=== PATIENT | male | born 1950 | race American Indian/Alaskan Native ===

== ENCOUNTER 2018-05-19 00:44 | Emergency (ER) | payer MEDICAID ==
[2018-05-19 03:32] VITALS: BP 164/75
== END 2018-05-19 10:08 | disposition left against medical advice (07) ==
LOC: ED 00:44
DX: E83.81 Hungry bone syndrome (principal); Z53.21 Procedure and treatment not carried out due to patient leaving prior to being seen by health care provider
CPT/HCPCS: 82962

== ENCOUNTER 2018-07-03 03:16 | Inpatient (IN) | payer MEDICAID, MEDICARE ==
[2018-07-03] MEDS ORDERED: NARCAN 2 MG/2 ML IV ONE (03:59)
[2018-07-03 04:00] LABS: Basophils % (Auto) 0.6 % (0.0-1.8); Eosinophils # (Auto) 0.2 K/mm3 (0.0-0.4); Eosinophils % (Auto) 2.4 % (0.0-4.3); Hematocrit 42.1 % (35.5-45.6); Hemoglobin 14.7 gm/dl (11.8-15.2); Lymphocytes # (Auto) 2.3 K/mm3 (1.2-5.4); Lymphocytes % (Auto) 36.4 % (13.4-35.0); Mean Corpuscular HGB Conc 35 % (32-34); Mean Corpuscular Hemoglobin 31 pg (28-32); Mean Corpuscular Volume 87 fl (84-94); Monocytes # (Auto) 0.7 K/mm3 (0.0-0.8); Monocytes % (Auto) 10.9 % (0.0-7.3); Platelet Count 164 K/mm3 (140-440); Red Blood Count 4.82 M/mm3 (3.65-5.03); Red Cell Distribution Width 15.4 % (13.2-15.2)
[2018-07-03 04:15] LABS: Alanine Aminotransferase 15 units/L (7-56); BUN/Creatinine Ratio 12; Blood Urea Nitrogen 16 mg/dL (9-20); Calcium 9.8 mg/dL (8.4-10.2); Hemolysis Index 15
--- NOTE | 2018-07-03 04:50 | Cat Scan Report ---
FINAL REPORT EXAM: CT HEAD/BRAIN WO CON HISTORY: ams TECHNIQUE: Routine axial imaging was obtained of the brain without IV contrast. There are no previous studies available for comparison. FINDINGS: There is mild age related atrophy. There is no evidence of acute stroke or hemorrhage. The ventricular system is symmetric in size. The basal cisterns appear normal. The visualized sinuses are clear. The mastoid air cells are well pneumatized. The calvarium appears intact. IMPRESSION: Age related atrophy. No evidence of acute stroke or hemorrhage.
[2018-07-03 05:07] LABS: Bilirubin,Urine NEG (Negative); Blood,Urine NEG (Negative); Color,Urine Yellow (Yellow); Mucus,Urine FEW /HPF; RBC,Urine < 1.0 /HPF (0.0-6.0); Urobilinogen,Urine < 2.0 mg/dL (<2.0)
[2018-07-03 05:22] LABS: Benzodiazepines Screen,Urine PRESUMPTIVE NEGATIVE; Cannabinoid Screen,Urine PRESUMPTIVE NEGATIVE; Cocaine Screen,Urine PRESUMPTIVE NEGATIVE; Methadone Screen,Urine PRESUMPTIVE NEGATIVE; Opiate Screen,Urine PRESUMPTIVE NEGATIVE
[2018-07-03 05:42] LABS: Amphetamine Screen,Urine PRESUMPTIVE POSITIVE
[2018-07-03] MEDS ORDERED: NACL 0.9% 1000 ML 1,000 ML IV ONE (06:28)
--- NOTE | 2018-07-03 07:06 | XRay Report ---
FINAL REPORT EXAM: XR CHEST 1V AP HISTORY: hypertension TECHNIQUE: A portable upright view the chest was obtained. FINDINGS: There are sternotomy sutures noted. The heart size is normal. The lungs are negative for infiltrates or congestion. Pleural fluid is not seen. The skeletal structures do not show any acute changes. IMPRESSION: Previous bypass surgery changes. No acute cardiopulmonary process.
[2018-07-03 07:08] LABS: INR 1.04 (0.87-1.13)
[2018-07-03 07:09] LABS: Partial Thromboplastin Time 25.4 Sec. (24.2-36.6)
[2018-07-03 07:18] LABS: Creatine Kinase MB 1.8 ng/mL (0.0-4.0)
--- NOTE | 2018-07-03 07:42 | Emergency Department Report ---
ED General Adult HPI - General Chief complaint: Altered Mental Status Stated complaint: LETHARGIC Time Seen by Provider: 07/03/18 06:02 Source: family, EMS Mode of arrival: Wheelchair Limitations: Altered Mental Status - History of Present Illness Initial comments: 67-year-old male with a history of schizophrenia was found by his daughter to be altered at about 2:30 AM. She noted the light was on in his room. She had room and found him to be lethargic. He was not speaking or following commands. She summoned EMS. Patient was transported to this facility without incident. The daughter states that he was apparently well yesterday with no antecedent symptoms. He had already had his initial medical screening prior to my arrival. On my evaluation he is responsive to stimuli both verbally and with purposeful movement. From what I can ascertain from previous notes his degree of lethargy is improving. He was noted to have amphetamines in his urine. According to his daughter he has no history of substance abuse and no prior overdose. She also denies any other episode of obtundation or seizure. -: unknown Improves with: none Worsens with: none - Related Data Allergies Allergy/AdvReac Type Severity Reaction Status Date / Time No Known Allergies Allergy Unverified 05/19/18 03:32 ED Review of Systems ROS: Stated complaint: LETHARGIC Other details as noted in HPI Comment: Unobtainable due to pts medical conditions ED Past Medical Hx - Past Medical History Previous Medical History?: Yes Hx Heart Attack/AMI: Yes (2005) Hx Diabetes: Yes Hx Psychiatric Treatment: Yes Additional medical history: SCHIZOPHRENIA - Surgical History Past Surgical History?: Yes Hx Open Heart Surgery: Yes (2005) - Social History Smoking Status: Former Smoker Substance Use Type: None ED Physical Exam - General Limitations: Altered Mental Status (I am giving the patient a GCS of 11, eye opening to stimuli, confused, localizes pain) General appearance: alert, in no apparent distress - Head Head exam: Present: atraumatic, normocephalic - Eye Eye exam: Present: normal appearance, PERRL, EOMI (as far as I can determine, no forced gaze deviation) - ENT ENT exam: Present: mucous membranes moist - Neck Neck exam: Present: normal inspection. Absent: tenderness, meningismus - Respiratory Respiratory exam: Present: normal lung sounds bilaterally. Absent: respiratory distress - Cardiovascular Cardiovascular Exam: Present: regular rate, normal rhythm. Absent: systolic murmur, diastolic murmur, rubs, gallop - GI/Abdominal GI/Abdominal exam: Present: soft, normal bowel sounds. Absent: distended, tenderness, guarding, rebound, rigid - Rectal Rectal exam: Present: deferred - Extremities Exam Extremities exam: Present: normal inspection, full ROM. Absent: calf tenderness - Back Exam Back exam: Present: normal inspection - Neurological Exam Neurological exam: Present: altered, CN II-XII intact (on limited exam) - Psychiatric Psychiatric exam: Present: other (obtunded) - Skin Skin exam: Present: warm, dry, intact, normal color. Absent: rash ED Course Vital Signs 07/03/18 07/03/18 07/03/18 03:25 03:48 03:49 Temperature 97.7 F Pulse Rate 78 73 74 Respiratory 20 15 14 Rate Blood Pressure 127/70 141/74 O2 Sat by Pulse 98 98 Oximetry 07/03/18 07/03/18 07/03/18 04:00 04:01 04:03 Temperature Pulse Rate 69 73 64 Respiratory 15 15 12 Rate Blood Pressure 123/62 123/62 123/62 O2 Sat by Pulse 98 99 98 Oximetry 07/03/18 07/03/18 07/03/18 04:05 04:07 04:09 Temperature Pulse Rate 74 65 71 Respiratory 12 14 12 Rate Blood Pressure 123/62 123/62 123/62 O2 Sat by Pulse 99 98 98 Oximetry 07/03/18 07/03/18 07/03/18 04:11 04:13 04:15 Temperature Pulse Rate 69 72 67 Respiratory 14 14 14 Rate Blood Pressure 123/62 123/62 123/62 O2 Sat by Pulse 98 98 98 Oximetry 07/03/18 07/03/18 07/03/18 04:17 04:19 04:21 Temperature Pulse Rate 71 70 65 Respiratory 12 12 14 Rate Blood Pressure 123/62 123/62 123/62 O2 Sat by Pulse 99 98 98 Oximetry 07/03/18 07/03/18 07/03/18 04:23 04:25 04:27 Temperature Pulse Rate 71 74 69 Respiratory 14 14 15 Rate Blood Pressure 123/62 123/62 123/62 O2 Sat by Pulse 99 99 98 Oximetry 07/03/18 07/03/18 07/03/18 04:29 04:30 05:35 Temperature Pulse Rate 70 64 Respiratory 12 13 Rate Blood Pressure 123/62 123/62 123/62 O2 Sat by Pulse 99 98 99 Oximetry 07/03/18 07/03/18 07/03/18 05:37 05:39 05:41 Temperature Pulse Rate 63 64 65 Respiratory 14 14 11 L Rate Blood Pressure 123/62 123/62 123/62 O2 Sat by Pulse 99 99 99 Oximetry 07/03/18 07/03/18 07/03/18 05:43 05:45 05:47 Temperature Pulse Rate 69 68 67 Respiratory 12 11 L 11 L Rate Blood Pressure 123/62 123/62 123/62 O2 Sat by Pulse 99 99 98 Oximetry 07/03/18 07/03/18 07/03/18 05:49 05:51 05:53 Temperature Pulse Rate 65 64 63 Respiratory 14 12 12 Rate Blood Pressure 123/62 123/62 123/62 O2 Sat by Pulse 99 99 99 Oximetry 07/03/18 07/03/18 07/03/18 05:55 05:57 05:59 Temperature Pulse Rate 69 70 69 Respiratory 12 11 L 10 L Rate Blood Pressure 123/62 123/62 123/62 O2 Sat by Pulse 98 99 98 Oximetry 07/03/18 07/03/18 07/03/18 06:01 06:03 06:05 Temperature Pulse Rate 64 69 65 Respiratory 12 14 11 L Rate Blood Pressure 123/62 123/62 123/62 O2 Sat by Pulse 99 100 98 Oximetry 07/03/18 07/03/18 07/03/18 06:07 06:09 06:11 Temperature Pulse Rate 70 68 66 Respiratory 11 L 11 L 10 L Rate Blood Pressure 123/62 123/62 123/62 O2 Sat by Pulse 99 99 99 Oximetry 07/03/18 07/03/18 07/03/18 06:13 06:15 06:17 Temperature Pulse Rate 66 66 66 Respiratory 11 L 10 L 11 L Rate Blood Pressure 123/62 123/62 123/62 O2 Sat by Pulse 98 98 98 Oximetry 07/03/18 07/03/18 07/03/18 06:19 06:21 06:23 Temperature Pulse Rate 66 66 61 Respiratory 11 L 11 L 14 Rate Blood Pressure 123/62 123/62 123/62 O2 Sat by Pulse 98 99 100 Oximetry 07/03/18 07/03/18 07/03/18 06:25 06:27 06:29 Temperature Pulse Rate 66 63 67 Respiratory 12 12 10 L Rate Blood Pressure 140/69 140/69 140/69 O2 Sat by Pulse 98 98 99 Oximetry 07/03/18 07/03/18 07/03/18 06:30 06:31 06:33 Temperature Pulse Rate 64 65 69 Respiratory 11 L 11 L 10 L Rate Blood Pressure 136/63 136/63 136/63 O2 Sat by Pulse 96 99 99 Oximetry 07/03/18 07/03/18 06:35 06:37 Temperature Pulse Rate 70 66 Respiratory 11 L 9 L Rate Blood Pressure 136/63 136/63 O2 Sat by Pulse 98 98 Oximetry - Reevaluation(s) Reevaluation #1: Patient is lethargic but responsive. He will be admitted to the medical service for further care and evaluation. 07/03/18 07:45 ED Medical Decision Making - Lab Data Result diagrams: 07/03/18 03:45 07/03/18 03:45 Laboratory Results - last 24 hr 07/03/18 07/03/18 07/03/18 03:31 03:45 03:45 WBC 6.3 RBC 4.82 Hgb 14.7 Hct 42.1 MCV 87 MCH 31 MCHC 35 H RDW 15.4 H Plt Count 164 Lymph % (Auto) 36.4 H [place] % (Auto) 10.9 H Eos % (Auto) 2.4 Baso % (Auto) 0.6 Lymph # 2.3 [place] # 0.7 Eos # 0.2 Baso # 0.0 Seg Neutrophils % 49.7 Seg Neutrophils # 3.2 PT INR APTT Sodium 141 Potassium 3.5 L Chloride 100.9 Carbon Dioxide 28 Anion Gap 16 BUN 16 Creatinine 1.3 Estimated GFR > 60 BUN/Creatinine Ratio 12 Glucose 115 H POC Glucose 105 Lactic Acid Calcium 9.8 Magnesium Total Bilirubin 0.20 AST 16 ALT 15 Alkaline Phosphatase 56 Ammonia Total Creatine Kinase CK-MB (CK-2) CK-MB (CK-2) Rel Index Troponin T NT-Pro-B Natriuret Pep Total Protein 6.8 Albumin 4.0 Albumin/Globulin Ratio 1.4 TSH Urine Color Urine Turbidity Urine pH Ur Specific [place] Urine Protein Urine Glucose (UA) Urine Ketones Urine Blood Urine Nitrite Urine Bilirubin Urine Urobilinogen Ur Leukocyte Esterase Urine WBC (Auto) Urine RBC (Auto) U Epithel Cells (Auto) Urine Mucus Urine Opiates Screen Urine Methadone Screen Acetaminophen Ur Barbiturates Screen Ur Phencyclidine Scrn Ur Amphetamines Screen U Benzodiazepines Scrn Urine Cocaine Screen U Marijuana (THC) Screen Drugs of Abuse Note Plasma/Serum Alcohol 07/03/18 07/03/18 07/03/18 03:45 03:45 06:38 WBC RBC Hgb Hct MCV MCH MCHC RDW Plt Count Lymph % (Auto) [place] % (Auto) Eos % (Auto) Baso % (Auto) Lymph # [place] # Eos # Baso # Seg Neutrophils % Seg Neutrophils # PT INR APTT Sodium Potassium Chloride Carbon Dioxide Anion Gap BUN Creatinine Estimated GFR BUN/Creatinine Ratio Glucose POC Glucose Lactic Acid 1.40 Calcium Magnesium Total Bilirubin AST ALT Alkaline Phosphatase Ammonia Total Creatine Kinase CK-MB (CK-2) CK-MB (CK-2) Rel Index Troponin T NT-Pro-B Natriuret Pep Total Protein Albumin Albumin/Globulin Ratio TSH 1.780 Urine Color Urine Turbidity Urine pH Ur Specific [place] Urine Protein Urine Glucose (UA) Urine Ketones Urine Blood Urine Nitrite Urine Bilirubin Urine Urobilinogen Ur Leukocyte Esterase Urine WBC (Auto) Urine RBC (Auto) U Epithel Cells (Auto) Urine Mucus Urine Opiates Screen Urine Methadone Screen Acetaminophen Ur Barbiturates Screen Ur Phencyclidine Scrn Ur Amphetamines Screen U Benzodiazepines Scrn Urine Cocaine Screen U Marijuana (THC) Screen Drugs of Abuse Note Plasma/Serum Alcohol < 0.01 07/03/18 07/03/18 07/03/18 06:38 06:38 06:38 WBC RBC Hgb Hct MCV MCH MCHC RDW Plt Count Lymph % (Auto) [place] % (Auto) Eos % (Auto) Baso % (Auto) Lymph # [place] # Eos # Baso # Seg Neutrophils % Seg Neutrophils # PT INR APTT Sodium Potassium Chloride Carbon Dioxide Anion Gap BUN Creatinine Estimated GFR BUN/Creatinine Ratio Glucose POC Glucose Lactic Acid Calcium Magnesium Total Bilirubin AST ALT Alkaline Phosphatase Ammonia 32.0 Total Creatine Kinase 68 CK-MB (CK-2) 1.8 CK-MB (CK-2) Rel Index 2.6 Troponin T NT-Pro-B Natriuret Pep Total Protein Albumin Albumin/Globulin Ratio TSH Urine Color Urine Turbidity Urine pH Ur Specific [place] Urine Protein Urine Glucose (UA) Urine Ketones Urine Blood Urine Nitrite Urine Bilirubin Urine Urobilinogen Ur Leukocyte Esterase Urine WBC (Auto) Urine RBC (Auto) U Epithel Cells (Auto) Urine Mucus Urine Opiates Screen Urine Methadone Screen Acetaminophen < 5.0 L Ur Barbiturates Screen Ur Phencyclidine Scrn Ur Amphetamines Screen U Benzodiazepines Scrn Urine Cocaine Screen U Marijuana (THC) Screen Drugs of Abuse Note Plasma/Serum Alcohol 07/03/18 07/03/18 07/03/18 06:38 06:38 Unknown WBC RBC Hgb Hct MCV MCH MCHC RDW Plt Count Lymph % (Auto) [place] % (Auto) Eos % (Auto) Baso % (Auto) Lymph # [place] # Eos # Baso # Seg Neutrophils % Seg Neutrophils # PT 14.1 INR 1.04 APTT 25.4 Sodium Potassium Chloride Carbon Dioxide Anion Gap BUN Creatinine Estimated GFR BUN/Creatinine Ratio Glucose POC Glucose Lactic Acid Calcium Magnesium 1.90 Total Bilirubin AST ALT Alkaline Phosphatase Ammonia Total Creatine Kinase CK-MB (CK-2) CK-MB (CK-2) Rel Index Troponin T < 0.010 NT-Pro-B Natriuret Pep 127.2 Total Protein Albumin Albumin/Globulin Ratio TSH Urine Color Yellow Urine Turbidity Clear Urine pH 5.0 Ur Specific [place] 1.020 Urine Protein 30 mg/dl Urine Glucose (UA) 50 Urine Ketones Neg Urine Blood Neg Urine Nitrite Neg Urine Bilirubin Neg Urine Urobilinogen < 2.0 Ur Leukocyte Esterase Neg Urine WBC (Auto) 2.0 Urine RBC (Auto) < 1.0 U Epithel Cells (Auto) < 1.0 Urine Mucus Few Urine Opiates Screen Urine Methadone Screen Acetaminophen Ur Barbiturates Screen Ur Phencyclidine Scrn Ur Amphetamines Screen U Benzodiazepines Scrn Urine Cocaine Screen U Marijuana (THC) Screen Drugs of Abuse Note Plasma/Serum Alcohol 07/03/18 Unknown WBC RBC Hgb Hct MCV MCH MCHC RDW Plt Count Lymph % (Auto) [place] % (Auto) Eos % (Auto) Baso % (Auto) Lymph # [place] # Eos # Baso # Seg Neutrophils % Seg Neutrophils # PT INR APTT Sodium Potassium Chloride Carbon Dioxide Anion Gap BUN Creatinine Estimated GFR BUN/Creatinine Ratio Glucose POC Glucose Lactic Acid Calcium Magnesium Total Bilirubin AST ALT Alkaline Phosphatase Ammonia Total Creatine Kinase CK-MB (CK-2) CK-MB (CK-2) Rel Index Troponin T NT-Pro-B Natriuret Pep Total Protein Albumin Albumin/Globulin Ratio TSH Urine Color Urine Turbidity Urine pH Ur Specific [place] Urine Protein Urine Glucose (UA) Urine Ketones Urine Blood Urine Nitrite Urine Bilirubin Urine Urobilinogen Ur Leukocyte Esterase Urine WBC (Auto) Urine RBC (Auto) U Epithel Cells (Auto) Urine Mucus Urine Opiates Screen Presumptive negative Urine Methadone Screen Presumptive negative Acetaminophen Ur Barbiturates Screen Presumptive negative Ur Phencyclidine Scrn Presumptive negative Ur Amphetamines Screen Presumptive positive U Benzodiazepines Scrn Presumptive negative Urine Cocaine Screen Presumptive negative U Marijuana (THC) Screen Presumptive negative Drugs of Abuse Note Disclamer Plasma/Serum Alcohol - EKG Data -: EKG Interpreted by Me EKG shows normal: sinus rhythm, axis, intervals, ST-T waves Rate: normal - EKG Data Interpretation: other (Q's in the inferior lead consistent with old zone) - Radiology Data Radiology results: report reviewed interpreted by me: CT of the head shows no acute process chest x-ray shows old CABG no acute process Critical care attestation.: If time is entered above; I have spent that time in minutes in the direct care of this critically ill patient, excluding procedure time. ED Disposition Clinical Impression: Altered mental status Qualifiers: Altered mental status type: stupor Qualified Code(s): R40.1 - Stupor Disposition: 09 OP ADMIT IP TO THIS HOSP Is pt being admited?: Yes Does the pt Need Aspirin: Yes Condition: Stable Referrals: PRIMARY CARE, [Primary Care Provider] - 3-5 Days Time of Disposition: 07:48
[2018-07-03] MEDS ORDERED: ASPIRIN PR ONE (07:48)
--- NOTE | 2018-07-03 08:48 | History and Physical Report ---
History of Present Illness Date of examination: 07/03/18 Date of admission: 07/03/18 07:49 Chief complaint: Altered mental status History of present illness: 67 year old -[place] male with past medical history significant for hypertension, hyperlipidemia, schizophrenia, diabetes mellitus, CAD status post CABG brought via EMS to the emergency department for complaints of altered mental status. Patient lives with his niece, and around 11:30 PM last night he was lying on the bed unresponsive. She called EMS and brought to the emergency department. Patient was discharged recently from [facility] for the management of his schizophrenia. Patient restarted wheezes on olanzapine yesterday. He had Inveg injection 2 weeks ago. Patient didn't have any fever, chills, cough, shortness of breath, chest pain. Patient can take care of his airways. Review of system couldn't be OBTAINED because the patient was altered. Past History Past Medical History: CAD, diabetes, hypertension Past Surgical History: CABG Social history: full code. denies: smoking, alcohol abuse, prescription drug abuse, IV drug use Family history: no significant family history Medications and Allergies Allergies Allergy/AdvReac Type Severity Reaction Status Date / Time No Known Allergies Allergy Unverified 05/19/18 03:32 Home Medications Medication Instructions Recorded Confirmed Last Taken Type AtorvaSTATin [Lipitor] 20 mg PO QHS 07/03/18 07/03/18 07/02/18 History HumaLOG Mix 75/25 Vial 20 units SUB-Q QPM 07/03/18 07/03/18 07/02/18 History HumaLOG Mix 75/25 Vial 28 units SUB-Q QAM 07/03/18 07/03/18 07/02/18 History Insulin Regular, Human [HumuLIN R] See Protocol SUB-Q ACHS 07/03/18 07/03/18 History Metoprolol [Lopressor TAB] 50 mg PO DAILY 07/03/18 07/03/18 07/02/18 History Naproxen [Naprosyn] 375 mg PO BID 07/03/18 07/03/18 07/02/18 History OLANZapine [Zyprexa] 2 tab PO QHS 07/03/18 07/03/18 07/02/18 History [place]-3/Dha/Epa/Fish Oil [[place] 3 1 gm PO DAILY 07/03/18 07/03/18 07/02/18 History 500 Softgel] Paliperidone Palmitate [Invega 117 mg IM QMONTH 07/03/18 07/03/18 06/13/18 History Sustenna] metFORMIN [Glucophage] 500 mg PO BID 07/03/18 07/03/18 07/02/18 History traZODone [Desyrel] 2 tab PO QHS PRN 07/03/18 07/03/18 07/02/18 History Active Meds: Active Medications Sodium Chloride (Nacl 0.9% 1000 Ml) 1,000 mls @ 125 mls/hr IV ONCE ONE Stop: 07/03/18 14:27 Last Admin: 07/03/18 06:50 Dose: 125 mls/hr Exam - Physical Exam Narrative exam: Not in cardiopulmonary distress. The patient appeared well nourished and normally developed. Vital signs as documented. Head exam is unremarkable. No scleral icterus . Neck is without jugular venous distension, thyromegaly, or carotid bruits. Lungs are clear to auscultation. Cardiac exam reveals regular rate and Rhythm. First and second heart sounds normal. No murmurs, rubs or gallops. Abdominal exam reveals normal bowel sounds, no masses, no organomegaly and no aortic enlargement. Extremities are nonedematous and both femoral and pedal pulses are normal. 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 - Constitutional Vitals: Temp Pulse Resp BP Pulse Ox 97.7 F 62 10 L 152/69 99 07/03/18 03:25 07/03/18 08:21 07/03/18 08:21 07/03/18 08:21 07/03/18 08:21 Results - Labs CBC & Chem 7: 07/03/18 03:45 07/03/18 03:45 Labs: Laboratory Last Values WBC 6.3 K/mm3 (4.5-11.0) 07/03/18 03:45 RBC 4.82 M/mm3 (3.65-5.03) 07/03/18 03:45 Hgb 14.7 gm/dl (11.8-15.2) 07/03/18 03:45 Hct 42.1 % (35.5-45.6) 07/03/18 03:45 MCV 87 fl (84-94) 07/03/18 03:45 MCH 31 pg (28-32) 07/03/18 03:45 MCHC 35 % (32-34) H 07/03/18 03:45 RDW 15.4 % (13.2-15.2) H 07/03/18 03:45 Plt Count 164 K/mm3 (140-440) 07/03/18 03:45 Lymph % (Auto) 36.4 % (13.4-35.0) H 07/03/18 03:45 [place] % (Auto) 10.9 % (0.0-7.3) H 07/03/18 03:45 Eos % (Auto) 2.4 % (0.0-4.3) 07/03/18 03:45 Baso % (Auto) 0.6 % (0.0-1.8) 07/03/18 03:45 Lymph # 2.3 K/mm3 (1.2-5.4) 07/03/18 03:45 [place] # 0.7 K/mm3 (0.0-0.8) 07/03/18 03:45 Eos # 0.2 K/mm3 (0.0-0.4) 07/03/18 03:45 Baso # 0.0 K/mm3 (0.0-0.1) 07/03/18 03:45 Seg Neutrophils % 49.7 % (40.0-70.0) 07/03/18 03:45 Seg Neutrophils # 3.2 K/mm3 (1.8-7.7) 07/03/18 03:45 PT 14.1 Sec. (12.2-14.9) 07/03/18 06:38 INR 1.04 (0.87-1.13) 07/03/18 06:38 APTT 25.4 Sec. (24.2-36.6) 07/03/18 06:38 Sodium 141 mmol/L (137-145) 07/03/18 03:45 Potassium 3.5 mmol/L (3.6-5.0) L 07/03/18 03:45 Chloride 100.9 mmol/L (98-107) 07/03/18 03:45 Carbon Dioxide 28 mmol/L (22-30) 07/03/18 03:45 Anion Gap 16 mmol/L 07/03/18 03:45 BUN 16 mg/dL (9-20) 07/03/18 03:45 Creatinine 1.3 mg/dL (0.8-1.5) 07/03/18 03:45 Estimated GFR > 60 ml/min 07/03/18 03:45 BUN/Creatinine Ratio 12 % 07/03/18 03:45 Glucose 115 mg/dL (75-100) H 07/03/18 03:45 POC Glucose 105 (70-105) 07/03/18 03:31 Lactic Acid 1.40 mmol/L (0.7-2.0) 07/03/18 06:38 Calcium 9.8 mg/dL (8.4-10.2) 07/03/18 03:45 Magnesium 1.90 mg/dL (1.7-2.3) 07/03/18 06:38 Total Bilirubin 0.20 mg/dL (0.1-1.2) 07/03/18 03:45 AST 16 units/L (5-40) 07/03/18 03:45 ALT 15 units/L (7-56) 07/03/18 03:45 Alkaline Phosphatase 56 units/L (35-129) 07/03/18 03:45 Ammonia 32.0 umol/L (25-60) 07/03/18 06:38 Total Creatine Kinase 68 units/L (55-170) 07/03/18 06:38 CK-MB (CK-2) 1.8 ng/mL (0.0-4.0) 07/03/18 06:38 CK-MB (CK-2) Rel Index 2.6 (0-4) 07/03/18 06:38 Troponin T < 0.010 ng/mL (0.00-0.029) 07/03/18 06:38 NT-Pro-B Natriuret Pep 127.2 pg/mL (0-900) 07/03/18 06:38 Total Protein 6.8 g/dL (6.3-8.2) 07/03/18 03:45 Albumin 4.0 g/dL (3.9-5) 07/03/18 03:45 Albumin/Globulin Ratio 1.4 % 07/03/18 03:45 TSH 1.780 mlU/mL (0.270-4.200) 07/03/18 03:45 Urine Color Yellow (Yellow) 07/03/18 Unknown Urine Turbidity Clear (Clear) 07/03/18 Unknown Urine pH 5.0 (5.0-7.0) 07/03/18 Unknown Ur Specific [place] 1.020 (1.003-1.030) 07/03/18 Unknown Urine Protein 30 mg/dl mg/dL (Negative) 07/03/18 Unknown Urine Glucose (UA) 50 mg/dL (Negative) 07/03/18 Unknown Urine Ketones Neg mg/dL (Negative) 07/03/18 Unknown Urine Blood Neg (Negative) 07/03/18 Unknown Urine Nitrite Neg (Negative) 07/03/18 Unknown Urine Bilirubin Neg (Negative) 07/03/18 Unknown Urine Urobilinogen < 2.0 mg/dL (<2.0) 07/03/18 Unknown Ur Leukocyte Esterase Neg (Negative) 07/03/18 Unknown Urine WBC (Auto) 2.0 /HPF (0.0-6.0) 07/03/18 Unknown Urine RBC (Auto) < 1.0 /HPF (0.0-6.0) 07/03/18 Unknown U Epithel Cells (Auto) < 1.0 /HPF (0-13.0) 07/03/18 Unknown Urine Mucus Few /HPF 07/03/18 Unknown Urine Opiates Screen Presumptive negative 07/03/18 Unknown Urine Methadone Screen Presumptive negative 07/03/18 Unknown Acetaminophen < 5.0 ug/mL (10.0-30.0) L 07/03/18 06:38 Ur Barbiturates Screen Presumptive negative 07/03/18 Unknown Ur Phencyclidine Scrn Presumptive negative 07/03/18 Unknown Ur Amphetamines Screen Presumptive positive 07/03/18 Unknown U Benzodiazepines Scrn Presumptive negative 07/03/18 Unknown Urine Cocaine Screen Presumptive negative 07/03/18 Unknown U Marijuana (THC) Screen Presumptive negative 07/03/18 Unknown Drugs of Abuse Note Disclamer 07/03/18 Unknown Plasma/Serum Alcohol < 0.01 % (0-0.07) 07/03/18 03:45 Assessment and Plan Assessment and plan: 67-year-old -[place] woman with medical history significant for schizophrenia presented to the emergency department for complaints of altered mental status. Toxic encephalopathy - UDS is positive for amphetamine - His niece denied he has been using any drugs - Patient was of olanzapine for the last 2 weeks and restarted yesterday, could be due to drug reaction - Patient is improving, protect his airway, started to wake up and talk Schizophrenia - Hold his medications, mental health consult placed for medication management Hypertension, CAD, hyperlipidemia - Continue aspirin, statin, and metoprolol DVT prophylaxis - Lovenox Disposition - Admit to inpatient care
[2018-07-03] MEDS ORDERED: HumuLIN R SUB-Q SCH ×2 (16:30)
[2018-07-03] MEDS: HumuLIN R SUB-Q SCH ×2 (16:30→22:05)
[2018-07-03] MEDS: LOVENOX SUB-Q SCH (22:05)
[2018-07-04 07:37] LABS: BUN/Creatinine Ratio 13; Blood Urea Nitrogen 10 mg/dL (9-20); Calcium 8.5 mg/dL (8.4-10.2); Hemolysis Index 7
[2018-07-04] MEDS ORDERED: K-DUR PO ONE (07:51)
[2018-07-04] MEDS: HumuLIN R SUB-Q SCH ×4 (08:14→22:45)
[2018-07-04] MEDS: LOPRESSOR PO SCH (09:14)
--- NOTE | 2018-07-04 14:25 | Progress Note ---
Assessment and Plan Assessment and plan: 67-year-old -Turkish woman with medical history significant for schizophrenia presented to the emergency department for complaints of altered mental status. Toxic encephalopathy - UDS is positive for amphetamine, but patient denied using - His niece denied he has been using any drugs - Patient was of olanzapine for the last 2 weeks and restarted yesterday, could be due to drug reaction - Resolved, patient is alert and oriented Schizophrenia - Hold his medications, mental health consult placed for medication management Hypertension, CAD, hyperlipidemia - Continue aspirin, statin, and metoprolol DVT prophylaxis - Lovenox Disposition - Patient can be discharged once psych adjust his medications History Interval history: Patient was seen and evaluated this morning, patient was alert and oriented. Hospitalist Physical - Physical exam Narrative exam: Not in cardiopulmonary distress. The patient appeared well nourished and normally developed. Vital signs as documented. Head exam is unremarkable. No scleral icterus . Neck is without jugular venous distension, thyromegaly, or carotid bruits. Lungs are clear to auscultation. Cardiac exam reveals regular rate and Rhythm. First and second heart sounds normal. No murmurs, rubs or gallops. Abdominal exam reveals normal bowel sounds, no masses, no organomegaly and no aortic enlargement. Extremities are nonedematous and both femoral and pedal pulses are normal. 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 - Constitutional Vitals: Temp Pulse Resp BP Pulse Ox 98.2 F 55 L 20 153/76 96 07/04/18 05:56 07/04/18 09:14 07/04/18 05:56 07/04/18 09:14 07/04/18 05:56 Results - Labs CBC & Chem 7: 07/03/18 03:45 07/04/18 06:14 Labs: Laboratory Last Values WBC 6.3 K/mm3 (4.5-11.0) 07/03/18 03:45 RBC 4.82 M/mm3 (3.65-5.03) 07/03/18 03:45 Hgb 14.7 gm/dl (11.8-15.2) 07/03/18 03:45 Hct 42.1 % (35.5-45.6) 07/03/18 03:45 MCV 87 fl (84-94) 07/03/18 03:45 MCH 31 pg (28-32) 07/03/18 03:45 MCHC 35 % (32-34) H 07/03/18 03:45 RDW 15.4 % (13.2-15.2) H 07/03/18 03:45 Plt Count 164 K/mm3 (140-440) 07/03/18 03:45 Lymph % (Auto) 36.4 % (13.4-35.0) H 07/03/18 03:45 Spink % (Auto) 10.9 % (0.0-7.3) H 07/03/18 03:45 Eos % (Auto) 2.4 % (0.0-4.3) 07/03/18 03:45 Baso % (Auto) 0.6 % (0.0-1.8) 07/03/18 03:45 Lymph # 2.3 K/mm3 (1.2-5.4) 07/03/18 03:45 Spink # 0.7 K/mm3 (0.0-0.8) 07/03/18 03:45 Eos # 0.2 K/mm3 (0.0-0.4) 07/03/18 03:45 Baso # 0.0 K/mm3 (0.0-0.1) 07/03/18 03:45 Seg Neutrophils % 49.7 % (40.0-70.0) 07/03/18 03:45 Seg Neutrophils # 3.2 K/mm3 (1.8-7.7) 07/03/18 03:45 PT 14.1 Sec. (12.2-14.9) 07/03/18 06:38 INR 1.04 (0.87-1.13) 07/03/18 06:38 APTT 25.4 Sec. (24.2-36.6) 07/03/18 06:38 POC ABG pH 7.438 (7.35-7.45) 07/03/18 12:49 POC ABG pCO2 36.9 (35-45) 07/03/18 12:49 POC ABG pO2 75 (80-105) L 07/03/18 12:49 POC ABG HCO3 24.9 07/03/18 12:49 POC ABG Total CO2 26 07/03/18 12:49 POC ABG O2 Sat 95 07/03/18 12:49 POC ABG Base Excess 1 09/14/18 12:49 FiO2 21 % 07/03/18 12:49 Sodium 144 mmol/L (137-145) 07/04/18 06:14 Potassium 3.3 mmol/L (3.6-5.0) L 07/04/18 06:14 Chloride 110.4 mmol/L (98-107) H 07/04/18 06:14 Carbon Dioxide 23 mmol/L (22-30) 07/04/18 06:14 Anion Gap 14 mmol/L 07/04/18 06:14 BUN 10 mg/dL (9-20) 07/04/18 06:14 Creatinine 0.8 mg/dL (0.8-1.5) 07/04/18 06:14 Estimated GFR > 60 ml/min 07/04/18 06:14 BUN/Creatinine Ratio 13 % 07/04/18 06:14 Glucose 146 mg/dL (75-100) H 07/04/18 06:14 POC Glucose 258 (70-105) H 07/04/18 11:49 Lactic Acid 1.40 mmol/L (0.7-2.0) 07/03/18 06:38 Calcium 8.5 mg/dL (8.4-10.2) 07/04/18 06:14 Magnesium 1.90 mg/dL (1.7-2.3) 07/03/18 06:38 Total Bilirubin 0.20 mg/dL (0.1-1.2) 07/03/18 03:45 AST 16 units/L (5-40) 07/03/18 03:45 ALT 15 units/L (7-56) 07/03/18 03:45 Alkaline Phosphatase 56 units/L (35-129) 07/03/18 03:45 Ammonia 32.0 umol/L (25-60) 07/03/18 06:38 Total Creatine Kinase 68 units/L (55-170) 07/03/18 06:38 CK-MB (CK-2) 1.8 ng/mL (0.0-4.0) 07/03/18 06:38 CK-MB (CK-2) Rel Index 2.6 (0-4) 07/03/18 06:38 Troponin T < 0.010 ng/mL (0.00-0.029) 07/03/18 06:38 NT-Pro-B Natriuret Pep 127.2 pg/mL (0-900) 07/03/18 06:38 Total Protein 6.8 g/dL (6.3-8.2) 07/03/18 03:45 Albumin 4.0 g/dL (3.9-5) 07/03/18 03:45 Albumin/Globulin Ratio 1.4 % 07/03/18 03:45 TSH 1.780 mlU/mL (0.270-4.200) 07/03/18 03:45 Urine Color Yellow (Yellow) 07/03/18 Unknown Urine Turbidity Clear (Clear) 07/03/18 Unknown Urine pH 5.0 (5.0-7.0) 07/03/18 Unknown Ur Specific Distant 1.020 (1.003-1.030) 07/03/18 Unknown Urine Protein 30 mg/dl mg/dL (Negative) 07/03/18 Unknown Urine Glucose (UA) 50 mg/dL (Negative) 07/03/18 Unknown Urine Ketones Neg mg/dL (Negative) 07/03/18 Unknown Urine Blood Neg (Negative) 07/03/18 Unknown Urine Nitrite Neg (Negative) 07/03/18 Unknown Urine Bilirubin Neg (Negative) 07/03/18 Unknown Urine Urobilinogen < 2.0 mg/dL (<2.0) 07/03/18 Unknown Ur Leukocyte Esterase Neg (Negative) 07/03/18 Unknown Urine WBC (Auto) 2.0 /HPF (0.0-6.0) 07/03/18 Unknown Urine RBC (Auto) < 1.0 /HPF (0.0-6.0) 07/03/18 Unknown U Epithel Cells (Auto) < 1.0 /HPF (0-13.0) 07/03/18 Unknown Urine Mucus Few /HPF 07/03/18 Unknown Urine Opiates Screen Presumptive negative 07/03/18 Unknown Urine Methadone Screen Presumptive negative 07/03/18 Unknown Acetaminophen < 5.0 ug/mL (10.0-30.0) L 07/03/18 06:38 Ur Barbiturates Screen Presumptive negative 07/03/18 Unknown Ur Phencyclidine Scrn Presumptive negative 07/03/18 Unknown Ur Amphetamines Screen Presumptive positive 07/03/18 Unknown U Benzodiazepines Scrn Presumptive negative 07/03/18 Unknown Urine Cocaine Screen Presumptive negative 07/03/18 Unknown U Marijuana (THC) Screen Presumptive negative 07/03/18 Unknown Drugs of Abuse Note Disclamer 07/03/18 Unknown Plasma/Serum Alcohol < 0.01 % (0-0.07) 07/03/18 03:45
--- NOTE | 2018-07-04 19:57 | Consultation ---
History of Present Illness - Reason for Consult Consult date: 07/04/18 Reason for consult: psychiatric evaluation - Chief Complaint Chief complaint: "medication side effect" - History of Present Psychiatric Illness 67 year old AA male seen for psychiatric evaluation on the medical floor. His niece, Tonya Lawson ([phone]), and sister, Brandie Barr ([phone]), were present and provided information. Mr. Barr presented to the hospital with altered mental status after his niece found him to be unresponsive at home. The family believes his change in mental status was related to starting zyprexa 30mg after he was off of it for a little over 2 weeks. He was reportedly sedated for 18 hours. Now he is alert and oriented x 4. He reports being incarcerated for 30 years. He was diaganosed with schizophrenia, paranoid type in 1979 and has been on and off thorazine, and later, zyprexa until now. He was released from senior care 12/2017. He has an outpatient psychiatrist. He is on Invega Sustenna 117mg monthly and is due for it 07/16/2018. He has chronic paranoia and states "someone slipped me a maximo." He denies command hallucinations to harm himself or others. He denies suicidal or homicidal thoughts. His movement is a concern to the family. He is reported to have parkinson's symptoms and this was observed as well. Unable to assess his gait today. He is reported to move slowly and shuffle his feet. He has a tremor in his hands. He was recommended by his outpatient provider to see a neurologist for evaluation. Medications and Allergies Allergies Allergy/AdvReac Type Severity Reaction Status Date / Time No Known Allergies Allergy Unverified 05/19/18 03:32 Home Medications Medication Instructions Recorded Confirmed Last Taken Type AtorvaSTATin [Lipitor] 20 mg PO QHS 07/03/18 07/03/18 07/02/18 History HumaLOG Mix 75/25 Vial 20 units SUB-Q QPM 07/03/18 07/03/18 07/02/18 History HumaLOG Mix 75/25 Vial 28 units SUB-Q QAM 07/03/18 07/03/18 07/02/18 History Insulin Regular, Human [HumuLIN R] See Protocol SUB-Q ACHS 07/03/18 07/03/18 History Metoprolol [Lopressor TAB] 50 mg PO DAILY 07/03/18 07/03/18 07/02/18 History Naproxen [Naprosyn] 375 mg PO BID 07/03/18 07/03/18 07/02/18 History OLANZapine [Zyprexa] 2 tab PO QHS 07/03/18 07/03/18 07/02/18 History [place]-3/Dha/Epa/Fish Oil [[place] 3 1 gm PO DAILY 07/03/18 07/03/18 07/02/18 History 500 Softgel] Paliperidone Palmitate [Invega 117 mg IM QMONTH 07/03/18 07/03/18 06/13/18 History Sustenna] metFORMIN [Glucophage] 500 mg PO BID 07/03/18 07/03/18 07/02/18 History traZODone [Desyrel] 2 tab PO QHS PRN 07/03/18 07/03/18 07/02/18 History Active Meds: Active Medications Atorvastatin Calcium (Lipitor) 20 mg PO QHS [facility] Last Admin: 07/03/18 22:05 Dose: 20 mg Enoxaparin Sodium (Lovenox) 40 mg SUB-Q QDAY@2200 [facility] Last Admin: 07/03/18 22:05 Dose: 40 mg Insulin Human Regular (Humulin R) 0 units SUB-Q [facility]; Protocol Last Admin: 07/04/18 17:27 Dose: 10 units Metoprolol Tartrate (Lopressor) 50 mg PO DAILY [facility] Last Admin: 07/04/18 09:14 Dose: 50 mg Past psychiatric history - Past Medical History Past Medical History: diabetes - past Psychiatric treatment and history Psych: Schizophrenia - Social History Social history: lives with family Mental Status Exam - Vital signs Last Vital Signs Temp 98.4 F 07/04/18 17:33 Pulse 62 07/04/18 17:33 Resp 18 07/04/18 17:33 BP 159/74 07/04/18 17:33 Pulse Ox 97 07/04/18 17:33 - Exam Orientation: time, place, person Affect: normal Mood: calm Thought content: paranoia Thought Process: Intact Perceptions: other (denies auditory hallucinations) Speech: normal rate and pattern Concentration: focused Motor activity: other (see HPI) Level of consciousness: alert Memory: Intact Sleep Symptoms: None Interaction: cooperative Results Result Diagrams: 07/03/18 03:45 07/04/18 06:14 Abnormal lab results 07/03/18 07/04/18 07/04/18 Range/Units 21:24 05:54 06:14 Potassium 3.3 L (3.6-5.0) mmol/L Chloride 110.4 H (98-107) mmol/L Glucose 146 H (75-100) mg/dL POC Glucose 492 H 142 H (70-105) 07/04/18 07/04/18 Range/Units 07:59 11:49 Potassium (3.6-5.0) mmol/L Chloride (98-107) mmol/L Glucose (75-100) mg/dL POC Glucose 144 H 258 H (70-105) All other labs normal. Assessment and Plan Assessment and plan: Impression: His altered mental status was likely related to starting the Zyprexa back at 30mg after being off of it for over 2 weeks. schizophrenia, paranoid type tardive dyskinesia likely He has been on thorazine and other antipsychotics for almost 40 years. Recommendations: He has not received the zyprexa since being at [facility]. He is currently alert and is not overtly psychotic. The risk of continuing zyprexa outweighs the benefit. His family was informed they should monitor him for signs of psychotic behavior and call the [place] crisis line or seek emergency care if needed. He is up to date on Invega Sustenna. He is recommended to follow up with his outpatient psychiatrist this week (call Friday). The family expressed concern about his ability to ambulate. This was addressed with the nurse, who addressed it with the hospitalist. Education regarding TD was provided to pt and family, along with the available treatments, Austedo and Ingrezza. He is recommended to see a neurologist/ speciality movement clinic. All treatment recommendations were discussed with his sister and niece.
[2018-07-04] MEDS: LOVENOX SUB-Q SCH (22:47)
[2018-07-05 06:31] LABS: BUN/Creatinine Ratio 10; Blood Urea Nitrogen 9 mg/dL (9-20); Hemolysis Index 2
[2018-07-05] MEDS: HumuLIN R SUB-Q SCH ×2 (07:48→12:32)
[2018-07-05] MEDS: LOPRESSOR PO SCH (09:44)
--- NOTE | 2018-07-05 12:04 | Discharge Summary ---
Providers - Providers Date of Admission: 07/03/18 07:49 Date of discharge: 07/08/18 Attending physician: JULIENNE CRESPO MD 07/03/18 03:53 Speech Therapy Evaluation and Treat [CONS] Stat Reason For Exam: failed swallow screen 07/03/18 09:36 Consult to Mental Health [CONS] Routine Reason For Exam: AMS after olanzapine, schizophrenia Place consult to:: medication adjustment Notified:: Phone number called:: [phone] Was contact made?: Yes If yes, spoke with:: edita? 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 Hospital course: 67-year-old -[place] woman with medical history significant for schizophrenia presented to the emergency department for complaints of altered mental status. Patient was off olanzapine for the last 2 weeks and restarted on the day of the event, could be due to drug reaction. UDS was positive for amphetamine but the patient and his niece denied using any drugs. Patient's altered mental status/encephalopathy was evolving by the time I saw him in the ED and was completely resolved while he was in the floor. I believe most likely the change in mental status due to his medications. I consulted psychiatry to adjust his medications and they came and saw him and recommended to hold on olanzapine and to see his psychiatry next day. I have discussed the management plan with his niece and agreed with the management plan. Patient was alert and oriented at the time of discharge. patient discharged home in a stable condition. Disposition: DC-01 TO HOME OR SELFCARE Time spent for discharge: 32 minutes - Discharge Diagnoses (1) Altered mental status Status: Acute Qualifiers: Altered mental status type: stupor Qualified Code(s): R40.1 - Stupor (2) Schizophrenia Status: Acute Core Measure Documentation - Palliative Care Palliative Care/ Comfort Measures: Not Applicable - Core Measures Any of the following diagnoses?: none Exam - Physical Exam Narrative exam: Not in cardiopulmonary distress. The patient appeared well nourished and normally developed. Vital signs as documented. Head exam is unremarkable. No scleral icterus . Neck is without jugular venous distension, thyromegaly, or carotid bruits. Lungs are clear to auscultation. Cardiac exam reveals regular rate and Rhythm. First and second heart sounds normal. No murmurs, rubs or gallops. Abdominal exam reveals normal bowel sounds, no masses, no organomegaly and no aortic enlargement. Extremities are nonedematous and both femoral and pedal pulses are normal. 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 - Constitutional Vitals: Temp Pulse Resp BP Pulse Ox 97.6 F 78 20 148/84 98 07/05/18 04:58 07/05/18 09:44 07/05/18 04:58 07/05/18 09:44 07/05/18 04:58 Plan Activity: advance as tolerated Weight Bearing Status: Weight Bear as Tolerated Diet: regular, low salt, diabetic Additional Instructions: Patient advised to call his psychiatrist tomorrow. Follow up with: PRIMARY CAREMD [Primary Care Provider] - 3-5 Days
[2018-07-05 13:15] VITALS: BP 123/47
--- NOTE | 2018-07-05 14:57 | Progress Note ---
Subjective - Reason for Consult Consult date: 07/05/18 Reason for consult: Psychiatric Follow-up Evaluation - Chief Complaint Chief complaint: "medication side effect" Mental Status Exam - Vital signs Last Vital Signs Temp 98.4 F 07/05/18 12:19 Pulse 65 07/05/18 12:19 Resp 18 07/05/18 12:19 BP 123/47 07/05/18 12:19 Pulse Ox 96 07/05/18 12:19
== END 2018-07-05 16:00 | disposition home or self-care (01) | DRG 92 ==
LOC: ED 03:16 → 3A 07:49
PROVIDERS: ADMIT Internal Medicine; ATTEND Internal Medicine
PROC: 4A033R1 Measurement of Arterial Saturation, Peripheral, Percutaneous Approach (ICD-10-PCS; principal; 2018-07-03)
DX: G92 Toxic encephalopathy (principal); F20.0 Paranoid schizophrenia; E11.9 Type 2 diabetes mellitus without complications; I10 Essential (primary) hypertension; I25.10 Atherosclerotic heart disease of native coronary artery without angina pectoris; E78.5 Hyperlipidemia, unspecified; Z95.1 Presence of aortocoronary bypass graft; Z79.899 Other long term (current) drug therapy; Z79.4 Long term (current) use of insulin; I25.2 Old myocardial infarction
CPT/HCPCS: 36415; 36600; 51701; 70450; 71045; 80048; 80053; 80307; 80320; 81001; 82140; 82550; 82553; 82803; 82962; 83735; 83880; 84443; 84484; 85025; 85610; 85730; 93005; 93010; 96361; 96374; A9270-GY; G0480; G8978-GP; G8979-GP; G8980-GP; G8996-GN; G8997-GN; G8998-GN; J1650; J1815; J2310; J7030

== ENCOUNTER 2018-07-09 01:09 | Emergency (ER) | payer MEDICARE ==
[2018-07-09 01:27] VITALS: BP 135/72
[2018-07-09 02:18] LABS: Basophils % (Auto) 0.7 % (0.0-1.8); Eosinophils # (Auto) 0.1 K/mm3 (0.0-0.4); Eosinophils % (Auto) 2.1 % (0.0-4.3); Hematocrit 44.3 % (35.5-45.6); Hemoglobin 15.2 gm/dl (11.8-15.2); Lymphocytes # (Auto) 1.5 K/mm3 (1.2-5.4); Lymphocytes % (Auto) 26.5 % (13.4-35.0); Mean Corpuscular HGB Conc 34 % (32-34); Mean Corpuscular Hemoglobin 30 pg (28-32); Mean Corpuscular Volume 88 fl (84-94); Monocytes # (Auto) 0.7 K/mm3 (0.0-0.8); Monocytes % (Auto) 13.2 % (0.0-7.3); Platelet Count 167 K/mm3 (140-440); Red Blood Count 5.05 M/mm3 (3.65-5.03); Red Cell Distribution Width 15.3 % (13.2-15.2)
[2018-07-09 02:43] LABS: BUN/Creatinine Ratio 20; Blood Urea Nitrogen 22 mg/dL (9-20); Calcium 9.9 mg/dL (8.4-10.2); Hemolysis Index 8
[2018-07-09 04:11] LABS: Bilirubin,Urine NEG (Negative); Blood,Urine NEG (Negative); Color,Urine Yellow (Yellow); Mucus,Urine FEW /HPF; Protein,Urine <15 mg/dL mg/dL (Negative); Urobilinogen,Urine < 2.0 mg/dL (<2.0); WBC,Urine < 1.0 /HPF (0.0-6.0)
== END 2018-07-09 04:13 | disposition left against medical advice (07) ==
LOC: ED 01:09
DX: R73.9 Hyperglycemia, unspecified (principal); Z53.21 Procedure and treatment not carried out due to patient leaving prior to being seen by health care provider
CPT/HCPCS: 36415; 80048; 81001; 82805; 85025

== ENCOUNTER 2019-01-14 00:49 | Emergency (ER) | payer MEDICARE, MEDICAID ==
[2019-01-14 01:13] VITALS: BP 129/72
== END 2019-01-14 03:15 | disposition left against medical advice (07) ==
LOC: ED 00:49
DX: R53.1 Weakness (principal); Z53.21 Procedure and treatment not carried out due to patient leaving prior to being seen by health care provider

== ENCOUNTER 2020-05-27 03:14 | Inpatient (IN) | payer MEDICAID, MEDICARE ==
[2020-05-27] MEDS ORDERED: NALOXONE 2 MG/2 ML INJ ONE (03:35)
[2020-05-27] MEDS ORDERED: NALOXONE 2 MG/2 ML INJ IV ONE (03:35)
[2020-05-27] MEDS: NALOXONE 2 MG/2 ML INJ IV ONE ×2 (03:38→06:45)
[2020-05-27 03:44] LABS: Basophils % (Auto) 0.5 % (0.0-1.8); Eosinophils # (Auto) 0.1 K/mm3 (0.0-0.4); Eosinophils % (Auto) 1.8 % (0.0-4.3); Hematocrit 37.2 % (35.5-45.6); Hemoglobin 12.7 gm/dl (11.8-15.2); Lymphocytes # (Auto) 1.6 K/mm3 (1.2-5.4); Lymphocytes % (Auto) 33.5 % (13.4-35.0); Mean Corpuscular HGB Conc 34 % (32-34); Mean Corpuscular Volume 90 fl (84-94); Monocytes # (Auto) 0.5 K/mm3 (0.0-0.8); Monocytes % (Auto) 11.7 % (0.0-7.3); Platelet Count 133 K/mm3 (140-440); Red Blood Count 4.12 M/mm3 (3.65-5.03); Red Cell Distribution Width 14.8 % (13.2-15.2)
--- NOTE | 2020-05-27 03:47 | Consultation ---
Medications and Allergies Allergies Allergy/AdvReac Type Severity Reaction Status Date / Time No Known Allergies Allergy Unverified 05/19/18 03:32 Home Medications Medication Instructions Recorded Confirmed Last Taken Type AtorvaSTATin [Lipitor] 20 mg PO QHS 07/03/18 07/03/18 07/02/18 History HumaLOG Mix 75/25 Vial 20 units SUB-Q QPM 07/03/18 07/03/18 07/02/18 History HumaLOG Mix 75/25 Vial 28 units SUB-Q QAM 07/03/18 07/03/18 07/02/18 History Insulin Regular, Human [HumuLIN R] See Protocol SUB-Q ACHS 07/03/18 07/03/18 07/02/18 History Metoprolol [Lopressor TAB] 50 mg PO DAILY 07/03/18 07/03/18 07/02/18 History Naproxen [Naprosyn TAB] 375 mg PO BID 07/03/18 07/03/18 07/02/18 History [place]-3/Dha/Epa/Fish Oil [[place] 3 1 gm PO DAILY 07/03/18 07/03/18 07/02/18 History 500 Softgel] Paliperidone Palmitate [Invega 117 mg IM QMONTH 07/03/18 07/03/18 06/13/18 History Sustenna] metFORMIN [Glucophage] 500 mg PO BID 07/03/18 07/03/18 07/02/18 History traZODone [Desyrel] 2 tab PO QHS PRN 07/03/18 07/03/18 07/02/18 History Physical Examination - Vital Signs Vital Signs: Vital Signs Temp Pulse Resp BP Pulse Ox 98.2 F 70 13 133/69 100 05/27/20 03:35 05/27/20 03:35 05/27/20 03:35 05/27/20 03:35 05/27/20 03:35 Results - Laboratory Findings Abnormal Lab Findings: Abnormal Labs 05/27/20 03:46 POC Glucose 232 H Assessment and Plan [facility] Date of Service: 05/27/2020 03:19:46 Impression: Rule Out Acute Ischemic Stroke vs toxic metabolic encephalopathy (substance abuse) Comments/Sign-Out: Patient with history of schizophrenia, hypertension, Diabetes Mellitus, cardiac stent Presents with altered mental status Head CT: No acute Intracranial abnormality. NIHSS 19 (likely inflated due to altered mental status) Symptoms/presentation likely toxic metabolic encephalopathy (concern for sub stance use, mental status did not improve after one dose of IV narcan 2mg) Exam is nonfocal (no gaze deviation, no obvious hemianopia, face is symmetric, moving all four extremities equally, no obvious loss of sensation), suspicion for Acute Ischemic Stroke is low but cannot rule out Acute Ischemic Stroke just based on clinical presentation. Last time known well>4.5 hours therefore not a candidate for IV tPA. Will do STAT head and neck CTA to investigate for Large Vessel Occlusion. Metrics: Last Known Well: 05/26/2020 18:00:00 [employer] Notification Time: 05/27/2020 03:19:17 Arrival Time: 05/27/2020 03:14:00 Stamp Time: 05/27/2020 03:19:46 Time First Login Attempt: 05/27/2020 03:22:38 Video Start Time: 05/27/2020 03:22:38 Symptoms: altered mental status NIHSS Start Assessment Time: 05/27/2020 03:29:48 Patient is not a candidate for tPA. Patient was not deemed candidate for tPA thrombolytics because of Last Well Known Above 4.5 Hours. Video End Time: 05/27/2020 03:41:05 CT head showed no acute hemorrhage or acute core infarct. CT head was reviewed. Lower Likelihood of Large Vessel Occlusion but Following Stat Studies are Recommended CTA Head and Neck. ED Physician notified of diagnostic impression and management plan on 05/27/2020 03:45:50 Our recommendations are outlined below. Recommendations: Activate Stroke Protocol Admission/Order Set Stroke/Telemetry Floor Neuro Checks Bedside Swallow Eval DVT Prophylaxis IV Fluids, Normal Saline Head of Bed 30 Degrees Euglycemia and Avoid Hyperthermia (PRN Acetaminophen) Antiplatelet Therapy Recommended UDS in ER Routine Noncontrast brain MRI History of Present Illness: Patient is a 69 year old Male. Patient was brought by EMS for symptoms of altered mental status Patient with history of schizophrenia, hypertension, Diabetes Mellitus, cardiac stent last known well per nursin:00 shortly after, after coming from outside had altered mental status. Anticoagulation or Antiplatelet use: unclear Premorbid Level of function: unclear Examination: 1A: Level of Consciousness - Requires repeated stimulation to arouse + 2 1B: Ask Month and Age - Both Questions Right + 0 1C: Blink Eyes & Squeeze Hands - Performs 0 Tasks + 2 2: Test Horizontal Extraocular Movements - Normal + 0 3: Test Visual Adams - No Visual Loss + 0 4: Test Facial Palsy (Use Grimace if Obtunded) - Normal symmetry + 0 5A: Test Left Arm Motor Drift - No Effort Against [place] + 3 5B: Test Right Arm Motor Drift - No Effort Against [place] + 3 6A: Test Left Leg Motor Drift - No Effort Against [place] + 3 6B: Test Right Leg Motor Drift - No Effort Against [place] + 3 7: Test Limb Ataxia (FNF/Heel-Dowell) - No Ataxia + 0 8: Test Sensation - Normal; No sensory loss + 0 9: Test Language/Aphasia - Severe Aphasia: Fragmentary Expression, Inference Needed, Cannot Identify Materials + 2 10: Test Dysarthria - Mild-Moderate Dysarthria: Slurring but can be understood + 1 11: Test Extinction/Inattention - No abnormality + 0 NIHSS Score: 19 Due to the immediate potential for life-threatening deterioration due to underlying acute neurologic illness, I spent 19 minutes providing critical care. This time includes time for face to face visit via telemedicine, review of medical records, imaging studies and discussion of findings with providers, the patient and/or family. Dr Negro [facility] Case [id number]
--- NOTE | 2020-05-27 03:52 | Cat Scan Report ---
CT head/brain wo con INDICATION / CLINICAL INFORMATION: Stroke symptoms. TECHNIQUE: All CT scans at this location are performed using CT dose reduction for ALARA by means of automated e xposure control. COMPARISON: 07/03/2018 FINDINGS: Mild atrophy is present. No mass or mass effect is seen. There is no evidence of intracranial hemorrh age. No obvious area of infarction is identified. Visualized paranasal sinuses are clear. IMPRESSION: No acute findings or interval change from 07/03/2018 COMMUNICATION: Time of Communication: 0245 hours Licensed Practitioner Receiving Report: Dr. Trevino Signer Name: Gee Cazares MD FACR Signed: 05/27/2020 3:48 AM Workstation Name: [id number]
[2020-05-27 03:59] LABS: INR 1.09 (0.87-1.13); Partial Thromboplastin Time 26.7 Sec. (24.2-36.6); Thrombin Time 16.4 Sec. (15.1-19.6)
[2020-05-27 04:05] LABS: BUN/Creatinine Ratio 28; Blood Urea Nitrogen 25 mg/dL (9-20); Calcium 9.8 mg/dL (8.4-10.2); Hemolysis Index 7
--- NOTE | 2020-05-27 04:41 | Cat Scan Report ---
CTA NECK WITH CONTRAST HISTORY: Unresponsive COMPARISON: None. TECHNIQUE: Routine CTA of the neck was performed. 3-D/MIP reformats were postprocessed. Percentage s tenosis is determined by direct quantitative measurements of diseased internal carotid artery diamete r compared with normal distal internal carotid artery reference segments or by criteria similar to NA SCET where applicable.All CT scans at this location are performed using CT dose reduction for ALARA b y means of automated exposure control CONTRAST: 100 ml of Omnipaque 300 FINDINGS: Aortic arch: No significant abnormality. Cervical vertebral arteries: Both vertebral arteries are normal from their origins up to basilar form ation. Calcified atheromatous plaques at the origin of right vertebral artery Common carotid arteries: No significant abnormality. Carotid bifurcations: No significant abnormality Cervical internal carotid arteries: No significant abnormality. Additional findings: None. IMPRESSION: 1. No significant abnormality. Signer Name: Winnie Laguna MD Signed: 05/27/2020 4:36 AM Workstation Name: [id number]
--- NOTE | 2020-05-27 04:44 | Cat Scan Report ---
CTA HEAD WITH CONTRAST HISTORY: Unresponsive COMPARISON: None. TECHNIQUE: Routine non-contrast CT Head, CTA of the head and post-contrast CT Head are performed. 3-D /MIP reformats postprocessed. All CT scans at this location are performed using CT dose reduction for ALARA by means of automated exposure control CONTRAST: 100 ml of Omnipaque 350 FINDINGS: CTA Head: Intracranial vertebral arteries: No significant abnormality. Basilar artery: No significant abnormality. Posterior cerebral arteries: No significant abnormality. Intracranial internal carotid arteries: No significant abnormality. Anterior cerebral arteries: No significant abnormality. Middle cerebral arteries: No significant abnormality. Dural venous sinuses:Not optimally opacified. No significant abnormality. Additional findings: None. IMPRESSION: 1. No significant abnormality. Signer Name: Winnie Laguna MD Signed: 05/27/2020 4:40 AM Workstation Name: [id number]
[2020-05-27 05:31] LABS: Bilirubin,Urine NEG (Negative); Blood,Urine SM (Negative); Color,Urine Yellow (Yellow); Mucus,Urine FEW /HPF; Urobilinogen,Urine < 2.0 mg/dL (<2.0)
[2020-05-27 05:36] LABS: Amphetamine Screen,Urine PRESUMPTIVE NEGATIVE; Benzodiazepines Screen,Urine PRESUMPTIVE NEGATIVE; Cannabinoid Screen,Urine PRESUMPTIVE NEGATIVE; Cocaine Screen,Urine PRESUMPTIVE NEGATIVE; Methadone Screen,Urine PRESUMPTIVE NEGATIVE; Opiate Screen,Urine PRESUMPTIVE NEGATIVE
--- NOTE | 2020-05-27 05:39 | Emergency Department Report ---
ED General Adult HPI - General Chief complaint: Altered Mental Status Stated complaint: ALTERED MENTAL STATUS Time Seen by Provider: 05/27/20 03:18 Source: EMS Mode of arrival: Stretcher Limitations: Altered Mental Status - History of Present Illness Initial comments: Patient is a 69-year-old F [place] male who is presenting with altered mental status and poor responsiveness. Family states that around 6 PM yesterday he went outside to do some yard work. When he returned back to the house he seemed to be stumbling. Family told paramedics that this will occur sometimes and they believe that he is using some type of illicit substance. Patient then was seen several hours later in a stuporous state slumped over. Family was unable to arouse him and they called paramedics. Paramedics were only able to elicit response from the patient with pain. Vital signs appeared to be within normal limits. The only thing the patient is able to say is stop that when I did a sternal rub when he arrived. He did try to grab my hands with both arms. - Related Data Home Medications Medication Instructions Recorded Confirmed Last Taken AtorvaSTATin [Lipitor] 20 mg PO QHS 07/03/18 07/03/18 07/02/18 HumaLOG Mix 75/25 Vial 20 units SUB-Q QPM 07/03/18 07/03/18 07/02/18 HumaLOG Mix 75/25 Vial 28 units SUB-Q QAM 07/03/18 07/03/18 07/02/18 Insulin Regular, Human [HumuLIN R] See Protocol SUB-Q ACHS 07/03/18 07/03/18 07/02/18 Metoprolol [Lopressor TAB] 50 mg PO DAILY 07/03/18 07/03/18 07/02/18 Naproxen [Naprosyn TAB] 375 mg PO BID 07/03/18 07/03/18 07/02/18 Eureka-3/Dha/Epa/Fish Oil [[place] 3 1 gm PO DAILY 07/03/18 07/03/18 07/02/18 500 Softgel] Paliperidone Palmitate [Invega 117 mg IM QMONTH 07/03/18 07/03/18 06/13/18 Sustenna] metFORMIN [Glucophage] 500 mg PO BID 07/03/18 07/03/18 07/02/18 traZODone [Desyrel] 2 tab PO QHS PRN 07/03/18 07/03/18 07/02/18 Allergies Allergy/AdvReac Type Severity Reaction Status Date / Time No Known Allergies Allergy Unverified 05/19/18 03:32 ED Review of Systems ROS: Stated complaint: ALTERED MENTAL STATUS Other details as noted in HPI Comment: Unobtainable due to pts medical conditions ED Past Medical Hx - Past Medical History Hx Hypertension: Yes Hx Heart Attack/AMI: Yes ([place], [place] 2005) Hx Diabetes: Yes Hx Psychiatric Treatment: Yes Additional medical history: SCHIZOPHRENIA - Surgical History Hx Open Heart Surgery: Yes (2005) - Social History Smoking Status: Unknown if ever smoked - Medications Home Medications: Home Medications Medication Instructions Recorded Confirmed Last Taken Type AtorvaSTATin [Lipitor] 20 mg PO QHS 07/03/18 07/03/18 07/02/18 History HumaLOG Mix 75/25 Vial 20 units SUB-Q QPM 07/03/18 07/03/18 07/02/18 History HumaLOG Mix 75/25 Vial 28 units SUB-Q QAM 07/03/18 07/03/18 07/02/18 History Insulin Regular, Human [HumuLIN R] See Protocol SUB-Q ACHS 07/03/18 07/03/18 07/02/18 History Metoprolol [Lopressor TAB] 50 mg PO DAILY 07/03/18 07/03/18 07/02/18 History Naproxen [Naprosyn TAB] 375 mg PO BID 07/03/18 07/03/18 07/02/18 History Eureka-3/Dha/Epa/Fish Oil [[place] 3 1 gm PO DAILY 07/03/18 07/03/18 07/02/18 History 500 Softgel] Paliperidone Palmitate [Invega 117 mg IM QMONTH 07/03/18 07/03/18 06/13/18 History Sustenna] metFORMIN [Glucophage] 500 mg PO BID 07/03/18 07/03/18 07/02/18 History traZODone [Desyrel] 2 tab PO QHS PRN 07/03/18 07/03/18 07/02/18 History ED Physical Exam - General Limitations: Altered Mental Status General appearance: lethargic - Head Head exam: Present: atraumatic, normocephalic - Eye Eye exam: Present: normal appearance, PERRL, EOMI - ENT ENT exam: Present: mucous membranes moist - Neck Neck exam: Present: normal inspection - Respiratory Respiratory exam: Present: normal lung sounds bilaterally. Absent: respiratory distress, wheezes, rales, rhonchi - Cardiovascular Cardiovascular Exam: Present: regular rate, normal rhythm, normal heart sounds. Absent: systolic murmur, diastolic murmur, rubs, gallop - GI/Abdominal GI/Abdominal exam: Present: soft, normal bowel sounds. Absent: distended, tenderness, guarding, rebound - Rectal Rectal exam: Present: deferred - Extremities Exam Extremities exam: Present: normal inspection - Back Exam Back exam: Present: normal inspection - Neurological Exam Neurological exam: Present: altered, other (see below) - Skin Skin exam: Present: warm, dry, intact, normal color. Absent: rash - Other Other exam information: Examination: 1A: Level of Consciousness - Requires repeated stimulation to arouse + 2 1B: Ask Month and Age - Both Questions Right + 0 1C: Blink Eyes & Squeeze Hands - Performs 0 Tasks + 2 2: Test Horizontal Extraocular Movements - Normal + 0 3: Test Visual Adams - No Visual Loss + 0 4: Test Facial Palsy (Use Grimace if Obtunded) - Normal symmetry + 0 5A: Test Left Arm Motor Drift - No Effort Against [place] + 3 5B: Test Right Arm Motor Drift - No Effort Against [place] + 3 6A: Test Left Leg Motor Drift - No Effort Against [place] + 3 6B: Test Right Leg Motor Drift - No Effort Against [place] + 3 7: Test Limb Ataxia (FNF/Heel-Dowell) - No Ataxia + 0 8: Test Sensation - Normal; No sensory loss + 0 9: Test Language/Aphasia - Severe Aphasia: Fragmentary Expression, Inference Needed, Cannot Identify Materials + 2 10: Test Dysarthria - Mild-Moderate Dysarthria: Slurring but can be understood + 1 11: Test Extinction/Inattention - No abnormality + 0 NIHSS Score: 19 ED Course Vital Signs 05/27/20 05/27/20 05/27/20 03:35 04:35 05:13 Temperature 98.2 F Pulse Rate 70 63 62 Respiratory 13 12 Rate Blood Pressure 133/69 Blood Pressure 189/93 [Right] O2 Sat by Pulse 100 98 Oximetry ED Medical Decision Making - Lab Data Result diagrams: 05/27/20 03:34 05/27/20 03:34 Lab Results 05/27/20 05/27/20 05/27/20 Range/Units 03:34 03:34 03:34 WBC 4.7 (4.5-11.0) K/mm3 RBC 4.12 (3.65-5.03) M/mm3 Hgb 12.7 (11.8-15.2) gm/dl Hct 37.2 (35.5-45.6) % MCV 90 (84-94) fl MCH 31 (28-32) pg MCHC 34 (32-34) % RDW 14.8 (13.2-15.2) % Plt Count 133 L (140-440) K/mm3 Lymph % (Auto) 33.5 (13.4-35.0) % Edgar % (Auto) 11.7 H (0.0-7.3) % Eos % (Auto) 1.8 (0.0-4.3) % Baso % (Auto) 0.5 (0.0-1.8) % Lymph # 1.6 (1.2-5.4) K/mm3 Edgar # 0.5 (0.0-0.8) K/mm3 Eos # 0.1 (0.0-0.4) K/mm3 Baso # 0.0 (0.0-0.1) K/mm3 Seg Neutrophils % 52.5 (40.0-70.0) % Seg Neutrophils # 2.4 (1.8-7.7) K/mm3 PT 14.3 (12.2-14.9) Sec. INR 1.09 (0.87-1.13) APTT 26.7 (24.2-36.6) Sec. Thrombin Time 16.4 (15.1-19.6) Sec. Sodium 147 H (137-145) mmol/L Potassium 4.6 (3.6-5.0) mmol/L Chloride 106.2 (98-107) mmol/L Carbon Dioxide 27 (22-30) mmol/L Anion Gap 18 mmol/L BUN 25 H (9-20) mg/dL Creatinine 0.9 (0.8-1.3) mg/dL Estimated GFR > 60 ml/min BUN/Creatinine Ratio 28 % Glucose 255 H (75-100) mg/dL POC Glucose (70-105) Calcium 9.8 (8.4-10.2) mg/dL Total Creatine Kinase 87 (55-170) units/L CK-MB (CK-2) 2.0 (0.0-4.0) ng/mL CK-MB (CK-2) Rel Index 2.2 (0-4) Troponin T < 0.010 (0.00-0.029) ng/mL Urine Color (Yellow) Urine Turbidity (Clear) Urine pH (5.0-7.0) Ur Specific [place] (1.003-1.030) Urine Protein (Negative) mg/dL Urine Glucose (UA) (Negative) mg/dL Urine Ketones (Negative) mg/dL Urine Blood (Negative) Urine Nitrite (Negative) Urine Bilirubin (Negative) Urine Urobilinogen (<2.0) mg/dL Ur Leukocyte Esterase (Negative) Urine WBC (Auto) (0.0-6.0) /HPF Urine RBC (Auto) (0.0-6.0) /HPF Urine Mucus /HPF Plasma/Serum Alcohol (0-0.07) % 05/27/20 05/27/20 05/27/20 Range/Units 03:34 03:46 04:22 WBC (4.5-11.0) K/mm3 RBC (3.65-5.03) M/mm3 Hgb (11.8-15.2) gm/dl Hct (35.5-45.6) % MCV (84-94) fl MCH (28-32) pg MCHC (32-34) % RDW (13.2-15.2) % Plt Count (140-440) K/mm3 Lymph % (Auto) (13.4-35.0) % [place] % (Auto) (0.0-7.3) % Eos % (Auto) (0.0-4.3) % Baso % (Auto) (0.0-1.8) % Lymph # (1.2-5.4) K/mm3 [place] # (0.0-0.8) K/mm3 Eos # (0.0-0.4) K/mm3 Baso # (0.0-0.1) K/mm3 Seg Neutrophils % (40.0-70.0) % Seg Neutrophils # (1.8-7.7) K/mm3 PT (12.2-14.9) Sec. INR (0.87-1.13) APTT (24.2-36.6) Sec. Thrombin Time (15.1-19.6) Sec. Sodium (137-145) mmol/L Potassium (3.6-5.0) mmol/L Chloride (98-107) mmol/L Carbon Dioxide (22-30) mmol/L Anion Gap mmol/L BUN (9-20) mg/dL Creatinine (0.8-1.3) mg/dL Estimated GFR ml/min BUN/Creatinine Ratio % Glucose (75-100) mg/dL POC Glucose 232 H (70-105) Calcium (8.4-10.2) mg/dL Total Creatine Kinase (55-170) units/L CK-MB (CK-2) (0.0-4.0) ng/mL CK-MB (CK-2) Rel Index (0-4) Troponin T (0.00-0.029) ng/mL Urine Color Yellow (Yellow) Urine Turbidity Clear (Clear) Urine pH 5.0 (5.0-7.0) Ur Specific [place] 1.052 H (1.003-1.030) Urine Protein 30 mg/dl (Negative) mg/dL Urine Glucose (UA) >=500 (Negative) mg/dL Urine Ketones 20 (Negative) mg/dL Urine Blood Sm (Negative) Urine Nitrite Neg (Negative) Urine Bilirubin Neg (Negative) Urine Urobilinogen < 2.0 (<2.0) mg/dL Ur Leukocyte Esterase Neg (Negative) Urine WBC (Auto) 5.0 (0.0-6.0) /HPF Urine RBC (Auto) 8.0 (0.0-6.0) /HPF Urine Mucus Few /HPF Plasma/Serum Alcohol < 0.01 (0-0.07) % - EKG Data -: EKG Interpreted by Ut EKG shows normal: sinus rhythm, axis, intervals, QRS complexes, ST-T waves Rate: normal - EKG Data Interpretation: normal EKG - Radiology Data [facility] [address] [place] [address] Cat Scan Report Signed Patient: MARIA VICTORIA HALE MR#: [id number] : 1950 Acct:[id number] Age/Sex: 69 / M ADM Date: 05/27/20 Loc: ED Attending Dr: Ordering Physician: AIDA TREVINO MD Date of Service: 05/27/20 Procedure(s): CT head/brain wo con Accession Number(s): [id number] cc: AIDA TREVINO MD CT head/brain wo con INDICATION / CLINICAL INFORMATION: Stroke symptoms. TECHNIQUE: All CT scans at this location are performed using CT dose reduction for ALARA by means of automated exposure control. COMPARISON: 07/03/2018 FINDINGS: Mild atrophy is present. No mass or mass effect is seen. There is no evidence of intracranial hemorrhage. No obvious area of infarction is identified. Visualized paranasal sinuses are clear. IMPRESSION: No acute findings or interval change from 07/03/2018 COMMUNICATION: Time of Communication: 0245 hours Licensed Practitioner Receiving Report: Dr. Trevino Signer Name: Gee Cazares MD FACR Signed: 05/27/2020 3:48 AM Workstation Name: [employer] CTA HEAD WITH CONTRAST HISTORY: Unresponsive COMPARISON: None. TECHNIQUE: Routine non-contrast CT Head, CTA of the head and post-contrast CT Head are performed. 3-D/MIP reformats postprocessed. All CT scans at this location are performed using CT dose reduction for ALARA by means of automated exposure control CONTRAST: 100 ml of Omnipaque 350 FINDINGS: CTA Head: Intracranial vertebral arteries: No significant abnormality. Basilar artery: No significant abnormality. Posterior cerebral arteries: No significant abnormality. Intracranial internal carotid arteries: No significant abnormality. Anterior cerebral arteries: No significant abnormality. Middle cerebral arteries: No significant abnormality. Dural venous sinuses:Not optimally opacified. No significant abnormality. Additional findings: None. IMPRESSION: 1. No significant abnormality. Signer Name: Winnie Laguna MD Signed: 05/27/2020 4:40 AM Workstation Name: [id number] CTA NECK WITH CONTRAST HISTORY: Unresponsive COMPARISON: None. TECHNIQUE: Routine CTA of the neck was performed. 3-D/MIP reformats were postprocessed. Percentage stenosis is determined by direct quantitative measurements of diseased internal carotid artery diameter compared with normal distal internal carotid artery reference segments or by criteria similar to NASCET where applicable.All CT scans at this location are performed using CT dose reduction for ALARA by means of automated exposure control CONTRAST: 100 ml of Omnipaque 300 FINDINGS: Aortic arch: No significant abnormality. Cervical vertebral arteries: Both vertebral arteries are normal from their origins up to basilar formation. Calcified atheromatous plaques at the origin of right vertebral artery Common carotid arteries: No significant abnormality. Carotid bifurcations: No significant abnormality Cervical internal carotid arteries: No significant abnormality. Additional findings: None. IMPRESSION: 1. No significant abnormality. Signer Name: Winnie Laguna MD Signed: 05/27/2020 4:36 AM Workstation Name: [id number] - Medical Decision Making Patient is a 69-year-old F [place] male past medical history of diabetes schizophrenia who is in a stuporous state at this time. Patient is unresponsive except for painful stimuli. Drug screen still pending at the time of adm ission. Patient is a 2017 has similar episode where he was unresponsive for almost 24 hours. He tested positive for amphetamines only at that time. Patient to be admitted to the hospitalist service for observation while we await clinical sobriety to obtain more collateral information of what actually happened with the patient. Critical care attestation.: If time is entered above; I have spent that time in minutes in the direct care of this critically ill patient, excluding procedure time. ED Disposition Clinical Impression: Altered mental status Qualifiers: Altered mental status type: stupor Qualified Code(s): R40.1 - Stupor Disposition: DC-09 OP ADMIT IP TO THIS HOSP Is pt being admited?: Yes Does the pt Need Aspirin: No Condition: Stable Time of Disposition: 05:50
[2020-05-27] MEDS ORDERED: SODIUM CHLORIDE 0.9% 1000 ML 1,000 ML IV SCH (06:00)
[2020-05-27] MEDS ORDERED: oxyCODONE /ACETAMINOPHEN 5-325MG TAB PO PRN (15:27)
[2020-05-27] MEDS ORDERED: ACETAMINOPHEN 325 MG TAB PO PRN ×2 (15:27→15:28)
[2020-05-27] MEDS ORDERED: MAGNESIUM HYDROXIDE (MOM) ORAL LIQD UDC PO PRN (15:28)
[2020-05-27] MEDS ORDERED: PROMETHAZINE 25 MG RECT SUPP PR PRN (15:28)
[2020-05-27] MEDS ORDERED: METOCLOPRAMIDE 10 MG TAB PO PRN (15:28)
[2020-05-27] MEDS ORDERED: ONDANSETRON 4 MG/2 ML INJ IV PRN (15:28)
--- NOTE | 2020-05-27 16:25 | History and Physical Report ---
<JAYME FARIAS - Last Filed: 05/27/20 16:33> History of Present Illness Date of examination: 05/27/20 Date of admission: 05/27/20 05:51 Chief complaint: AMS History of present illness: This is a 69-year-old F [place] male who is presenting with altered mental status and poor responsiveness. patient has history of schizophrenia and substance use. unable to obtain information from patient due to patient very lethargic -only moans and opens eye with painfully stimuli. Per ED note- Family states that around 6 PM yesterday patient went outside to do some yard work. When he returned back to the house he seemed to be stumbling. Family told paramedics that this has happened in the past and they believe that he is using some type of illicit substance. ED work up shows CTA of the neck -negative for acute large vessel occlusion CTA of the Neck/Head-no significant finding WBC 4.7, hemoglobin 12.7, Platelet 133, Sodium 147, Glucose 255 Past History Past Medical History: diabetes, hypertension Social history: other (hx of substance use) Family history: no significant family history Medications and Allergies Allergies Allergy/AdvReac Type Severity Reaction Status Date / Time No Known Allergies Allergy Unverified 05/19/18 03:32 Home Medications Medication Instructions Recorded Confirmed Last Taken Type Paliperidone Palmitate [Invega 234 mg IM QMONTH 07/03/18 05/27/20 06/13/18 History Sustenna] traZODone [Desyrel] 2 tab PO QHS PRN 07/03/18 05/27/20 07/02/18 History Aspirin [Adult Aspirin] 81 mg PO DAILY 05/27/20 05/27/20 Unknown History Atorvastatin [Lipitor] 40 mg PO QHS 05/27/20 05/27/20 Unknown History Cetirizine HCl [ZyrTEC 10mg cap] 10 mg PO DAILY 05/27/20 05/27/20 Unknown History Divalproex [Jose LEE] 500 mg PO BID 05/27/20 05/27/20 Unknown History Gabapentin 300 mg PO HS 05/27/20 05/27/20 Unknown History Insulin Detemir [Levemir Flextouch] 22 unit SQ HS 05/27/20 05/27/20 Unknown History Meloxicam [Mobic] 7.5 mg PO QDAY 05/27/20 05/27/20 Unknown History OLANZapine [Zyprexa] 50 mg PO HS 05/27/20 05/27/20 Unknown History Synjardy Xr 25-1,000 mg Tablet 25 mg PO DAILY 05/27/20 05/27/20 Unknown History glyBURIDE [Diabeta] 10 mg PO BID 05/27/20 05/27/20 Unknown History Active Meds: Active Medications Acetaminophen (Tylenol) 650 mg PO Q4H PRN PRN Reason: Pain MILD(1-3)/Fever >100.5/NAYAK Aspirin (Aspirin) 325 mg PO QDAY BENJAMÍN Atorvastatin Calcium (Lipitor) 80 mg PO QHS BENJAMÍN Bisacodyl (Dulcolax) 10 mg UT QDAY PRN PRN Reason: Constipation Famotidine (Pepcid) 10 mg PO BID [facility] Sodium Chloride (Nacl 0.9% 1000 Ml) 1,000 mls @ 125 mls/hr IV DIRECT BENJAMÍN Labetalol HCl (Labetalol) 10 mg IV Q4H PRN PRN Reason: Hypertension Magnesium Hydroxide (Milk Of Magnesia) 30 ml PO Q4H PRN PRN Reason: Constipation Metoclopramide HCl (Reglan) 10 mg PO Q6H PRN PRN Reason: Nausea And Vomiting Ondansetron HCl (Zofran) 4 mg IV Q8H PRN PRN Reason: Nausea And Vomiting Oxycodone/Acetaminophen (Percocet 5/325) 1 tab PO Q6H PRN PRN Reason: Pain, Moderate (4-6) Promethazine HCl (Phenergan) 25 mg UT Q6H PRN PRN Reason: Nausea And Vomiting Senna (Senokot) 8.6 mg PO Q12HR [facility] Sodium Chloride (Sodium Chloride Flush Syringe 10 Ml) 10 ml IV PRN PRN PRN Reason: LINE FLUSH Review of Systems ROS unobtainable: due to mental status Neurological: change in mentation (Altered mental status-opens eye on painfull stimuli) Psychiatric: other (history Schizophrenia) Exam - Constitutional Vitals: Temp Pulse Resp BP Pulse Ox 97.7 F 76 12 134/64 100 05/27/20 06:59 05/27/20 06:59 05/27/20 06:59 05/27/20 06:59 05/27/20 08:56 General appearance: Present: no acute distress, well-nourished - EENT Eyes: Present: PERRL ENT: hearing intact, clear oral mucosa - Neck Neck: Present: supple, normal ROM - Respiratory Respiratory effort: normal Respiratory: bilateral: CTA - Cardiovascular Heart rate: 83 Heart Sounds: Present: S1 & S2. Absent: rub, click - Extremities Extremities: pulses symmetrical, No edema Peripheral Pulses: within normal limits - Abdominal General gastrointestinal: Present: soft, non-tender, non-distended, normal bowel sounds Male genitourinary: Present: normal - Integumentary Integumentary: Present: clear, warm, dry - Musculoskeletal Musculoskeletal: other (altered mental status-moves extremities on painfull stimuli) - Psychiatric Psychiatric: appropriate mood/affect, intact judgment & insight - Neurologic Neurologic: focal deficits, moves all extremities, other (Tele neuro consulted) - Allied Health Allied health notes reviewed: nursing HEART Score - HEART Score History: Slightly suspicious Troponin: Troponin T < 0.010 ng/mL (0.00-0.029) 05/27/20 03:34 Results - Labs CBC & Chem 7: 05/27/20 03:34 05/27/20 03:34 Labs: Abnormal lab results 05/27/20 05/27/20 05/27/20 Range/Units 03:34 03:34 03:46 Plt Count 133 L (140-440) K/mm3 [place] % (Auto) 11.7 H (0.0-7.3) % Sodium 147 H (137-145) mmol/L BUN 25 H (9-20) mg/dL Glucose 255 H (75-100) mg/dL POC Glucose 232 H (70-105) Ur Specific [place] (1.003-1.030) 05/27/20 Range/Units 04:22 Plt Count (140-440) K/mm3 [place] % (Auto) (0.0-7.3) % Sodium (137-145) mmol/L BUN (9-20) mg/dL Glucose (75-100) mg/dL POC Glucose (70-105) Ur Specific [place] 1.052 H (1.003-1.030) Assessment and Plan - Patient Problems (1) History of substance abuse Current Visit: Yes Status: Acute Plan to address problem: patient hard to arouse but opens eye with painful stimuli Hx of substance abuse with unresposived Urine toxicology done-f/u with result (2) Altered mental status Current Visit: Yes Status: Acute Qualifiers: Altered mental status type: stupor Qualified Code(s): R40.1 - Stupor Plan to address problem: CT of the head done-no acute process Telenuerologist consulted CTA of the neck and head-no acute vessel occulusion Neuro checks Pt/ot and speech consult for swallow study NPO and continue IV hydration Continue antiplatelet with ASA MRI of the brain -f/u with result Head of Bed 30 Degrees (3) Schizophrenia Current Visit: No Status: Acute Plan to address problem: Supportive care Willresume home anti-psychotic (4) Thrombocytopenia Current Visit: Yes Status: Acute Plan to address problem: ? cause multifactorial-chronic/alcohol use/viral infection Monitor CBC (5) Hypernatremia Current Visit: Yes Status: Acute Plan to address problem: continue IV hydration with 1/2 NS Monitor sodium level (6) Hyperglycemia Current Visit: Yes Status: Acute Plan to address problem: Likely dehydration/diabetes monitor blood sugar [id number]-f/u with result (7) Hypertension Current Visit: Yes Status: Acute Qualifiers: Hypertension type: essential hypertension Qualified Code(s): I10 - Essential (primary) hypertension Plan to address problem: Monitor blood pressure Resume home antihypertensive-Lopressor 50 mg BID ECHO -ordered f/u with result-r/o vegetation-hx of substance use <MOON GAYTAN R - Last Filed: 05/29/20 09:46> History of Present Illness Date of admission: 05/28/20 14:45 Medications and Allergies Active Meds: Active Medications Acetaminophen (Tylenol) 650 mg PO Q4H PRN PRN Reason: Pain MILD(1-3)/Fever >100.5/NAYAK Aspirin (Aspirin) 325 mg PO QDAY [facility] Last Admin: 05/28/20 10:42 Dose: 325 mg Documented by: Atorvastatin Calcium (Lipitor) 80 mg PO QHS [facility] Last Admin: 05/28/20 21:36 Dose: 80 mg Documented by: Bisacodyl (Dulcolax) 10 mg UT QDAY PRN PRN Reason: Constipation Divalproex Sodium (Depakote Dr) 500 mg PO BID [facility] Last Admin: 05/28/20 21:36 Dose: 500 mg Documented by: Enoxaparin Sodium (Enoxaparin) 40 mg SUB-Q QDAY@2200 [facility] Last Admin: 05/28/20 21:37 Dose: 40 mg Documented by: Famotidine (Pepcid) 10 mg PO BID [facility] Last Admin: 05/28/20 21:36 Dose: 10 mg Documented by: Sodium Chloride (Nacl 0.45% 1000 Ml) 1,000 mls @ 125 mls/hr IV DIRECT [facility] Last Admin: 05/28/20 06:19 Dose: 125 mls/hr Documented by: Insulin Human Regular (Humulin R) 0 unit SUB-Q ACHS [facility]; Protocol Last Admin: 05/28/20 21:36 Dose: 3 unit Documented by: Labetalol HCl (Labetalol) 10 mg IV Q4H PRN PRN Reason: Hypertension Magnesium Hydroxide (Milk Of Magnesia) 30 ml PO Q4H PRN PRN Reason: Constipation Metoclopramide HCl (Reglan) 10 mg PO Q6H PRN PRN Reason: Nausea And Vomiting Ondansetron HCl (Zofran) 4 mg IV Q8H PRN PRN Reason: Nausea And Vomiting Oxycodone/Acetaminophen (Percocet 5/325) 1 tab PO Q6H PRN PRN Reason: Pain, Moderate (4-6) Promethazine HCl (Phenergan) 25 mg UT Q6H PRN PRN Reason: Nausea And Vomiting Senna (Senokot) 8.6 mg PO Q12HR [facility] Last Admin: 05/28/20 21:36 Dose: 8.6 mg Documented by: Sodium Chloride (Sodium Chloride Flush Syringe 10 Ml) 10 ml IV PRN PRN PRN Reason: LINE FLUSH Exam - Constitutional Vitals: Temp Pulse Resp BP Pulse Ox 97.7 F 58 L 20 165/72 99 05/29/20 08:13 05/29/20 08:13 05/29/20 08:13 05/29/20 08:13 05/29/20 08:13 HEART Score - HEART Score Troponin: Troponin T < 0.010 ng/mL (0.00-0.029) 05/27/20 03:34 Results - Labs CBC & Chem 7: 05/28/20 08:10 05/28/20 08:10 Labs: Abnormal lab results 05/28/20 05/28/20 05/28/20 Range/Units 12:15 16:36 21:02 POC Glucose 201 H 231 H 255 H (70-105) 05/29/20 Range/Units 07:51 POC Glucose 197 H (70-105) Assessment and Plan I saw and evaluated the patient. I agree with the findings and the plan of care as documented in the Nurse Practitioner's~note, with the following corrections and additions. Acute toxic encephalopathy -We will rule out acute CVA, tele-neurology consulted, MRI ordered will follow result
[2020-05-27] MEDS: DIVALPROEX DR 500 MG TAB PO SCH (21:56)
[2020-05-27] MEDS: ENOXAPARIN 40 MG/0.4 ML INJ SUB-Q SCH (21:56)
[2020-05-27] MEDS: ASPIRIN 325 MG TAB PO SCH (21:56)
[2020-05-27] MEDS: SENNOSIDES 8.6 MG TAB PO SCH (21:57)
[2020-05-27] MEDS: FAMOTIDINE 10 MG TAB PO SCH (21:57)
[2020-05-27] MEDS ORDERED: METOPROLOL TARTRATE 50 MG TAB PO SCH (22:00)
[2020-05-27] MEDS: SODIUM CHLORIDE 0.45% 1000 ML 1,000 ML IV SCH (22:53)
[2020-05-27] MEDS: INSULIN REGULAR, HUMAN 100 UNIT/ML 3ML VIAL SUB-Q SCH (22:54)
[2020-05-28] MEDS: SODIUM CHLORIDE 0.45% 1000 ML 1,000 ML IV SCH (06:19)
[2020-05-28] MEDS: INSULIN REGULAR, HUMAN 100 UNIT/ML 3ML VIAL SUB-Q SCH ×4 (08:00→21:36)
[2020-05-28 08:34] LABS: Basophils % (Auto) 0.6 % (0.0-1.8); Eosinophils # (Auto) 0.1 K/mm3 (0.0-0.4); Eosinophils % (Auto) 2.5 % (0.0-4.3); Hematocrit 41.8 % (35.5-45.6); Hemoglobin 14.2 gm/dl (11.8-15.2); Lymphocytes # (Auto) 1.8 K/mm3 (1.2-5.4); Lymphocytes % (Auto) 43.5 % (13.4-35.0); Mean Corpuscular HGB Conc 34 % (32-34); Mean Corpuscular Volume 91 fl (84-94); Monocytes # (Auto) 0.4 K/mm3 (0.0-0.8); Monocytes % (Auto) 10.3 % (0.0-7.3); Platelet Count 126 K/mm3 (140-440); Red Blood Count 4.58 M/mm3 (3.65-5.03); Red Cell Distribution Width 14.7 % (13.2-15.2)
[2020-05-28 08:58] LABS: Alanine Aminotransferase 16 units/L (7-56); Albumin 3.5 g/dL (3.9-5); Blood Urea Nitrogen 13 mg/dL (9-20); Calcium 8.8 mg/dL (8.4-10.2); Hemolysis Index 13
[2020-05-28 09:00] LABS: BUN/Creatinine Ratio 19
[2020-05-28 09:24] LABS: Chol/HDL Ratio 2.97 %; HDL Cholesterol 34 mg/dL (40-59); LDL Cholesterol,Direct 61 mg/dL (50-130)
--- NOTE | 2020-05-28 10:34 | Progress Note ---
<MATILDEMAUREENJAYME BECK - Last Filed: 05/28/20 13:46> Assessment and Plan - Patient Problems (1) History of substance abuse Current Visit: Yes Status: Acute Plan to address problem: patient hard to arouse but opens eye with painful stimuli Hx of substance abuse with unresposived Urine toxicology done-f/u with result (2) Altered mental status Current Visit: Yes Status: Acute Qualifiers: Altered mental status type: stupor Qualified Code(s): R40.1 - Stupor Plan to address problem: patient mental status has improved patient alert and oriented time 3 CT of the head done-no acute process Telenuerologist consulted CTA of the neck and head-no acute vessel occulusion Neuro checks Pt/ot and speech consult for swallow study NPO and continue IV hydration Continue antiplatelet with ASA MRI of the brain -result pending Head of Bed 30 Degrees (3) Schizophrenia Current Visit: No Status: Acute Plan to address problem: Supportive care Willresume home anti-psychotic (4) Thrombocytopenia Current Visit: Yes Status: Acute Plan to address problem: ? cause multifactorial-chronic/alcohol use/viral infection Monitor CBC (5) Hypernatremia Current Visit: Yes Status: Acute Plan to address problem: Hypernatremia resolved 142 today continue IV hydration with 1/2 NS Monitor sodium level (6) Hyperglycemia Current Visit: Yes Status: Acute Plan to address problem: Likely dehydration/diabetes monitor blood sugar with SSI [id number] Will discussed with patient lifestyle modification and diabetic diet when patient AMS improves/resolves (7) Hypertension Current Visit: Yes Status: Acute Qualifiers: Hypertension type: essential hypertension Qualified Code(s): I10 - Essent ial (primary) hypertension Plan to address problem: Blood pressure stable Continue Monitor blood pressure Resume home antihypertensive-Lopressor 50 mg BID ECHO -result pending Subjective Date of service: 05/28/20 Principal diagnosis: AMS Interval history: Patient seen today Patient awake-alert and orieted Patient reports he feels better I assisted patient to stand up-bilateral leg weakness noted, but patient has significantly improved from yesterday Consulted PT/OT Discussed with the attending Dr Gaytan and patient nurse patient said patient is tolerating oral feeding. Objective - Constitutional Vitals: Vital Signs - 12hr 05/28/20 05/28/20 00:13 04:09 Temperature 98.0 F 98.0 F Pulse Rate 56 L 56 L Respiratory 18 18 Rate Blood Pressure 163/73 142/67 O2 Sat by Pulse 100 100 Oximetry General appearance: Present: no acute distress, well-nourished - EENT Eyes: PERRL, EOM intact ENT: hearing intact, clear oral mucosa Ears: bilateral: normal - Neck Neck: supple, normal ROM - Respiratory Respiratory effort: normal Respiratory: bilateral: CTA - Breasts Breasts: normal - Cardiovascular Heart rate: 58 Rhythm: regular Heart Sounds: Present: S1 & S2. Absent: gallop, rub Extremities: pulses intact, No edema, normal color, Full ROM, abnormal (bilateral leg weakness. Patient may benefit from home physical therapy) - Gastrointestinal General gastrointestinal: Present: soft, non-tender, non-distended, normal bowel sounds - Genitourinary Male genitourinary: normal - Integumentary Integumentary: clear, warm, dry - Musculoskeletal Musculoskeletal: 1, strength equal bilaterally - Neurologic Neurologic: moves all extremities - Psychiatric Psychiatric: memory intact, appropriate mood/affect, intact judgment & insight - Labs CBC & Chem 7: 05/28/20 08:10 05/28/20 08:10 Labs: Abnormal lab results 05/27/20 05/28/20 05/28/20 Range/Units 22:40 08:10 08:10 WBC (4.5-11.0) K/mm3 Plt Count (140-440) K/mm3 Lymph % (Auto) (13.4-35.0) % [place] % (Auto) (0.0-7.3) % Creatinine 0.7 L (0.8-1.3) mg/dL POC Glucose 378 H (70-105) Hemoglobin A1c 8.6 H (4-6) % Total Protein 5.8 L (6.3-8.2) g/dL Albumin 3.5 L (3.9-5) g/dL HDL Cholesterol 34 L (40-59) mg/dL 05/28/20 Range/Units 08:10 WBC 4.1 L (4.5-11.0) K/mm3 Plt Count 126 L (140-440) K/mm3 Lymph % (Auto) 43.5 H (13.4-35.0) % [place] % (Auto) 10.3 H (0.0-7.3) % Creatinine (0.8-1.3) mg/dL POC Glucose (70-105) Hemoglobin A1c (4-6) % Total Protein (6.3-8.2) g/dL Albumin (3.9-5) g/dL HDL Cholesterol (40-59) mg/dL HEART Score - HEART Score Troponin: Troponin T < 0.010 ng/mL (0.00-0.029) 05/27/20 03:34 <MOON GAYTAN - Last Filed: 05/29/20 09:47> Assessment and Plan I saw and evaluated the patient. I agree with the findings and the plan of care as documented in the Nurse Practitioner's~note, with the following corrections and additions. Acute toxic metabolic encephalopathy Physical debility with generalized weakness - Patient's mental status slightly improved, but still confused about what happened to him before admission. Patient MRI is negative. PT eval pending. Neuro eval pending. Unable to get out from the bed without assistance. We will continue to follow. Possible discharge when cleared by neurology and PT. Objective - Constitutional Vitals: Vital Signs - 12hr 05/28/20 05/28/20 05/29/20 22:00 23:39 02:00 Temperature 98.2 F Pulse Rate 54 L 54 L Respiratory 18 18 Rate Blood Pressure 165/72 O2 Sat by Pulse 100 Oximetry 05/29/20 05/29/20 03:41 08:13 Temperature 97.3 F L 97.7 F Pulse Rate 58 L 58 L Respiratory 18 20 Rate Blood Pressure 170/75 165/72 O2 Sat by Pulse 100 99 Oximetry - Labs CBC & Chem 7: 05/28/20 08:10 05/28/20 08:10 Labs: Abnormal lab results 05/28/20 05/28/20 05/28/20 Range/Units 12:15 16:36 21:02 POC Glucose 201 H 231 H 255 H (70-105) 05/29/20 Range/Units 07:51 POC Glucose 197 H (70-105) HEART Score - HEART Score Troponin: Troponin T < 0.010 ng/mL (0.00-0.029) 05/27/20 03:34
[2020-05-28] MEDS: DIVALPROEX DR 500 MG TAB PO SCH ×2 (10:42→21:36)
[2020-05-28] MEDS: FAMOTIDINE 10 MG TAB PO SCH ×2 (10:42→21:36)
[2020-05-28] MEDS: ASPIRIN 325 MG TAB PO SCH (10:42)
[2020-05-28] MEDS: SENNOSIDES 8.6 MG TAB PO SCH ×2 (10:42→21:36)
--- NOTE | 2020-05-28 16:21 | Magnetic Resonance Report ---
NONENHANCED MR SCAN OF THE BRAIN: INDICATION / CLINICAL INFORMATION: stroke. TECHNIQUE: Multiplanar, multisequence MR images of the brain obtained. COMPARISON: CT scan of the head from May 2020 FINDINGS: BRAIN / INTRACRANIAL CONTENTS: No acute ischemia, acute hemorrhage, mass effect, midline shift. No c hronic infarct or atrophy. Brainstem and cerebellar hemispheres are normal. Lateral ventricles and third ventricle are generous, apart normal limits. Periventricular and deep hemispheric white matter are normal. CRANIOCERVICAL JUNCTION: No significant abnormality. VASCULAR FLOW-VOIDS: No significant abnormality. ORBITS: No significant abnormality of visualized orbits. SINUSES / MASTOIDS: Mucous retention cyst in the left maxillary sinus ADDITIONAL FINDINGS: None. IMPRESSION: 1. No acute/subacute focal parenchymal lesion in the brain. Signer Name: Winnie Laguna MD Signed: 05/28/2020 4:16 PM Workstation Name: [id number]
[2020-05-28] MEDS: ENOXAPARIN 40 MG/0.4 ML INJ SUB-Q SCH (21:37)
[2020-05-29] MEDS: INSULIN REGULAR, HUMAN 100 UNIT/ML 3ML VIAL SUB-Q SCH ×3 (08:00→22:09)
[2020-05-29] MEDS: ASPIRIN 325 MG TAB PO SCH (11:00)
[2020-05-29] MEDS: SENNOSIDES 8.6 MG TAB PO SCH ×2 (13:10→22:11)
[2020-05-29] MEDS: DIVALPROEX DR 500 MG TAB PO SCH ×2 (13:10→22:11)
[2020-05-29] MEDS: FAMOTIDINE 10 MG TAB PO SCH ×2 (13:11→22:12)
[2020-05-29] MEDS: hydrALAZINE 25 MG TAB PO SCH ×2 (13:41→22:11)
[2020-05-29] MEDS: amLODIPine 5 MG TAB PO SCH (13:42)
[2020-05-29] MEDS: ASPIRIN EC 81 MG TAB PO SCH (13:48)
--- NOTE | 2020-05-29 16:22 | Progress Note ---
Assessment and Plan /Acute toxic metabolic encephalopathy patient mental status has improved patient alert and oriented time 3 CT of the head done-no acute process Telenuerologist consulted CTA of the neck and head-no acute vessel occulusion MRI no acute CVA /Physical debility with generalized weakness PT consulted / History of substance abuse Urine toxicology done-negative / Schizophrenia Supportive care consult psych / Thrombocytopenia ? cause multifactorial-chronic/alcohol use/viral infection Monitor CBC / Hypernatremia Hypernatremia resolved continue IV hydration with 1/2 NS Monitor sodium level /DM with Hyperglycemia monitor blood sugar with SSI [id number] Will discussed with patient lifestyle modification and diabetic diet / Hypertension Blood pressure stable Continue Monitor blood pressure Resume home antihypertensive-Lopressor 50 mg BID ECHO -result pending --DVT Px 05/28: Patient's mental status slightly improved, but still confused about what happened to him before admission. Patient MRI is negative. PT eval pending. Neuro eval pending. Unable to get out from the bed without assistance. We will continue to follow. 05/29: mental status improved. s/p PT eval today. psych eval pending. Brief history: This is a 69-year-old F Lebanese male who presented with altered mental status and poor responsiveness. patient has history of schizophrenia and substance use. Family told paramedics that this has happened in the past and they believe that he is using some type of illicit substance. ED work up shows CTA of the neck -negative for acute large vessel occlusion CTA of the Neck/Head-no significant finding WBC 4.7, hemoglobin 12.7, Platelet 133, Sodium 147, Glucose 255 Physical exam General appearance: Present: no acute distress, well-nourished - EENT Eyes: PERRL, EOM intact ENT: hearing intact, clear oral mucosa Ears: bilateral: normal - Neck Neck: supple, normal ROM - Respiratory Respiratory effort: normal Respiratory: bilateral: CTA - Breasts Breasts: normal - Cardiovascular Heart rate: 58 Rhythm: regular Heart Sounds: Present: S1 & S2. Absent: gallop, rub Extremities: pulses intact, No edema, normal color, Full ROM, abnormal (bilateral leg weakness. Patient may benefit from home physical therapy) - Gastrointestinal General gastrointestinal: Present: soft, non-tender, non-distended, normal bowel sounds - Genitourinary Male genitourinary: normal - Integumentary Integumentary: clear, warm, dry - Musculoskeletal Musculoskeletal: 1, strength equal bilaterally - Neurologic Neurologic: moves all extremities - Psychiatric Psychiatric: memory intact, appropriate mood/affect, intact judgment & insight Subjective Date of service: 05/29/20 Principal diagnosis: AMS Interval history: Patient seen today Patient awake-alert and orieted Patient reports he feels better vitals noted Objective - Constitutional Vitals: Vital Signs - 12hr 05/29/20 05/29/20 05/29/20 08:13 11:20 13:41 Temperature 97.7 F 98.9 F Pulse Rate 58 L 56 L 108 H Respiratory 20 20 Rate Blood Pressure 165/72 175/78 O2 Sat by Pulse 99 100 Oximetry 05/29/20 13:42 Temperature Pulse Rate 108 H Respiratory Rate Blood Pressure O2 Sat by Pulse Oximetry - Labs CBC & Chem 7: 05/28/20 08:10 05/28/20 08:10 Labs: Abnormal lab results 05/28/20 05/28/20 05/29/20 Range/Units 16:36 21:02 07:51 POC Glucose 231 H 255 H 197 H (70-105) 05/29/20 Range/Units 12:21 POC Glucose 220 H (70-105) HEART Score - HEART Score Troponin: Troponin T < 0.010 ng/mL (0.00-0.029) 05/27/20 03:34
--- NOTE | 2020-05-29 17:47 | Consultation ---
History of Present Illness Chief complaint: altered mental status History of present illness: TELE NEUROLOGY CONSULT. This is a 69-year-old F [place] male who is presenting with altered mental status and poor responsiveness. patient has history of schizophrenia and substance use. unable to obtain information from patient due to patient very lethargic -only moans and opens eye with painfully stimuli. Per ED note- Family states that around 6 PM yesterday patient went outside to do some yard work. When he returned back to the house he seemed to be stumbling. Family told paramedics that this has happened in the past and they believe that he is using some type of illicit substance. ED work up shows CTA of the neck -negative for acute large vessel occlusion CTA of the Neck/Head-no significant finding WBC 4.7, hemoglobin 12.7, Platelet 133, Sodium 147, Glucose 255 Past History Past Medical History: diabetes, hypertension Social history: other (hx of substance use) Family history: no significant family history Medications and Allergies Allergies Allergy/AdvReac Type Severity Reaction Status Date / Time No Known Allergies Allergy Unverified 05/19/18 03:32 Home Medications Medication Instructions Recorded Confirmed Last Taken Type Paliperidone Palmitate [Invega 234 mg IM QMONTH 07/03/18 05/27/20 06/13/18 History Sustenna] traZODone [Desyrel] 2 tab PO QHS PRN 07/03/18 05/27/20 07/02/18 History Aspirin [Adult Aspirin] 81 mg PO DAILY 05/27/20 05/27/20 Unknown History Atorvastatin [Lipitor] 40 mg PO QHS 05/27/20 05/27/20 Unknown History Cetirizine HCl [ZyrTEC 10mg cap] 10 mg PO DAILY 05/27/20 05/27/20 Unknown History Divalproex [Jose LEE] 500 mg PO BID 05/27/20 05/27/20 Unknown History Gabapentin 300 mg PO HS 05/27/20 05/27/20 Unknown History Insulin Detemir [Levemir Flextouch] 22 unit SQ HS 05/27/20 05/27/20 Unknown History Meloxicam [Mobic] 7.5 mg PO QDAY 05/27/20 05/27/20 Unknown History OLANZapine [Zyprexa] 50 mg PO HS 05/27/20 05/27/20 Unknown History Synjardy Xr 25-1,000 mg Tablet 25 mg PO DAILY 05/27/20 05/27/20 Unknown History glyBURIDE [Diabeta] 10 mg PO BID 05/27/20 05/27/20 Unknown History Past History Past Medical History: diabetes, hypertension Social history: other (hx of substance use) Family history: no significant family history Medications and Allergies Allergies Allergy/AdvReac Type Severity Reaction Status Date / Time No Known Allergies Allergy Unverified 05/19/18 03:32 Home Medications Medication Instructions Recorded Confirmed Last Taken Type Paliperidone Palmitate [Invega 234 mg IM QMONTH 07/03/18 05/27/20 06/13/18 History Sustenna] traZODone [Desyrel] 2 tab PO QHS PRN 07/03/18 05/27/20 07/02/18 History Aspirin [Adult Aspirin] 81 mg PO DAILY 05/27/20 05/27/20 Unknown History Atorvastatin [Lipitor] 40 mg PO QHS 05/27/20 05/27/20 Unknown History Cetirizine HCl [ZyrTEC 10mg cap] 10 mg PO DAILY 05/27/20 05/27/[address] [DepaKOTE DR] 500 mg PO BID 05/27/20 05/27/20 Unknown History Gabapentin 300 mg PO HS 05/27/20 05/27/20 Unknown History Insulin Detemir [Levemir Flextouch] 22 unit SQ 05/27/20 05/27/20 Unknown H istory Meloxicam [Mobic] 7.5 mg PO QDAY 05/27/20 05/27/20 Unknown History OLANZapine [Zyprexa] 50 mg PO HS 05/27/20 05/27/20 Unknown History Synjardy Xr 25-1,000 mg Tablet 25 mg PO DAILY 05/27/20 05/27/20 Unknown History glyBURIDE [Diabeta] 10 mg PO BID 05/27/20 05/27/20 Unknown History Active Meds: Active Medications Acetaminophen (Tylenol) 650 mg PO Q4H PRN PRN Reason: Pain MILD(1-3)/Fever >100.5/NAYAK Amlodipine Besylate (Amlodipine) 5 mg PO QDAY BENJAMÍN Last Admin: 05/29/20 13:42 Dose: 5 mg Documented by: Aspirin (Halfprin Ec) 81 mg PO DAILY [facility] Last Admin: 05/29/20 13:48 Dose: Not Given Documented by: Atorvastatin Calcium (Lipitor) 40 mg PO QHS [facility] Bisacodyl (Dulcolax) 10 mg VA QDAY PRN PRN Reason: Constipation Divalproex Sodium (Depakote Dr) 500 mg PO BID [facility] Last Admin: 05/29/20 13:10 Dose: 500 mg Documented by: Enoxaparin Sodium (Enoxaparin) 40 mg SUB-Q QDAY@2200 [facility] Last Admin: 05/28/20 21:37 Dose: 40 mg Documented by: Famotidine (Pepcid) 10 mg PO BID [facility] Last Admin: 05/29/20 13:11 Dose: 10 mg Documented by: Hydralazine HCl (Apresoline) 25 mg PO Q8HR [facility] Last Admin: 05/29/20 13:41 Dose: 25 mg Documented by: Sodium Chloride (Nacl 0.45% 1000 Ml) 1,000 mls @ 125 mls/hr IV DIRECT [facility] Last Admin: 05/28/20 06:19 Dose: 125 mls/hr Documented by: Insulin Human Regular (Humulin R) 0 unit SUB-Q ACHS [facility]; Protocol Last Admin: 05/29/20 13:00 Dose: 2 unit Documented by: Labetalol HCl (Labetalol) 10 mg IV Q4H PRN PRN Reason: Hypertension Magnesium Hydroxide (Milk Of Magnesia) 30 ml PO Q4H PRN PRN Reason: Constipation Metoclopramide HCl (Reglan) 10 mg PO Q6H PRN PRN Reason: Nausea And Vomiting Ondansetron HCl (Zofran) 4 mg IV Q8H PRN PRN Reason: Nausea And Vomiting Oxycodone/Acetaminophen (Percocet 5/325) 1 tab PO Q6H PRN PRN Reason: Pain, Moderate (4-6) Promethazine HCl (Phenergan) 25 mg VA Q6H PRN PRN Reason: Nausea And Vomiting Senna (Senokot) 8.6 mg PO Q12HR [facility] Last Admin: 05/29/20 13:10 Dose: 8.6 mg Documented by: Sodium Chloride (Sodium Chloride Flush Syringe 10 Ml) 10 ml IV PRN PRN PRN Reason: LINE FLUSH Review of Systems All systems: negative (altered mental status) Physical Examination - Vital Signs Vital Signs: Vital Signs Temp Pulse Resp BP Pulse Ox 98.2 F 70 13 133/69 100 05/27/20 03:35 05/27/20 03:35 05/27/20 03:35 05/27/20 03:35 05/27/20 03:35 - Physical Exam Narrative exam: Neurology examination: alert awake. following commands well. lang- nl. cn- eomi- no facial asymmetry. m- moves limbs well. Results - Laboratory Findings CBC and BMP: 05/28/20 08:10 05/28/20 08:10 Abnormal Lab Findings: Abnormal Labs 05/27/20 05/27/20 05/27/20 03:34 03:34 03:46 WBC Plt Count 133 L Lymph % (Auto) [place] % (Auto) 11.7 H Sodium 147 H BUN 25 H Creatinine Glucose 255 H POC Glucose 232 H Hemoglobin A1c Total Protein Albumin HDL Cholesterol Ur Specific [place] 05/27/20 05/27/20 05/28/20 04:22 22:40 08:10 WBC Plt Count Lymph % (Auto) [place] % (Auto) Sodium BUN Creatinine Glucose POC Glucose 378 H Hemoglobin A1c 8.6 H Total Protein Albumin HDL Cholesterol Ur Specific [place] 1.052 H 05/28/20 05/28/20 05/28/20 08:10 08:10 12:15 WBC 4.1 L Plt Count 126 L Lymph % (Auto) 43.5 H [place] % (Auto) 10.3 H Sodium BUN Creatinine 0.7 L Glucose POC Glucose 201 H Hemoglobin A1c Total Protein 5.8 L Albumin 3.5 L HDL Cholesterol 34 L Ur Specific [place] 05/28/20 05/28/20 05/29/20 16:36 21:02 07:51 WBC Plt Count Lymph % (Auto) [place] % (Auto) Sodium BUN Creatinine Glucose POC Glucose 231 H 255 H 197 H Hemoglobin A1c Total Protein Albumin HDL Cholesterol Ur Specific [place] 05/29/20 05/29/20 12:21 16:42 WBC Plt Count Lymph % (Auto) [place] % (Auto) Sodium BUN Creatinine Glucose POC Glucose 220 H 273 H Hemoglobin A1c Total Protein Albumin HDL Cholesterol Ur Specific [place] Assessment and Plan altered mental status- likely metabolic in origin resolved. cta head and neck - nl mri brain- no acute lesion seen. plan- continue treatment for metabolic etiology.
[2020-05-29] MEDS: ENOXAPARIN 40 MG/0.4 ML INJ SUB-Q SCH (22:12)
[2020-05-30] MEDS: hydrALAZINE 25 MG TAB PO SCH ×3 (07:20→21:37)
[2020-05-30] MEDS: INSULIN REGULAR, HUMAN 100 UNIT/ML 3ML VIAL SUB-Q SCH ×4 (08:00→21:37)
--- NOTE | 2020-05-30 11:32 | Consultation ---
History of Present Illness - Reason for Consult Consult date: 05/30/20 Reason for consult: MHE Requesting physician: MOON GAYTAN - Chief Complaint Chief complaint: altered mental status - History of Present Psychiatric Illness Per ED Provider: Patient is a 69-year-old F [place] male who is presenting with altered mental status and poor responsiveness. Family states that around 6 PM yesterday he went outside to do some yard work. When he returned back to the house he seemed to be stumbling. Family told paramedics that this will occur sometimes and they believe that he is using some type of illicit substance. Patient then was seen several hours later in a stuporous state slumped over. Family was unable to arouse him and they called paramedics. Paramedics were only able to elicit response from the patient with pain. Vital signs appeared to be within normal limits. The only thing the patient is able to say is stop that when I did a sternal rub when he arrived. He did try to grab my hands with both arms. PSYCH HPI Patient is a 69 year old , and disabled Male with past psychiatric history of schizophrenia and past medical history of CAD and DM who presented to the ER via EMS with complaints of lethargy. Patient says he knows he is in the hospital in the state of [place], knows the correct year, month and was able to time correctly on the wall clock. Patient says that he was brought here by EMS when his niece who currently stays at home with him observed him having difficulty climbing up on bed and falling. Patient says he his but his is currently in pen[facility]ent[facility]. He admits to history of schizophrenia, says he used to hear things before but no longer hears anything and he feels just find. Patient describes a good and stable mood, denies being depressed or excessively nervous. Patient eats and sleeps well. Patient denies panic attacks, recurrent nightmares or flashbacks. Patient denies symptoms suggestive of OCD or PTSD. Patient denies hallucinations, paranoia, thought interference and no features suggestive of hypomania or rehan. He completely denies suicidal or homicidal thoughts. PAST PSYCHIATRIC HISTORY Diagnoses: Schizphrenia Suicide attempts or Self-harm behavior: None reported Prior psychiatric hospitalizations: Yes Substance Abuse history: None reported Previous psychiatric medications tried: None reported Outpatient treatment: unknown PAST MEDICAL HISTORY: CAD and DM Family Psychiatric History: None reported or documented SOCIAL HISTORY Marital Status: Living Arrangements: at home with niece Employment Status: disabled Access to guns/weapons: None reported Education: High school History of Abuse: None reported Legal History: None reported REVIEW OF SYSTEMS Constitutional: Negative for weight loss ENT: Negative for stridor Respiratory: Negative for cough or hemoptysis All other systems reviewed and are negative MENTAL STATUS EXAMINATION General Appearance and Behavior: Age appropriate, poor/fair/good hygiene, wearing appropriate clothes, lying in bed, good/poor eye contact, coope rative/uncooperative polite/irritable with questioning. Cooperation: Participating/engaged, Withdrawn, Isolative, Threatening, Cooperative, Hostile and Guarded Psychomotor Behavior: psychomotor retardation Mood: Good Affect and affective range: congruent with mood Thought Process: logical Thought Content: Within reality Speech: Normal volume, Regular rate and rhythm Intellectual Functioning: Average Suicidal Ideation: Denies SI Homicidal Ideation: Denies HI Impulse Control: Unimpaired Insight and Judgment: Normal insight and judgment Memory: Short term memory impaired Attention: Normal Orientation: Alert, oriented RECOMMENDATIONS Recommend pt F/U with outpt psychiatrist before continuing his psychiatric meds for adjustment, a downward titration in this case. MEDICATIONS: Risks, benefits and alternatives of medications discussed with the patient, questions answered and consent obtained from patient. PSYCHOTHERAPY: Supportive psychotherapy provided MEDICAL: Per primary team DELIRIUM PRECAUTIONS: Please re-orient patient frequently, keep lights on during the day, and minimize benzodiazepines and opiates as these medications could worsen patient's confusion. SHIP'S OFFICER: DISPOSITION: Per primary team; no indication for acute inpatient psychiatric hospitalization at this time LEGAL STATUS: Voluntary FOLLOW-UP: Will sign off Thank you for the consult. Please contact with any questions and/or concerns. Medications and Allergies Allergies Allergy/AdvReac Type Severity Reaction Status Date / Time No Known Allergies Allergy Unverified 05/19/18 03:32 Home Medications Medication Instructions Recorded Confirmed Last Taken Type Paliperidone Palmitate [Invega 234 mg IM QMONTH 07/03/18 05/27/20 06/13/18 History Sustenna] traZODone [Desyrel] 2 tab PO QHS PRN 07/03/18 05/27/20 07/02/18 History Aspirin [Adult Aspirin] 81 mg PO DAILY 05/27/20 05/27/20 Unknown History Atorvastatin [Lipitor] 40 mg PO QHS 05/27/20 05/27/20 Unknown History Cetirizine HCl [ZyrTEC 10mg cap] 10 mg PO DAILY 05/27/20 05/27/[address] [Jose PENALOZA] 500 mg PO BID 05/27/20 05/27/20 Unknown History Gabapentin 300 mg PO HS 05/27/20 05/27/20 Unknown History Insulin Detemir [Levemir Flextouch] 22 unit SQ 05/27/20 05/27/20 Unknown History Meloxicam [Mobic] 7.5 mg PO QDAY 05/27/20 05/27/20 Unknown History OLANZapine [Zyprexa] 50 mg PO HS 05/27/20 05/27/20 Unknown History Synjardy Xr 25-1,000 mg Tablet 25 mg PO DAILY 05/27/20 05/27/20 Unknown History glyBURIDE [Diabeta] 10 mg PO BID 05/27/20 05/27/20 Unknown History Active Meds: Active Medications Acetaminophen (Tylenol) 650 mg PO Q4H PRN PRN Reason: Pain MILD(1-3)/Fever >100.5/NAYAK Amlodipine Besylate (Amlodipine) 5 mg PO QDAY [facility] Last Admin: 05/29/20 13:42 Dose: 5 mg Documented by: Aspirin (Halfprin Ec) 81 mg PO DAILY [facility] Last Admin: 05/29/20 13:48 Dose: Not Given Documented by: Atorvastatin Calcium (Lipitor) 40 mg PO QHS [facility] Last Admin: 05/29/20 22:12 Dose: 40 mg Documented by: Bisacodyl (Dulcolax) 10 mg [place] QDAY PRN PRN Reason: Constipation Divalproex Sodium (Jose Penaloza) 500 mg PO BID [facility] Last Admin: 05/29/20 22:11 Dose: 500 mg Documented by: Enoxaparin Sodium (Enoxaparin) 40 mg SUB-Q QDAY@2200 [facility] Last Admin: 05/29/20 22:12 Dose: 40 mg Documented by: Famotidine (Pepcid) 10 mg PO BID [facility] Last Admin: 05/29/20 22:12 Dose: 10 mg Documented by: Hydralazine HCl (Apresoline) 25 mg PO Q8HR [facility] Last Admin: 05/30/20 07:20 Dose: 25 mg Documented by: Sodium Chloride (Nacl 0.45% 1000 Ml) 1,000 mls @ 125 mls/hr IV DIRECT BENJAMÍN Last Admin: 05/28/20 06:19 Dose: 125 mls/hr Documented by: Insulin Human Regular (Humulin R) 0 unit SUB-Q ACHS [facility]; Protocol Last Admin: 05/29/20 22:09 Dose: 2 unit Documented by: Labetalol HCl (Labetalol) 10 mg IV Q4H PRN PRN Reason: Hypertension Magnesium Hydroxide (Milk Of Magnesia) 30 ml PO Q4H PRN PRN Reason: Constipation Metoclopramide HCl (Reglan) 10 mg PO Q6H PRN PRN Reason: Nausea And Vomiting Ondansetron HCl (Zofran) 4 mg IV Q8H PRN PRN Reason: Nausea And Vomiting Oxycodone/Acetaminophen (Percocet 5/325) 1 tab PO Q6H PRN PRN Reason: Pain, Moderate (4-6) Promethazine HCl (Phenergan) 25 mg [place] Q6H PRN PRN Reason: Nausea And Vomiting Senna (Senokot) 8.6 mg PO Q12HR [facility] Last Admin: 05/29/20 22:11 Dose: 8.6 mg Documented by: Sodium Chloride (Sodium Chloride Flush Syringe 10 Ml) 10 ml IV PRN PRN PRN Reason: LINE FLUSH Mental Status Exam - Vital signs Last Vital Signs Temp 97.9 F 05/30/20 07:51 Pulse 59 L 05/30/20 09:12 Resp 20 05/30/20 07:51 BP 169/68 05/30/20 07:51 Pulse Ox 100 05/30/20 07:51 Results Result Diagrams: 05/28/20 08:10 05/28/20 08:10 Abnormal lab results 05/29/20 05/29/20 05/29/20 Range/Units 12:21 16:42 20:58 POC Glucose 220 H 273 H 249 H (70-105) All other labs normal.
[2020-05-30] MEDS: SENNOSIDES 8.6 MG TAB PO SCH ×2 (11:40→21:36)
[2020-05-30] MEDS: DIVALPROEX DR 500 MG TAB PO SCH ×2 (11:40→21:37)
[2020-05-30] MEDS: ASPIRIN EC 81 MG TAB PO SCH (11:40)
[2020-05-30] MEDS: amLODIPine 5 MG TAB PO SCH (11:41)
[2020-05-30] MEDS: FAMOTIDINE 10 MG TAB PO SCH ×2 (11:41→21:37)
--- NOTE | 2020-05-30 15:06 | Progress Note ---
Assessment and Plan Assessment and plan: Acute toxic metabolic encephalopathy patient mental status has improved patient alert and oriented time 3 CT of the head done-no acute process Telenuerologist consulted CTA of the neck and head-no acute vessel occulusion MRI no acute CVA /Physical debility with generalized weakness PT consulted / History of substance abuse Urine toxicology done-negative / Schizophrenia Supportive care consult psych / Thrombocytopenia ? cause multifactorial-chronic/alcohol use/viral infection Monitor CBC / Hypernatremia Hypernatremia resolved continue IV hydration with 1/2 NS Monitor sodium level /DM with Hyperglycemia monitor blood sugar with SSI [id number] Will discussed with patient lifestyle modification and diabetic diet / Hypertension Blood pressure stable Continue Monitor blood pressure Resume home antihypertensive-Lopressor 50 mg BID ECHO -result pending Hospitalist Physical - Constitutional Vitals: Temp Pulse Resp BP Pulse Ox 98.3 F 67 20 152/75 99 05/30/20 11:21 05/30/20 11:21 05/30/20 11:21 05/30/20 11:21 05/30/20 11:21 General appearance: Present: no acute distress, well-nourished HEART Score - HEART Score Troponin: Troponin T < 0.010 ng/mL (0.00-0.029) 05/27/20 03:34 Results - Labs CBC & Chem 7: 05/28/20 08:10 05/28/20 08:10 Labs: Laboratory Last Values WBC 4.1 K/mm3 (4.5-11.0) L 05/28/20 08:10 RBC 4.58 M/mm3 (3.65-5.03) 05/28/20 08:10 Hgb 14.2 gm/dl (11.8-15.2) 05/28/20 08:10 Hct 41.8 % (35.5-45.6) 05/28/20 08:10 MCV 91 fl (84-94) 05/28/20 08:10 MCH 31 pg (28-32) 05/28/20 08:10 MCHC 34 % (32-34) 05/28/20 08:10 RDW 14.7 % (13.2-15.2) 05/28/20 08:10 Plt Count 126 K/mm3 (140-440) L 05/28/20 08:10 Lymph % (Auto) 43.5 % (13.4-35.0) H 05/28/20 08:10 [place] % (Auto) 10.3 % (0.0-7.3) H 05/28/20 08:10 Eos % (Auto) 2.5 % (0.0-4.3) 05/28/20 08:10 Baso % (Auto) 0.6 % (0.0-1.8) 05/28/20 08:10 Lymph # 1.8 K/mm3 (1.2-5.4) 05/28/20 08:10 [place] # 0.4 K/mm3 (0.0-0.8) 05/28/20 08:10 Eos # 0.1 K/mm3 (0.0-0.4) 05/28/20 08:10 Baso # 0.0 K/mm3 (0.0-0.1) 05/28/20 08:10 Seg Neutrophils % 43.1 % (40.0-70.0) 05/28/20 08:10 Seg Neutrophils # 1.8 K/mm3 (1.8-7.7) 05/28/20 08:10 PT 14.3 Sec. (12.2-14.9) 05/27/20 03:34 INR 1.09 (0.87-1.13) 05/27/20 03:34 APTT 26.7 Sec. (24.2-36.6) 05/27/20 03:34 Thrombin Time 16.4 Sec. (15.1-19.6) 05/27/20 03:34 Sodium 142 mmol/L (137-145) 05/28/20 08:10 Potassium 4.1 mmol/L (3.6-5.0) 05/28/20 08:10 Chloride 105.2 mmol/L (98-107) 05/28/20 08:10 Carbon Dioxide 28 mmol/L (22-30) 05/28/20 08:10 Anion Gap 13 mmol/L 05/28/20 08:10 BUN 13 mg/dL (9-20) 05/28/20 08:10 Creatinine 0.7 mg/dL (0.8-1.3) L 05/28/20 08:10 Estimated GFR > 60 ml/min 05/28/20 08:10 BUN/Creatinine Ratio 19 % 05/28/20 08:10 Glucose 82 mg/dL (75-100) 05/28/20 08:10 POC Glucose 342 (70-105) H 05/30/20 11:37 Hemoglobin A1c 8.6 % (4-6) H 05/28/20 08:10 Calcium 8.8 mg/dL (8.4-10.2) 05/28/20 08:10 Total Bilirubin 0.40 mg/dL (0.1-1.2) 05/28/20 08:10 AST 19 units/L (5-40) 05/28/20 08:10 ALT 16 units/L (7-56) 05/28/20 08:10 Alkaline Phosphatase 43 units/L (35-129) 05/28/20 08:10 Total Creatine Kinase 87 units/L (55-170) 05/27/20 03:34 CK-MB (CK-2) 2.0 ng/mL (0.0-4.0) 05/27/20 03:34 CK-MB (CK-2) Rel Index 2.2 (0-4) 05/27/20 03:34 Troponin T < 0.010 ng/mL (0.00-0.029) 05/27/20 03:34 Total Protein 5.8 g/dL (6.3-8.2) L 05/28/20 08:10 Albumin 3.5 g/dL (3.9-5) L 05/28/20 08:10 Albumin/Globulin Ratio 1.5 % 05/28/20 08:10 Triglycerides 44 mg/dL (2-149) 05/28/20 08:10 Cholesterol 101 mg/dL (50-199) 05/28/20 08:10 LDL Cholesterol Direct 61 mg/dL (50-130) 05/28/20 08:10 HDL Cholesterol 34 mg/dL (40-59) L 05/28/20 08:10 Cholesterol/HDL Ratio 2.97 % 05/28/20 08:10 Urine Color Yellow (Yellow) 05/27/20 04:22 Urine Turbidity Clear (Clear) 05/27/20 04:22 Urine pH 5.0 (5.0-7.0) 05/27/20 04:22 Ur Specific [place] 1.052 (1.003-1.030) H 05/27/20 04:22 Urine Protein 30 mg/dl mg/dL (Negative) 05/27/20 04:22 Urine Glucose (UA) >=500 mg/dL (Negative) 05/27/20 04:22 Urine Ketones 20 mg/dL (Negative) 05/27/20 04:22 Urine Blood Sm (Negative) 05/27/20 04:22 Urine Nitrite Neg (Negative) 05/27/20 04:22 Urine Bilirubin Neg (Negative) 05/27/20 04:22 Urine Urobilinogen < 2.0 mg/dL (<2.0) 05/27/20 04:22 Ur Leukocyte Esterase Neg (Negative) 05/27/20 04:22 Urine WBC (Auto) 5.0 /HPF (0.0-6.0) 05/27/20 04:22 Urine RBC (Auto) 8.0 /HPF (0.0-6.0) 05/27/20 04:22 Urine Mucus Few /HPF 05/27/20 04:22 Urine Opiates Screen Presumptive negative 05/27/20 04:22 Urine Methadone Screen Presumptive negative 05/27/20 04:22 Ur Barbiturates Screen Presumptive negative 05/27/20 04:22 Ur Phencyclidine Scrn Presumptive negative 05/27/20 04:22 Ur Amphetamines Screen Presumptive negative 05/27/20 04:22 U Benzodiazepines Scrn Presumptive negative 05/27/20 04:22 Urine Cocaine Screen Presumptive negative 05/27/20 04:22 U Marijuana (THC) Screen Presumptive negative 05/27/20 04:22 Drugs of Abuse Note Disclamer 05/27/20 04:22 Plasma/Serum Alcohol < 0.01 % (0-0.07) 05/27/20 03:34 - Diagnostic Impressions Diagnostic Impressions: Echocardiogram 05/27/20 15:29 Transthoracic Echocardiogram Indication: Stroke BP: 142/67 HR: 57 Conclusions *Global left ventricular systolic function is normal. *The estimated ejection fraction is 50-55%. *Abnormal left ventricular diastolic filling is observed, consistent with impaired relaxation. *There is no pericardial effusion. *Normal buble study without evidence of intracardiac or intrapulmonary communication. Findings Left Ventricle: The left ventricular chamber size is normal. Global left ventricular systolic function is normal. The estimated ejection fraction is 50-55%. Abnormal left ventricular diastolic filling is observed, consistent with impaired relaxation. Left Atrium: The left atrial chamber size is normal. Right Ventricle: The right ventricular cavity size is normal. The right ventricular global systolic function is mildly reduced. Right Atrium: The right atrial cavity size is normal. No atrial septal defected is demonstrated by agitated saline contrast. Aortic Valve: Mild aortic leaflet calcification is visualized. There is no evidence of aortic regurgitation. Mitral Valve: The mitral valve leaflets are mildly thickened. There is no evidence of mitral regurgitation. Tricuspid Valve: The tricuspid valve leaflets are normal. There is trace tricuspid regurgitation. The right ventricular systolic pressure is calculated at 14 mmHg. Pulmonic Valve: The pulmonic valve appears normal. There is no evidence of pulmonic regurgitation. Pericardium: There is no pericardial effusion. Aorta: The aorta appears normal. Venous: The inferior vena cava appears normal. Contrast: Intravenous agitated saline contrast was used to assess intracardiac shunting. Measurements Chambers 2D Name Value Normal Range IVSd (2D) 0.96 cm (0.6 - 1.1) LVPWd (2D) 0.92 cm (0.6 - 1.1) LVIDd (2D) 4.72 cm (3.7 - 5.6) LVIDs (2D) 3.07 cm (2 - 3.8) LV FS (2D) 35 % - EF Teichholz (2D) 64.24 % - Ao root diameter (2D) 2.64 cm (2 - 3.7) Volumes/Mass Name Value Normal Range LA ESV SP 4CH (A/L) 33.7 ml - LA ESV SP 2CH (A/L) 22.06 ml - LA ESV BP (A/L) 30.85 ml - LA ESV BP (A/L) index 14.83 ml/m2 - LA ESV SP 4CH (MOD) 29.59 ml - LA ESV SP 2CH (MOD) 20.82 ml - LA ESV BP (MOD) 28.01 ml - LA ESV BP (MOD) index 13.47 ml/m2 - Diastolic/Systolic Function Name Value Normal Range MV E-wave Vmax 0.57 m/sec - MV deceleration time 390.96 msec - MV A-wave Vmax 0.76 m/sec - MV E:A ratio 0.75 ratio - Aortic Valve Name Value Normal Range AV Vmax 1.26 m/sec - AV VTI 28.46 cm - AV peak gradient 6.35 mmHg - AV mean gradient 3.64 mmHg - LVOT diameter 2.02 cm - LVOT Vmax 1.03 m/sec - LVOT VTI 24.12 cm - LVOT peak gradient 4.21 mmHg - LVOT mean gradient 2.42 mmHg - SV LVOT 77.58 ml - FLOYD (continuity Vmax) 2.62 cm2 - FLOYD (continuity VTI) 2.73 cm2 - Tricuspid Valve Name Value Normal Range TR Vmax 1.65 m/sec - TR peak gradient 11 mmHg - RAP 3 mmHg - RVSP 14 mmHg - Pulmonic Valve/Qp:Qs Name Value Normal Range PV Vmax 1.06 m/sec - PV peak gradient 4.53 mmHg - PV acceleration time 140.82 msec - Gardner/IV: Voiding Method Toilet IV Catheter Type [Left Peripheral IV Antecubital] Active Medications - Current Medications Current Medications: Generic Name Dose Route Start Last Admin Trade Name Freq PRN Reason Stop Dose Admin Acetaminophen 650 mg 05/27/20 15:27 Tylenol PO Q4H PRN Pain MILD(1-3)/Fever >100.5/NAYAK Amlodipine Besylate 5 mg 05/29/20 13:00 05/30/20 11:41 Amlodipine PO 5 mg QDAY BENJAMÍN Administration Aspirin 81 mg 05/29/20 13:00 05/30/20 11:40 Halfprin Ec PO 81 mg DAILY BENJAMÍN Administration Atorvastatin Calcium 40 mg 05/29/20 22:00 05/29/20 22:12 Lipitor PO 40 mg QHS BENJAMÍN Administration Bisacodyl 10 mg 05/27/20 15:28 Dulcolax [place] QDAY PRN Constipation Divalproex Sodium 500 mg 05/27/20 22:00 05/30/20 11:[address] PO 500 mg BID BENJAMÍN Administration Enoxaparin Sodium 40 mg 05/27/20 22:00 05/29/20 22:12 Enoxaparin SUB-Q 40 mg QDAY@2200 BENJAMÍN Administration Famotidine 10 mg 05/27/20 22:00 05/30/20 11:41 Pepcid PO 10 mg BID BENJAMÍN Administration Hydralazine HCl 25 mg 05/29/20 12:57 05/30/20 07:20 Apresoline PO 25 mg Q8HR BENJAMÍN Administration Sodium Chloride 1,000 mls @ 125 mls/hr 05/27/20 17:00 05/28/20 06:19 Nacl 0.45% 1000 Ml IV 125 mls/hr DIRECT BENJAMÍN Administration Insulin Human Regular 0 unit 05/27/20 22:00 05/30/20 08:00 Humulin R SUB-Q Not Given ACHS BENJAMÍN Protocol Labetalol HCl 10 mg 05/27/20 15:27 Labetalol IV Q4H PRN Hypertension Magnesium Hydroxide 30 ml 05/27/20 15:28 Milk Of Magnesia PO Q4H PRN Constipation Metoclopramide HCl 10 mg 05/27/20 15:28 Reglan PO Q6H PRN Nausea And Vomiting Ondansetron HCl 4 mg 05/27/20 15:28 Zofran IV Q8H PRN Nausea And Vomiting Oxycodone/Acetaminophen 1 tab 05/27/20 15:27 Percocet 5/325 PO Q6H PRN Pain, Moderate (4-6) Promethazine HCl 25 mg 05/27/20 15:28 Phenergan [place] Q6H PRN Nausea And Vomiting Senna 8.6 mg 05/27/20 22:00 05/30/20 11:40 Senokot PO 8.6 mg Q12HR BENJAMÍN Administration Sodium Chloride 10 ml 05/27/20 15:28 Sodium Chloride Flush Syringe 10 Ml IV PRN PRN LINE FLUSH Nutrition/Malnutrition Assess - Dietary Evaluation Nutrition/Malnutrition Findings: Nutrition Notes Start: 05/28/20 08:21 Freq: Status: Active Protocol: Document 05/30/20 14:21 LM (Rec: 05/30/20 14:23 LM [id number]) Nutrition Notes Initial or Follow up Brief Note Current Diagnosis Diabetes,Hypertension Other Pertinent Diagnosis AMS, AMI Current Diet Cardiac Labs/Tests BG 249 A1C 8.6 Weight Status Overweight Subjective/Other Information Pt was not in room at time of visit. per chart pt ate 100% of breakfast. Nutrition Intervention Follow-Up By: 05/31/20 Additional Comments Follow for diet education
--- NOTE | 2020-05-30 15:30 | Progress Note ---
Assessment and Plan altered mental status- likely metabolic in origin resolved. cta head and neck - nl mri brain- no acute lesion seen. plan- continue treatment for metabolic etiology. signing off. Subjective Principal diagnosis: AMS Interval history: MUCH BETTER NOW Objective - Exam Narrative Exam: Neurology examination: alert awake. following commands well. lang- nl. cn- eomi- no facial asymmetry. m- WALKING TODAY. - Vital Sign Vital Signs - 12hr 05/30/20 05/30/20 05/30/20 03:35 06:00 07:20 Temperature 98.1 F Pulse Rate 65 65 65 Respiratory 18 Rate Blood Pressure 140/74 140/74 O2 Sat by Pulse 99 Oximetry 05/30/20 05/30/20 05/30/20 07:51 09:12 11:21 Temperature 97.9 F 98.3 F Pulse Rate 60 59 L 67 Respiratory 20 20 Rate Blood Pressure 169/68 152/75 O2 Sat by Pulse 100 99 Oximetry - Laboratory Findings CBC and BMP: 05/28/20 08:10 05/28/20 08:10 Abnormal Lab Findings: Abnormal Labs 05/27/20 05/27/20 05/27/20 03:34 03:34 03:46 WBC Plt Count 133 L Lymph % (Auto) [place] % (Auto) 11.7 H Sodium 147 H BUN 25 H Creatinine Glucose 255 H POC Glucose 232 H Hemoglobin A1c Total Protein Albumin HDL Cholesterol Ur Specific [place] 05/27/20 05/27/20 05/28/20 04:22 22:40 08:10 WBC Plt Count Lymph % (Auto) [place] % (Auto) Sodium BUN Creatinine Glucose POC Glucose 378 H Hemoglobin A1c 8.6 H Total Protein Albumin HDL Cholesterol Ur Specific [place] 1.052 H 05/28/20 05/28/20 05/28/20 08:10 08:10 12:15 WBC 4.1 L Plt Count 126 L Lymph % (Auto) 43.5 H [place] % (Auto) 10.3 H Sodium BUN Creatinine 0.7 L Glucose POC Glucose 201 H Hemoglobin A1c Total Protein 5.8 L Albumin 3.5 L HDL Cholesterol 34 L Ur Specific [place] 05/28/20 05/28/20 05/29/20 16:36 21:02 07:51 WBC Plt Count Lymph % (Auto) [place] % (Auto) Sodium BUN Creatinine Glucose POC Glucose 231 H 255 H 197 H Hemoglobin A1c Total Protein Albumin HDL Cholesterol Ur Specific [place] 05/29/20 05/29/20 05/29/20 12:21 16:42 20:58 WBC Plt Count Lymph % (Auto) [place] % (Auto) Sodium BUN Creatinine Glucose POC Glucose 220 H 273 H 249 H Hemoglobin A1c Total Protein Albumin HDL Cholesterol Ur Specific [place] 05/30/20 11:37 WBC Plt Count Lymph % (Auto) [place] % (Auto) Sodium BUN Creatinine Glucose POC Glucose 342 H Hemoglobin A1c Total Protein Albumin HDL Cholesterol Ur Specific [place]
[2020-05-30] MEDS: ENOXAPARIN 40 MG/0.4 ML INJ SUB-Q SCH (21:37)
[2020-05-31] MEDS: hydrALAZINE 25 MG TAB PO SCH ×3 (05:27→22:50)
[2020-05-31] MEDS: INSULIN REGULAR, HUMAN 100 UNIT/ML 3ML VIAL SUB-Q SCH ×5 (09:43→23:15)
[2020-05-31] MEDS: FAMOTIDINE 10 MG TAB PO SCH ×2 (09:43→22:50)
[2020-05-31] MEDS: DIVALPROEX DR 500 MG TAB PO SCH ×2 (09:43→22:50)
[2020-05-31] MEDS: ASPIRIN EC 81 MG TAB PO SCH (09:43)
[2020-05-31] MEDS: amLODIPine 5 MG TAB PO SCH (09:44)
[2020-05-31] MEDS: SENNOSIDES 8.6 MG TAB PO SCH ×2 (09:44→22:50)
[2020-05-31] MEDS: ENOXAPARIN 40 MG/0.4 ML INJ SUB-Q SCH (22:50)
--- NOTE | 2020-05-31 23:10 | Progress Note ---
Assessment and Plan Assessment and plan: Acute toxic metabolic encephalopathy patient mental status has improved patient alert and oriented time 3 CT of the head done-no acute process Telenuerologist consulted CTA of the neck and head-no acute vessel occulusion MRI no acute CVA /Physical debility with generalized weakness PT consulted / History of substance abuse Urine toxicology done-negative / Schizophrenia Supportive care consult psych / Thrombocytopenia ? cause multifactorial-chronic/alcohol use/viral infection Monitor CBC / Hypernatremia Hypernatremia resolved continue IV hydration with 1/2 NS Monitor sodium level /DM with Hyperglycemia monitor blood sugar with SSI [id number] Will discussed with patient lifestyle modification and diabetic diet / Hypertension Blood pressure stable Continue Monitor blood pressure Resume home antihypertensive-Lopressor 50 mg BID ECHO -result pending History Interval history: Seen and examined the patient medical records reviewed Hospitalist Physical - Constitutional Vitals: Temp Pulse Resp BP Pulse Ox 98.3 F 76 20 121/61 97 05/31/20 20:56 05/31/20 22:50 05/31/20 20:56 05/31/20 22:50 05/31/20 20:56 General appearance: Present: no acute distress, well-nourished HEART Score - HEART Score Troponin: Troponin T < 0.010 ng/mL (0.00-0.029) 05/27/20 03:34 Results - Labs CBC & Chem 7: 05/28/20 08:10 05/28/20 08:10 Labs: Laboratory Last Values WBC 4.1 K/mm3 (4.5-11.0) L 05/28/20 08:10 RBC 4.58 M/mm3 (3.65-5.03) 05/28/20 08:10 Hgb 14.2 gm/dl (11.8-15.2) 05/28/20 08:10 Hct 41.8 % (35.5-45.6) 05/28/20 08:10 MCV 91 fl (84-94) 05/28/20 08:10 MCH 31 pg (28-32) 05/28/20 08:10 MCHC 34 % (32-34) 05/28/20 08:10 RDW 14.7 % (13.2-15.2) 05/28/20 08:10 Plt Count 126 K/mm3 (140-440) L 05/28/20 08:10 Lymph % (Auto) 43.5 % (13.4-35.0) H 05/28/20 08:10 [place] % (Auto) 10.3 % (0.0-7.3) H 05/28/20 08:10 Eos % (Auto) 2.5 % (0.0-4.3) 05/28/20 08:10 Baso % (Auto) 0.6 % (0.0-1.8) 05/28/20 08:10 Lymph # 1.8 K/mm3 (1.2-5.4) 05/28/20 08:10 [place] # 0.4 K/mm3 (0.0-0.8) 05/28/20 08:10 Eos # 0.1 K/mm3 (0.0-0.4) 05/28/20 08:10 Baso # 0.0 K/mm3 (0.0-0.1) 05/28/20 08:10 Seg Neutrophils % 43.1 % (40.0-70.0) 05/28/20 08:10 Seg Neutrophils # 1.8 K/mm3 (1.8-7.7) 05/28/20 08:10 PT 14.3 Sec. (12.2-14.9) 05/27/20 03:34 INR 1.09 (0.87-1.13) 05/27/20 03:34 APTT 26.7 Sec. (24.2-36.6) 05/27/20 03:34 Thrombin Time 16.4 Sec. (15.1-19.6) 05/27/20 03:34 Sodium 142 mmol/L (137-145) 05/28/20 08:10 Potassium 4.1 mmol/L (3.6-5.0) 05/28/20 08:10 Chloride 105.2 mmol/L (98-107) 05/28/20 08:10 Carbon Dioxide 28 mmol/L (22-30) 05/28/20 08:10 Anion Gap 13 mmol/L 05/28/20 08:10 BUN 13 mg/dL (9-20) 05/28/20 08:10 Creatinine 0.7 mg/dL (0.8-1.3) L 05/28/20 08:10 Estimated GFR > 60 ml/min 05/28/20 08:10 BUN/Creatinine Ratio 19 % 05/28/20 08:10 Glucose 82 mg/dL (75-100) 05/28/20 08:10 POC Glucose 252 (70-105) H 05/31/20 22:56 Hemoglobin A1c 8.6 % (4-6) H 05/28/20 08:10 Calcium 8.8 mg/dL (8.4-10.2) 05/28/20 08:10 Total Bilirubin 0.40 mg/dL (0.1-1.2) 05/28/20 08:10 AST 19 units/L (5-40) 05/28/20 08:10 ALT 16 units/L (7-56) 05/28/20 08:10 Alkaline Phosphatase 43 units/L (35-129) 05/28/20 08:10 Total Creatine Kinase 87 units/L (55-170) 05/27/20 03:34 CK-MB (CK-2) 2.0 ng/mL (0.0-4.0) 05/27/20 03:34 CK-MB (CK-2) Rel Index 2.2 (0-4) 05/27/20 03:34 Troponin T < 0.010 ng/mL (0.00-0.029) 05/27/20 03:34 Total Protein 5.8 g/dL (6.3-8.2) L 05/28/20 08:10 Albumin 3.5 g/dL (3.9-5) L 05/28/20 08:10 Albumin/Globulin Ratio 1.5 % 05/28/20 08:10 Triglycerides 44 mg/dL (2-149) 05/28/20 08:10 Cholesterol 101 mg/dL (50-199) 05/28/20 08:10 LDL Cholesterol Direct 61 mg/dL (50-130) 05/28/20 08:10 HDL Cholesterol 34 mg/dL (40-59) L 05/28/20 08:10 Cholesterol/HDL Ratio 2.97 % 05/28/20 08:10 Urine Color Yellow (Yellow) 05/27/20 04:22 Urine Turbidity Clear (Clear) 05/27/20 04:22 Urine pH 5.0 (5.0-7.0) 05/27/20 04:22 Ur Specific [place] 1.052 (1.003-1.030) H 05/27/20 04:22 Urine Protein 30 mg/dl mg/dL (Negative) 05/27/20 04:22 Urine Glucose (UA) >=500 mg/dL (Negative) 05/27/20 04:22 Urine Ketones 20 mg/dL (Negative) 05/27/20 04:22 Urine Blood Sm (Negative) 05/27/20 04:22 Urine Nitrite Neg (Negative) 05/27/20 04:22 Urine Bilirubin Neg (Negative) 05/27/20 04:22 Urine Urobilinogen < 2.0 mg/dL (<2.0) 05/27/20 04:22 Ur Leukocyte Esterase Neg (Negative) 05/27/20 04:22 Urine WBC (Auto) 5.0 /HPF (0.0-6.0) 05/27/20 04:22 Urine RBC (Auto) 8.0 /HPF (0.0-6.0) 05/27/20 04:22 Urine Mucus Few /HPF 05/27/20 04:22 Urine Opiates Screen Presumptive negative 05/27/20 04:22 Urine Methadone Screen Presumptive negative 05/27/20 04:22 Ur Barbiturates Screen Presumptive negative 05/27/20 04:22 Ur Phencyclidine Scrn Presumptive negative 05/27/20 04:22 Ur Amphetamines Screen Presumptive negative 05/27/20 04:22 U Benzodiazepines Scrn Presumptive negative 05/27/20 04:22 Urine Cocaine Screen Presumptive negative 05/27/20 04:22 U Marijuana (THC) Screen Presumptive negative 05/27/20 04:22 Drugs of Abuse Note Disclamer 05/27/20 04:22 Plasma/Serum Alcohol < 0.01 % (0-0.07) 05/27/20 03:34 - Diagnostic Impressions Diagnostic Impressions: Echocardiogram 05/27/20 15:29 Transthoracic Echocardiogram Indication: Stroke BP: 142/67 HR: 57 Conclusions *Global left ventricular systolic function is normal. *The estimated ejection fraction is 50-55%. *Abnormal left ventricular diastolic filling is observed, consistent with impaired relaxation. *There is no pericardial effusion. *Normal buble study without evidence of intracardiac or intrapulmonary communication. Findings Left Ventricle: The left ventricular chamber size is normal. Global left ventricular systolic function is normal. The estimated ejection fraction is 50-55%. Abnormal left ventricular diastolic filling is observed, consistent with impaired relaxation. Left Atrium: The left atrial chamber size is normal. Right Ventricle: The right ventricular cavity size is normal. The right ventricular global systolic function is mildly reduced. Right Atrium: The right atrial cavity size is normal. No atrial septal defected is demonstrated by agitated saline contrast. Aortic Valve: Mild aortic leaflet calcification is visualized. There is no evidence of aortic regurgitation. Mitral Valve: The mitral valve leaflets are mildly thickened. There is no evidence of mitral regurgitation. Tricuspid Valve: The tricuspid valve leaflets are normal. There is trace tricuspid regurgitation. The right ventricular systolic pressure is calculated at 14 mmHg. Pulmonic Valve: The pulmonic valve appears normal. There is no evidence of pulmonic regurgitation. Pericardium: There is no pericardial effusion. Aorta: The aorta appears normal. Venous: The inferior vena cava appears normal. Contrast: Intravenous agitated saline contrast was used to assess intracardiac shunting. Measurements Chambers 2D Name Value Normal Range IVSd (2D) 0.96 cm (0.6 - 1.1) LVPWd (2D) 0.92 cm (0.6 - 1.1) LVIDd (2D) 4.72 cm (3.7 - 5.6) LVIDs (2D) 3.07 cm (2 - 3.8) LV FS (2D) 35 % - EF Teichholz (2D) 64.24 % - Ao root diameter (2D) 2.64 cm (2 - 3.7) Volumes/Mass Name Value Normal Range LA ESV SP 4CH (A/L) 33.7 ml - LA ESV SP 2CH (A/L) 22.06 ml - LA ESV BP (A/L) 30.85 ml - LA ESV BP (A/L) index 14.83 ml/m2 - LA ESV SP 4CH (MOD) 29.59 ml - LA ESV SP 2CH (MOD) 20.82 ml - LA ESV BP (MOD) 28.01 ml - LA ESV BP (MOD) index 13.47 ml/m2 - Diastolic/Systolic Function Name Value Normal Range MV E-wave Vmax 0.57 m/sec - MV deceleration time 390.96 msec - MV A-wave Vmax 0.76 m/sec - MV E:A ratio 0.75 ratio - Aortic Valve Name Value Normal Range AV Vmax 1.26 m/sec - AV VTI 28.46 cm - AV peak gradient 6.35 mmHg - AV mean gradient 3.64 mmHg - LVOT diameter 2.02 cm - LVOT Vmax 1.03 m/sec - LVOT VTI 24.12 cm - LVOT peak gradient 4.21 mmHg - LVOT mean gradient 2.42 mmHg - SV LVOT 77.58 ml - FLOYD (continuity Vmax) 2.62 cm2 - FLOYD (continuity VTI) 2.73 cm2 - Tricuspid Valve Name Value Normal Range TR Vmax 1.65 m/sec - TR peak gradient 11 mmHg - RAP 3 mmHg - RVSP 14 mmHg - Pulmonic Valve/Qp:Qs Name Value Normal Range PV Vmax 1.06 m/sec - PV peak gradient 4.53 mmHg - PV acceleration time 140.82 msec - Gardner/IV: Voiding Method Condom Catheter IV Catheter Type [Left Peripheral IV Antecubital] Active Medications - Current Medications Current Medications: Generic Name Dose Route Start Last Admin Trade Name Freq PRN Reason Stop Dose Admin Acetaminophen 650 mg 05/27/20 15:27 Tylenol PO Q4H PRN Pain MILD(1-3)/Fever >100.5/NAYAK Amlodipine Besylate 5 mg 05/29/20 13:00 05/31/20 09:44 Amlodipine PO 5 mg QDAY BENJAMÍN Administration Aspirin 81 mg 05/29/20 13:00 05/31/20 09:43 Halfprin Ec PO 81 mg DAILY BENJAMÍN Administration Atorvastatin Calcium 40 mg 05/29/20 22:00 05/31/20 22:50 Lipitor PO 40 mg QHS BENJAMÍN Administration Bisacodyl 10 mg 05/27/20 15:28 Dulcolax MO QDAY PRN Constipation Divalproex Sodium 500 mg 05/27/20 22:00 05/31/20 22:[address] PO 500 mg BID BENJAMÍN Administration Enoxaparin Sodium 40 mg 05/27/20 22:00 05/31/20 22:50 Enoxaparin SUB-Q 40 mg QDAY@2200 BENJAMÍN Administration Famotidine 10 mg 05/27/20 22:00 05/31/20 22:50 Pepcid PO 10 mg BID BENJAMÍN Administration Hydralazine HCl 25 mg 05/29/20 12:57 05/31/20 22:50 Apresoline PO 25 mg Q8HR BENJAMÍN Administration Sodium Chloride 1,000 mls @ 125 mls/hr 05/27/20 17:00 05/28/20 06:19 Nacl 0.45% 1000 Ml IV 125 mls/hr DIRECT BENJAMÍN Administration Insulin Human Regular 0 unit 05/27/20 22:00 05/31/20 17:42 Humulin R SUB-Q 4 unit ACHS BENJAMÍN Administration Protocol Labetalol HCl 10 mg 05/27/20 15:27 Labetalol IV Q4H PRN Hypertension Magnesium Hydroxide 30 ml 05/27/20 15:28 Milk Of Magnesia PO Q4H PRN Constipation Metoclopramide HCl 10 mg 05/27/20 15:28 Reglan PO Q6H PRN Nausea And Vomiting Ondansetron HCl 4 mg 05/27/20 15:28 Zofran IV Q8H PRN Nausea And Vomiting Oxycodone/Acetaminophen 1 tab 05/27/20 15:27 Percocet 5/325 PO Q6H PRN Pain, Moderate (4-6) Promethazine HCl 25 mg 05/27/20 15:28 Phenergan MO Q6H PRN Nausea And Vomiting Senna 8.6 mg 05/27/20 22:00 05/31/20 22:50 Senokot PO 8.6 mg Q12HR BENJAMÍN Administration Sodium Chloride 10 ml 05/27/20 15:28 Sodium Chloride Flush Syringe 10 Ml IV PRN PRN LINE FLUSH Nutrition/Malnutrition Assess - Dietary Evaluation Nutrition/Malnutrition Findings: Nutrition Notes Start: 05/28/20 08:21 Freq: Status: Active Protocol: Document 05/31/20 14:30 LM (Rec: 05/31/20 14:41 LM [id number]) Nutrition Notes Need for Assessment generated from: Education Initial or Follow up Brief Note Current Diagnosis Diabetes,Hypertension Other Pertinent Diagnosis AMS, AMI Current Diet Cardiac Labs/Tests A1C 8.6 POC glu 259 Weight Status Overweight Subjective/Other Information Pt is eating well. Provided DM diet education to pt as A1C is elevated. #1 Nutrition Diagnosis Food and nutrition-related knowledge deficit Etiology No prior DM diet education As Evidenced by Signs and Symptoms A1C 8.6, POC glu 259 Nutrition Intervention Teaching Recipient Patient Learning Readiness Fair Teaching Methods Discussion,Handout Response to Teaching Verbalize understanding, Reinforcement needed Education Handouts Provided Carbohydrate Counting for People with DM Barriers to Learning Cognitive/Verbal RD phone number provided Yes Patient aware of follow up options Yes Revisit per MD consult or patient Sign Off request:
[2020-06-01] MEDS: hydrALAZINE 25 MG TAB PO SCH ×3 (06:33→21:18)
[2020-06-01] MEDS: FAMOTIDINE 10 MG TAB PO SCH ×2 (09:13→21:18)
[2020-06-01] MEDS: DIVALPROEX DR 500 MG TAB PO SCH ×2 (09:13→21:18)
[2020-06-01] MEDS: ASPIRIN EC 81 MG TAB PO SCH (09:13)
[2020-06-01] MEDS: INSULIN REGULAR, HUMAN 100 UNIT/ML 3ML VIAL SUB-Q SCH ×4 (09:13→22:27)
[2020-06-01] MEDS: amLODIPine 5 MG TAB PO SCH (09:13)
[2020-06-01] MEDS: SENNOSIDES 8.6 MG TAB PO SCH ×2 (09:13→21:18)
--- NOTE | 2020-06-01 16:10 | Discharge Summary ---
Providers - Providers Date of Admission: 05/28/20 14:45 Date of discharge: 06/01/20 Attending physician: YOVANI BAINS 05/27/20 15:28 Consult to Case Management [CONS] Routine Services Needed at Discharge: Other Notified:: case management Consult to Dietitian/Nutrition [CONS] Routine Physician Instructions: Reason For Exam: Reason for Consult: Nutrition Recommendations Reason for Consult: Diet education Occupational Therapy Evaluate and Treat [CONS] Routine Comment: Reason For Exam: Neuro deficits Physical Therapy Evaluation and Treat [CONS] Routine Comment: Reason For Exam: Neuro deficits 05/29/20 09:57 Consult to Mental Health [CONS] Routine Reason For Exam: schizophrenia with AMS Consult to Physician [CONS] Routine Comment: Consulting Provider: DILAN MELCHOR Physician Instructions: Reason For Exam: stroke like symptom Primary care physician: SECURITY INTELLIGENCE ANALYST Hospitalization Condition: Stable Hospital course: --=Acute toxic metabolic encephalopathy patient mental status has improved patient alert and oriented time 3 CT of the head done-no acute process Telenuerologist consulted CTA of the neck and head-no acute vessel occulusion MRI no acute abnormality, --Acute CVA ruled out --Physical debility with generalized weakness PT consulted -- History of substance abuse Urine toxicology done-negative --Schizophrenia Supportive care consult psych -- Thrombocytopenia ? cause multifactorial-chronic/alcohol use/viral infection Monitor CBC --Hypernatremia Hypernatremia resolved continue IV hydration with 1/2 NS Monitor sodium level --DM with Hyperglycemia monitor blood sugar with SSI [id number] Will discussed with patient lifestyle modification and diabetic diet --Hypertension Blood pressure stable Continue Monitor blood pressure Resume home antihypertensive-Lopressor 50 mg BID ECHO -result pending Disposition: [id number] HOME [facility] Time spent for discharge: 32 min Core Measure Documentation - Palliative Care Palliative Care/ Comfort Measures: Not Applicable - Core Measures Any of the following diagnoses?: none Exam - Constitutional Vitals: Temp Pulse Resp BP Pulse Ox 97.8 F 92 H 18 145/78 98 06/01/20 11:58 06/01/20 11:58 06/01/20 11:58 06/01/20 11:58 06/01/20 11:58 General appearance: Present: no acute distress, well-nourished - EENT Eyes: Present: PERRL, EOM intact - Neck Neck: Present: supple, normal ROM - Respiratory Respiratory effort: normal Respiratory: bilateral: diminished, negative: rales, rhonchi, wheezing - Cardiovascular Rhythm: regular Heart Sounds: Present: S1 & S2 - Extremities Extremities: no ischemia, No edema - Abdominal General gastrointestinal: Present: soft, non-tender, non-distended, normal bowel sounds - Integumentary Integumentary: Present: clear, warm - Musculoskeletal Musculoskeletal: strength equal bilaterally, generalized weakness - Psychiatric Psychiatric: appropriate mood/affect, cooperative - Neurologic Neurologic: moves all extremities Plan Activity: advance as tolerated, fall precautions Diet: diabetic Special Instructions: physical therapy Additional Instructions: Smoking cessation advised. Advised to quit recreational drug use. If you have worsening symptoms contact MD or go to emergency room. Advised to follow with private neurologist in 2 weeks or as needed. Advised to hold gabapentin, meloxicam, olanzapine, Invega,Synjardy, trazodone. Check with primary care physician, private psychiatrist before resuming them. Follow up with: PRIMARY MD SOUMYA [Primary Care Provider] - 7 Days AMANDA SHEA MD [Staff Physician] - 7 Days EL FORDE MD [Staff Physician] - 7 Days
[2020-06-01 17:33] VITALS: BP 145/64
[2020-06-01] MEDS: ENOXAPARIN 40 MG/0.4 ML INJ SUB-Q SCH (21:18)
== END 2020-06-01 22:53 | disposition home health service (06) | DRG 92 ==
LOC: ED 03:14 → 4A 05:51 → OBSVTOIN 05-28 14:45
PROVIDERS: ADMIT Internal Medicine Geriatric Medicine; ATTEND Internal Medicine
DX: G92 Toxic encephalopathy (principal); E87.0 Hyperosmolality and hypernatremia; E11.65 Type 2 diabetes mellitus with hyperglycemia; I10 Essential (primary) hypertension; F20.9 Schizophrenia, unspecified; D69.6 Thrombocytopenia, unspecified
CPT/HCPCS: 36415; 70450; 70496; 70498; 70551; 80048; 80053; 80061; 80307; 80320; 81001; 82550; 82553; 82962; 83036; 84484; 85025; 85610; 85670; 85730; 93005; 93306; 94760; 99406; G0378; A9270-GY; G0480; J1650; J1815; J2310; J7030; Q9967

== ENCOUNTER 2020-06-02 18:53 | Inpatient (IN) | payer MEDICAID, MEDICARE ==
[2020-06-02] MEDS ORDERED: SODIUM CHLORIDE 0.9% 500 ML 500 ML IV ONE (19:34)
[2020-06-02] MEDS ORDERED: INSULIN REGULAR, HUMAN 100 UNIT/ML 3ML VIAL IV ONE (19:37)
--- NOTE | 2020-06-02 19:46 | Emergency Department Report ---
ED Altered Mental Status HPI - General Stated Complaint: AMS PUI?: No Time Seen by Provider: 06/02/20 19:33 Source: EMS, old records reviewed Mode of arrival: Stretcher Limitations: Altered Mental Status - History of Present Illness Initial Comments: Mr. Barr is a 69 yo male with hx of schizophrenia, diabetes mellitus, NM s/p PCI/cardiac stents who presents with altered mental status. Patient was discharged yesterday from this hospital after admission for altered mental status. This morning patient was conversant and ambulatory. He is now only responding to noxious stimuli. According to EMS, BG [id number] According to discharge summary in EMR, patient was evaluated for possible CVA. CVA ruled out. Patient was treated for hypernatremia, thrombocytopenia, and hyperglycemia. Dx: acute metabolic toxic encephalopathy. Upon discharge, psychotropic medications were held. MD Complaint: altered mental status, decreased responsiveness -: Gradual, This evening Severity: severe Consistency of Symptoms: constant Context: change in medication, history of similar presen - Related Data Home Medications Medication Instructions Recorded Confirmed Last Taken Paliperidone Palmitate [Invega 234 mg IM QMONTH 07/03/18 05/27/20 06/13/18 Sustenna] traZODone [Desyrel] 2 tab PO QHS PRN 07/03/18 05/27/20 07/02/18 Aspirin [Adult Aspirin] 81 mg PO DAILY 05/27/20 05/27/20 Unknown Atorvastatin [Lipitor] 40 mg PO QHS 05/27/20 05/27/20 Unknown Divalproex [Luis Penaloza] 500 mg PO BID 05/27/20 05/27/20 Unknown Gabapentin 300 mg PO HS 05/27/20 05/27/20 Unknown Insulin Detemir [Levemir Flextouch] 22 unit SQ HS 05/27/20 05/27/20 Unknown Meloxicam [Mobic] 7.5 mg PO QDAY 05/27/20 05/27/20 Unknown OLANZapine [Zyprexa] 50 mg PO HS 05/27/20 05/27/20 Unknown Synjardy Xr 25-1,000 mg Tablet 25 mg PO DAILY 05/27/20 05/27/20 Unknown glyBURIDE [Diabeta] 10 mg PO BID 05/27/20 05/27/20 Unknown Previous Rx's Medication Instructions Recorded Last Taken Type hydrALAZINE [Apresoline TAB] 25 mg PO Q8HR #90 tablet 06/01/20 Unknown Rx Allergies Allergy/AdvReac Type Severity Reaction Status Date / Time No Known Allergies Allergy Unverified 05/19/18 03:32 ED Review of Systems ROS: Stated complaint: AMS Other details as noted in HPI Comment: Unobtainable due to pts medical conditions (altered mental status) ED Past Medical Hx - Past Medical History Previous Medical History?: Yes Hx Hypertension: Yes Hx Heart Attack/AMI: Yes Hx Diabetes: Yes Hx Psychiatric Treatment: Yes Additional medical history: SCHIZOPHRENIA - Surgical History Hx Open Heart Surgery: Yes - Social History Smoking Status: Current Every Day Smoker - Medications Home Medications: Home Medications Medication Instructions Recorded Confirmed Last Taken Type Paliperidone Palmitate [Invega 234 mg IM QMONTH 07/03/18 05/27/20 06/13/18 History Sustenna] traZODone [Desyrel] 2 tab PO QHS PRN 07/03/18 05/27/20 07/02/18 History Aspirin [Adult Aspirin] 81 mg PO DAILY 05/27/20 05/27/20 Unknown History Atorvastatin [Lipitor] 40 mg PO QHS 05/27/20 05/27/[address] [Luis Penaloza] 500 mg PO BID 05/27/20 05/27/20 Unknown History Gabapentin 300 mg PO HS 05/27/20 05/27/20 Unknown History Insulin Detemir [Levemir Flextouch] 22 unit SQ HS 05/27/20 05/27/20 Unknown History Meloxicam [Mobic] 7.5 mg PO QDAY 05/27/20 05/27/20 Unknown History OLANZapine [Zyprexa] 50 mg PO HS 05/27/20 05/27/20 Unknown History Synjardy Xr 25-1,000 mg Tablet 25 mg PO DAILY 05/27/20 05/27/20 Unknown History glyBURIDE [Diabeta] 10 mg PO BID 05/27/20 05/27/20 Unknown History hydrALAZINE [Apresoline TAB] 25 mg PO Q8HR #90 tablet 06/01/20 Unknown Rx ED Physical Exam - General Limitations: Altered Mental Status General appearance: lethargic, other (localizes painful stimuli, normal respiratory pattern) - Head Head exam: Present: atraumatic, normocephalic - Eye Eye exam: Present: normal appearance, PERRL. Absent: scleral icterus, conjunctival injection - ENT ENT exam: Present: mucous membranes dry - Neck Neck exam: Present: normal inspection, full ROM. Absent: tenderness, meningismus - Respiratory Respiratory exam: Present: normal lung sounds bilaterally. Absent: respiratory distress, wheezes, rales, rhonchi - Cardiovascular Cardiovascular Exam: Present: regular rate, normal rhythm, normal heart sounds, other (sternotomy scar). Absent: systolic murmur, diastolic murmur, rubs, gallop - GI/Abdominal GI/Abdominal exam: Present: soft, normal bowel sounds. Absent: distended, tenderness, guarding, rebound - Rectal Rectal exam: Present: deferred - Extremities Exam Extremities exam: Present: normal inspection - Neurological Exam Neurological exam: Present: altered - Psychiatric Psychiatric exam: Present: flat affect - Skin Skin exam: Present: warm, dry, intact, normal color. Absent: rash ED Course Vital Signs 06/02/20 19:59 Temperature 95.7 F L Pulse Rate 72 Respiratory 16 Rate Blood Pressure 147/70 O2 Sat by Pulse 98 Oximetry - Reevaluation(s) Reevaluation #1: 06/02/20 19:59 Shortly upon my evaluation, nurse informed me that patient is now alert and talkative. He told the nurse that the "devil was in my head". Patient states that he is not in any distress or discomfort. He was able to tell me his name and the year. - Lab Data Result diagrams: 06/02/20 19:59 06/02/20 19:59 Lab Results 06/02/20 06/02/20 06/02/20 Range/Units 19:59 19:59 19:59 WBC 4.2 L (4.5-11.0) K/mm3 RBC 4.41 (3.65-5.03) M/mm3 Hgb 13.6 (11.8-15.2) gm/dl Hct 40.5 (35.5-45.6) % MCV 92 (84-94) fl MCH 31 (28-32) pg MCHC 34 (32-34) % RDW 15.5 H (13.2-15.2) % Plt Count 131 L (140-440) K/mm3 Lymph % (Auto) 28.2 (13.4-35.0) % Rapides % (Auto) 14.0 H (0.0-7.3) % Eos % (Auto) 1.0 (0.0-4.3) % Baso % (Auto) 0.5 (0.0-1.8) % Lymph # 1.2 (1.2-5.4) K/mm3 Rapides # 0.6 (0.0-0.8) K/mm3 Eos # 0.0 (0.0-0.4) K/mm3 Baso # 0.0 (0.0-0.1) K/mm3 Seg Neutrophils % 56.3 (40.0-70.0) % Seg Neutrophils # 2.4 (1.8-7.7) K/mm3 PT 13.7 (12.2-14.9) Sec. INR 1.04 (0.87-1.13) APTT 26.2 (24.2-36.6) Sec. Sodium 139 (137-145) mmol/L Potassium 4.6 (3.6-5.0) mmol/L Chloride 100.7 (98-107) mmol/L Carbon Dioxide 26 (22-30) mmol/L Anion Gap 17 mmol/L BUN 23 H (9-20) mg/dL Creatinine 1.1 (0.8-1.3) mg/dL Estimated GFR > 60 ml/min BUN/Creatinine Ratio 21 % Glucose 464 H (75-100) mg/dL Lactic Acid (0.7-2.0) mmol/L Calcium 9.5 (8.4-10.2) mg/dL Total Bilirubin 0.20 (0.1-1.2) mg/dL AST 21 (5-40) units/L ALT 28 (7-56) units/L Alkaline Phosphatase 56 (35-129) units/L Troponin T < 0.010 (0.00-0.029) ng/mL Total Protein 6.9 (6.3-8.2) g/dL Albumin 4.0 (3.9-5) g/dL Albumin/Globulin Ratio 1.4 % TSH (0.270-4.200) mlU/mL Salicylates (2.8-20.0) mg/dL Acetaminophen (10.0-30.0) ug/mL Valproic Acid (50-100) ug/mL Plasma/Serum Alcohol (0-0.07) % 06/02/20 06/02/20 06/02/20 Range/Units 19:59 19:59 19:59 WBC (4.5-11.0) K/mm3 RBC (3.65-5.03) M/mm3 Hgb (11.8-15.2) gm/dl Hct (35.5-45.6) % MCV (84-94) fl MCH (28-32) pg MCHC (32-34) % RDW (13.2-15.2) % Plt Count (140-440) K/mm3 Lymph % (Auto) (13.4-35.0) % Rapides % (Auto) (0.0-7.3) % Eos % (Auto) (0.0-4.3) % Baso % (Auto) (0.0-1.8) % Lymph # (1.2-5.4) K/mm3 Rapides # (0.0-0.8) K/mm3 Eos # (0.0-0.4) K/mm3 Baso # (0.0-0.1) K/mm3 Seg Neutrophils % (40.0-70.0) % Seg Neutrophils # (1.8-7.7) K/mm3 PT (12.2-14.9) Sec. INR (0.87-1.13) APTT (24.2-36.6) Sec. Sodium (137-145) mmol/L Potassium (3.6-5.0) mmol/L Chloride (98-107) mmol/L Carbon Dioxide (22-30) mmol/L Anion Gap mmol/L BUN (9-20) mg/dL Creatinine (0.8-1.3) mg/dL Estimated GFR ml/min BUN/Creatinine Ratio % Glucose (75-100) mg/dL Lactic Acid 2.30 H* (0.7-2.0) mmol/L Calcium (8.4-10.2) mg/dL Total Bilirubin (0.1-1.2) mg/dL AST (5-40) units/L ALT (7-56) units/L Alkaline Phosphatase (35-129) units/L Troponin T (0.00-0.029) ng/mL Total Protein (6.3-8.2) g/dL Albumin (3.9-5) g/dL Albumin/Globulin Ratio % TSH 5.020 H (0.270-4.200) mlU/mL Salicylates < 0.3 L (2.8-20.0) mg/dL Acetaminophen (10.0-30.0) ug/mL Valproic Acid 73.2 (50-100) ug/mL Plasma/Serum Alcohol (0-0.07) % 06/02/20 06/02/20 Range/Units 19:59 19:59 WBC (4.5-11.0) K/mm3 RBC (3.65-5.03) M/mm3 Hgb (11.8-15.2) gm/dl Hct (35.5-45.6) % MCV (84-94) fl MCH (28-32) pg MCHC (32-34) % RDW (13.2-15.2) % Plt Count (140-440) K/mm3 Lymph % (Auto) (13.4-35.0) % Rapides % (Auto) (0.0-7.3) % Eos % (Auto) (0.0-4.3) % Baso % (Auto) (0.0-1.8) % Lymph # (1.2-5.4) K/mm3 [place]ides # (0.0-0.8) K/mm3 Eos # (0.0-0.4) K/mm3 Baso # (0.0-0.1) K/mm3 Seg Neutrophils % (40.0-70.0) % Seg Neutrophils # (1.8-7.7) K/mm3 PT (12.2-14.9) Sec. INR (0.87-1.13) APTT (24.2-36.6) Sec. Sodium (137-145) mmol/L Potassium (3.6-5.0) mmol/L Chloride (98-107) mmol/L Carbon Dioxide (22-30) mmol/L Anion Gap mmol/L BUN (9-20) mg/dL Creatinine (0.8-1.3) mg/dL Estimated GFR ml/min BUN/Creatinine Ratio % Glucose (75-100) mg/dL Lactic Acid (0.7-2.0) mmol/L Calcium (8.4-10.2) mg/dL Total Bilirubin (0.1-1.2) mg/dL AST (5-40) units/L ALT (7-56) units/L Alkaline Phosphatase (35-129) units/L Troponin T (0.00-0.029) ng/mL Total Protein (6.3-8.2) g/dL Albumin (3.9-5) g/dL Albumin/Globulin Ratio % TSH (0.270-4.200) mlU/mL Salicylates (2.8-20.0) mg/dL Acetaminophen 5.0 L (10.0-30.0) ug/mL Valproic Acid (50-100) ug/mL Plasma/Serum Alcohol < 0.01 (0-0.07) % - Radiology Data Radiology results: report reviewed CT head: No evidence of acute intracranial hemorrhage or significant change from 05/27/2020 AP portable chest: No acute findings - Medical Decision Making Mr. Barr presents with altered mental status. I suspect both a metabolic and psychiatric component to his presentation. It appears that he is prone to volume contraction, hyperglycemia. Due to sudden change in mental status with reported delusion, acute psychosis is a concern. 1. acute metabolic toxic encephalopathy due to hyperglycemia, volume contraction, treatment initiated in the ED with IVF and IV insulin 2. acute psychosis, MH consult admitted to hospitalist service in fair condition Work-up notable for hyperglycemia, Critical Care Time: Yes Critical care attestation.: If time is entered above; I have spent that time in minutes in the direct care of this critically ill patient, excluding procedure time. ED Disposition Clinical Impression: Altered mental status, Hyperglycemia, Acute metabolic encephalopathy, Schizophrenia, Acute psychosis Disposition: OP ADMIT IP TO THIS HOSP Is pt being admited?: Yes Does the pt Need Aspirin: No Condition: Stable
--- NOTE | 2020-06-02 20:22 | XRay Report ---
CHEST 1 VIEW INDICATION / CLINICAL INFORMATION: altered mental status recent hospitalization. COMPARISON: None available. FINDINGS: SUPPORT DEVICES: None. HEART / MEDIASTINUM: Sternotomy wires and mediastinal clips. Cardiac silhouette is within normal limi ts for size. LUNGS / PLEURA: No significant pulmonary or pleural abnormality. No pneumothorax. ADDITIONAL FINDINGS: No significant additional findings. IMPRESSION: 1. No acute findings. Signer Name: Tang Hart MD Signed: 06/02/2020 8:18 PM Workstation Name: [email or web address] [id number]
[2020-06-02 20:31] LABS: Basophils % (Auto) 0.5 % (0.0-1.8); Hematocrit 40.5 % (35.5-45.6); Hemoglobin 13.6 gm/dl (11.8-15.2); Lymphocytes # (Auto) 1.2 K/mm3 (1.2-5.4); Lymphocytes % (Auto) 28.2 % (13.4-35.0); Mean Corpuscular HGB Conc 34 % (32-34); Mean Corpuscular Volume 92 fl (84-94); Monocytes # (Auto) 0.6 K/mm3 (0.0-0.8); Platelet Count 131 K/mm3 (140-440); Red Blood Count 4.41 M/mm3 (3.65-5.03); Red Cell Distribution Width 15.5 % (13.2-15.2)
[2020-06-02 20:45] LABS: INR 1.04 (0.87-1.13)
[2020-06-02 20:46] LABS: Partial Thromboplastin Time 26.2 Sec. (24.2-36.6)
--- NOTE | 2020-06-02 20:59 | Cat Scan Report ---
CT head/brain wo con INDICATION / CLINICAL INFORMATION: 69 years Male; altered mental status hx of CVA. TECHNIQUE: Routine CT head without contrast. All CT scans at this location are performed using CT dos e reduction for ALARA by means of automated exposure control. COMPARISON: The study is compared to the previous CT of 05/27/2020. FINDINGS: BRAIN / INTRACRANIAL CONTENTS: There appears be mild cerebral white matter disease most consistent wi th mild microvascular angiopathy. The findings correlate with previous CT. There is continued mild ce rebral atrophy and associated prominence of the ventricular system. There is also a persistent calcif ication along the tentorium, particularly on the right, and falx which is unchanged. There is no tatianna r CT evidence of acute intracranial hemorrhage or significant mass effect. ORBITS: No significant abnormality of visualized orbits. SINUSES / MASTOIDS: No significant abnormality in the visualized paranasal sinuses or mastoid air nicolas ls. CRANIOCERVICAL JUNCTION: No significant abnormality. ADDITIONAL FINDINGS: None. IMPRESSION: 1. There is continued mild microvascular angiopathy and cerebral atrophy without CT evidence of acute intracranial hemorrhage or significant interval change from 05/27/2020. Signer Name: Sean Alicia MD Signed: 06/02/2020 8:55 PM Workstation Name: [id number]
[2020-06-02 21:15] LABS: Alanine Aminotransferase 28 units/L (7-56); BUN/Creatinine Ratio 21; Blood Urea Nitrogen 23 mg/dL (9-20); Calcium 9.5 mg/dL (8.4-10.2); Hemolysis Index 16
[2020-06-02] MEDS ORDERED: DEXTROSE 50% IN WATER (25GM) 50 ML SYRINGE IV PRN (22:39)
[2020-06-02] MEDS ORDERED: ONDANSETRON 4 MG/2 ML INJ IV PRN (22:43)
[2020-06-02] MEDS ORDERED: ACETAMINOPHEN 325 MG TAB PO PRN (22:43)
[2020-06-02] MEDS ORDERED: PALIPERIDONE PALMITATE 234 MG IM SCH (23:00)
[2020-06-02] MEDS ORDERED: traZODone 100 MG TAB PO PRN (23:00)
[2020-06-02] MEDS ORDERED: CEFEPIME/NS 2 GM/100 ML 2 GM/100 ML BAG IV SCH (23:00)
[2020-06-03] MEDS ORDERED: CEFEPIME/NS 2 GM/100 ML 2 GM/100 ML BAG IV ONE (00:13)
[2020-06-03 01:08] LABS: Bacteria,Urine 1+ /HPF (Negative); Bilirubin,Urine NEG (Negative); Blood,Urine NEG (Negative); Color,Urine Straw (Yellow); Mucus,Urine FEW /HPF; Protein,Urine <15 mg/dL mg/dL (Negative); Urobilinogen,Urine < 2.0 mg/dL (<2.0)
[2020-06-03 01:20] LABS: Amphetamine Screen,Urine PRESUMPTIVE NEGATIVE; Benzodiazepines Screen,Urine PRESUMPTIVE NEGATIVE; Cannabinoid Screen,Urine PRESUMPTIVE NEGATIVE; Cocaine Screen,Urine PRESUMPTIVE NEGATIVE; Methadone Screen,Urine PRESUMPTIVE NEGATIVE; Opiate Screen,Urine PRESUMPTIVE NEGATIVE
--- NOTE | 2020-06-03 04:08 | History and Physical Report ---
History of Present Illness Date of examination: 06/02/20 Date of admission: 06/02/20 21:39 Chief complaint: Altered Mental Status History of present illness: 69 year old male presented with Altered mental status Past History Past Medical History: acute ID, diabetes, hypertension, other (Scizophrenia) Past Surgical History: Other (Open heart surgery) Social history: smoking Medications and Allergies Allergies Allergy/AdvReac Type Severity Reaction Status Date / Time No Known Allergies Allergy Unverified 05/19/18 03:32 Home Medications Medication Instructions Recorded Confirmed Last Taken Type Paliperidone Palmitate [Invega 234 mg IM QMONTH 07/03/18 05/27/20 06/13/18 History Sustenna] traZODone [Desyrel] 2 tab PO QHS PRN 07/03/18 05/27/20 07/02/18 History Aspirin [Adult Aspirin] 81 mg PO DAILY 05/27/20 05/27/20 Unknown History Atorvastatin [Lipitor] 40 mg PO QHS 05/27/20 05/27/[address] [Luis Penaloza] 500 mg PO BID 05/27/20 05/27/20 Unknown History Gabapentin 300 mg PO HS 05/27/20 05/27/20 Unknown History Insulin Detemir [Levemir Flextouch] 22 unit SQ HS 05/27/20 05/27/20 Unknown History Meloxicam [Mobic] 7.5 mg PO QDAY 05/27/20 05/27/20 Unknown History OLANZapine [Zyprexa] 50 mg PO HS 05/27/20 05/27/20 Unknown History Synjardy Xr 25-1,000 mg Tablet 25 mg PO DAILY 05/27/20 05/27/20 Unknown History glyBURIDE [Diabeta] 10 mg PO BID 05/27/20 05/27/20 Unknown History hydrALAZINE [Apresoline TAB] 25 mg PO Q8HR #90 tablet 06/01/20 Unknown Rx Active Meds: Active Medications Acetaminophen (Tylenol) 650 mg PO Q4H PRN PRN Reason: Fever >101 Aspirin (Halfprin Ec) 81 mg PO DAILY [facility] Atorvastatin Calcium (Lipitor) 40 mg PO QHS [facility] Dextrose (D50w (25gm) Syringe) 50 ml IV Q30MIN PRN; Protocol PRN Reason: Hypoglycemia Divalproex Sodium (Luis Penaloza) 500 mg PO BID [facility] Gabapentin (Gabapentin) 300 mg PO HS [facility] Hydralazine HCl (Apresoline) 25 mg PO Q8HR [facility] Cefepime HCl (Cefepime/Ns 2 Gm/100 Ml) 2 gm in 100 mls @ 200 mls/hr IV Q24H [facility]; Protocol Last Admin: 06/03/20 00:24 Dose: 200 mls/hr Documented by: Sodium Chloride (Nacl 0.9% 1000 Ml) 1,000 mls @ 75 mls/hr IV DIRECT [facility] Insulin Glargine (Lantus) 22 units SUB-Q HS [facility] Insulin Human Lispro (Humalog) 0 unit SUB-Q QHS [facility]; Protocol Insulin Human Regular (Humulin R) 0 unit SUB-Q AC [facility]; Protocol Metformin HCl (Glucophage Xr) 1,000 mg PO QDDIAB [facility] Miscellaneous Medication (Paliperidone Palmitate [Invega Sustenna]) 234 mg IM QMONTH [facility] Miscellaneous Medication (Synjardy Xr 25-1,000 Mg Tablet) 25 mg PO DAILY [facility] Olanzapine (Zyprexa) 50 mg PO HS [facility] Ondansetron HCl (Zofran) 4 mg IV Q8H PRN PRN Reason: Nausea And Vomiting Trazodone HCl (Desyrel) 100 mg PO QHS PRN PRN Reason: Insomnia Review of Systems Constitutional: no weight loss, no weight gain, no fever, no chills, no sweats, no night sweats, no weakness Eyes: bilateral: other (NO BILATERAL EYE SYMPTOMS) Ears, nose, mouth and throat: no ear pain, no ear discharge, no decreased hearing, no nose pain, no nasal congestion, no nasal discharge, no sinus pre ssure, no dental pain, no hoarseness, no sore throat, no headache, no vertigo Cardiovascular: no chest pain, no orthopnea, no palpitations, no rapid/irregular heart beat, no syncope, no lightheadedness, no shortness of breath Respiratory: no cough, no shortness of breath Gastrointestinal: no abdominal pain, no nausea, no vomiting, no diarrhea, no constipation, no change in bowel habits, no hematemesis, no coffee ground em esis, no hematochezia Genitourinary Male: no dysuria, no hematuria Rectal: no pain Musculoskeletal: no neck stiffness, no neck pain, no arthritis Integumentary: no rash, no pruritis, no redness, no sores, no wounds, no jaundice Neurological: change in mentation, confusion, no paralysis, no weakness, no seizures, no syncope, no tremors, no ataxia, no vertigo, no headaches Psychiatric: no anxiety, no depression, no hopelessness Endocrine: no cold intolerance, no heat intolerance, no polydipsia, no polyuria, no nocturia, no palpatations Hematologic/Lymphatic: no easy bruising, no easy bleeding, no lymphadenopathy Allergic/Immunologic: no urticaria Exam - Constitutional Vitals: Temp Pulse Resp BP Pulse Ox 96.7 F L 70 16 120/53 96 06/02/20 22:10 06/03/20 03:27 06/03/20 02:00 06/03/20 02:00 06/03/20 02:38 General appearance: Present: no acute distress - EENT Eyes: Present: PERRL - Neck Neck: Present: supple, normal ROM - Respiratory Respiratory effort: normal - Cardiovascular Rhythm: regular Heart Sounds: Present: S1 & S2. Absent: gallop, systolic murmur, diastolic murmur - Extremities Extremities: no ischemia, No edema Peripheral Pulses: within normal limits - Abdominal General gastrointestinal: Present: soft, non-tender, non-distended. Absent: tender, distended, rigid, hepatomegaly, splenomegaly, mass Male genitourinary: Present: deferred - Rectal Rectal Exam: deferred - Integumentary Integumentary: Present: clear, warm, dry. Absent: rash, clammy - Musculoskeletal Musculoskeletal: strength equal bilaterally - Psychiatric Psychiatric: appropriate mood/affect HEART Score - HEART Score Age: > 65 Risk factors: > 3 risk factors or hx of atherosclerotic disease Troponin: Troponin T < 0.010 ng/mL (0.00-0.029) 06/02/20 19:59 - Critical Actions Critical Actions: 0-3 pts:0.9-1.7%risk of adverse cardiac event.Candidate for discharge Results - Labs CBC & Chem 7: 06/02/20 19:59 06/02/20 19:59 Labs: Laboratory Last Values WBC 4.2 K/mm3 (4.5-11.0) L 06/02/20 19:59 RBC 4.41 M/mm3 (3.65-5.03) 06/02/20 19:59 Hgb 13.6 gm/dl (11.8-15.2) 06/02/20 19:59 Hct 40.5 % (35.5-45.6) 06/02/20 19:59 MCV 92 fl (84-94) 06/02/20 19:59 MCH 31 pg (28-32) 06/02/20 19:59 MCHC 34 % (32-34) 06/02/20 19:59 RDW 15.5 % (13.2-15.2) H 06/02/20 19:59 Plt Count 131 K/mm3 (140-440) L 06/02/20 19:59 Lymph % (Auto) 28.2 % (13.4-35.0) 06/02/20 19:59 Mason % (Auto) 14.0 % (0.0-7.3) H 06/02/20 19:59 Eos % (Auto) 1.0 % (0.0-4.3) 06/02/20 19:59 Baso % (Auto) 0.5 % (0.0-1.8) 06/02/20 19:59 Lymph # 1.2 K/mm3 (1.2-5.4) 06/02/20 19:59 Mason # 0.6 K/mm3 (0.0-0.8) 06/02/20 19:59 Eos # 0.0 K/mm3 (0.0-0.4) 06/02/20 19:59 Baso # 0.0 K/mm3 (0.0-0.1) 06/02/20 19:59 Seg Neutrophils % 56.3 % (40.0-70.0) 06/02/20 19:59 Seg Neutrophils # 2.4 K/mm3 (1.8-7.7) 06/02/20 19:59 PT 13.7 Sec. (12.2-14.9) 06/02/20 19:59 INR 1.04 (0.87-1.13) 06/02/20 19:59 APTT 26.2 Sec. (24.2-36.6) 06/02/20 19:59 Sodium 139 mmol/L (137-145) 06/02/20 19:59 Potassium 4.6 mmol/L (3.6-5.0) 06/02/20 19:59 Chloride 100.7 mmol/L (98-107) 06/02/20 19:59 Carbon Dioxide 26 mmol/L (22-30) 06/02/20 19:59 Anion Gap 17 mmol/L 06/02/20 19:59 BUN 23 mg/dL (9-20) H 06/02/20 19:59 Creatinine 1.1 mg/dL (0.8-1.3) 06/02/20 19:59 Estimated GFR > 60 ml/min 06/02/20 19:59 BUN/Creatinine Ratio 21 % 06/02/20 19:59 Glucose 464 mg/dL (75-100) H 06/02/20 19:59 POC Glucose 185 (70-105) H 06/03/20 02:44 Lactic Acid 2.30 mmol/L (0.7-2.0) H* 06/02/20 19:59 Calcium 9.5 mg/dL (8.4-10.2) 06/02/20 19:59 Total Bilirubin 0.20 mg/dL (0.1-1.2) 06/02/20 19:59 AST 21 units/L (5-40) 06/02/20 19:59 ALT 28 units/L (7-56) 06/02/20 19:59 Alkaline Phosphatase 56 units/L (35-129) 06/02/20 19:59 Troponin T < 0.010 ng/mL (0.00-0.029) 06/02/20 19:59 Total Protein 6.9 g/dL (6.3-8.2) 06/02/20 19:59 Albumin 4.0 g/dL (3.9-5) 06/02/20 19:59 Albumin/Globulin Ratio 1.4 % 06/02/20 19:59 TSH 5.020 mlU/mL (0.270-4.200) H 06/02/20 19:59 Urine Color Straw (Yellow) 06/03/20 00:33 Urine Turbidity Clear (Clear) 06/03/20 00:33 Urine pH 6.0 (5.0-7.0) 06/03/20 00:33 Ur Specific Cotter 1.028 (1.003-1.030) 06/03/20 00:33 Urine Protein <15 mg/dl mg/dL (Negative) 06/03/20 00:33 Urine Glucose (UA) >=500 mg/dL (Negative) 06/03/20 00:33 Urine Ketones Tr mg/dL (Negative) 06/03/20 00:33 Urine Blood Neg (Negative) 06/03/20 00:33 Urine Nitrite Neg (Negative) 06/03/20 00:33 Urine Bilirubin Neg (Negative) 06/03/20 00:33 Urine Urobilinogen < 2.0 mg/dL (<2.0) 06/03/20 00:33 Ur Leukocyte Esterase Neg (Negative) 06/03/20 00:33 Urine WBC (Auto) 1.0 /HPF (0.0-6.0) 06/03/20 00:33 Urine RBC (Auto) 1.0 /HPF (0.0-6.0) 06/03/20 00:33 Urine Bacteria (Auto) 1+ /HPF (Negative) 06/03/20 00:33 Urine Mucus Few /HPF 06/03/20 00:33 Salicylates < 0.3 mg/dL (2.8-20.0) L 06/02/20 19:59 Urine Opiates Screen Presumptive negative 06/03/20 00:33 Urine Methadone Screen Presumptive negative 06/03/20 00:33 Acetaminophen 5.0 ug/mL (10.0-30.0) L 06/02/20 19:59 Ur Barbiturates Screen Presumptive negative 06/03/20 00:33 Valproic Acid 73.2 ug/mL (50-100) 06/02/20 19:59 Ur Phencyclidine Scrn Presumptive negative 06/03/20 00:33 Ur Amphetamines Screen Presumptive negative 06/03/20 00:33 U Benzodiazepines Scrn Presumptive negative 06/03/20 00:33 Urine Cocaine Screen Presumptive negative 06/03/20 00:33 U Marijuana (THC) Screen Presumptive negative 06/03/20 00:33 Drugs of Abuse Note Disclamer 06/03/20 00:33 Plasma/Serum Alcohol < 0.01 % (0-0.07) 06/02/20 19:59 Gardner/IV: IV Catheter Type [Right INT / Saline Lock Forearm] Assessment and Plan - Patient Problems (1) Altered mental status Current Visit: Yes Status: Acute Plan to address problem: 1. OXYGEN BY N/CANNULA 2. I.V FLUID 3. SERIAL CARDIAC ENZYMES 4. ACCUCHECKS WITH SLIDING SCALE COVERAGE (2) Hypothyroidism Current Visit: Yes Status: Acute Plan to address problem: 1. THYROID REPLACEMENT TREATMENT 2. T4 LEVEL
[2020-06-03] MEDS: SODIUM CHLORIDE 0.9% 1000 ML 1,000 ML IV SCH ×2 (04:26→17:47)
[2020-06-03] MEDS: hydrALAZINE 25 MG TAB PO SCH ×3 (05:31→22:24)
[2020-06-03] MEDS ORDERED: SYNJARDY PO SCH (10:00)
[2020-06-03] MEDS: INSULIN REGULAR, HUMAN 100 UNIT/ML 3ML VIAL SUB-Q SCH ×3 (10:40→17:46)
[2020-06-03] MEDS: metFORMIN XR 500MG TAB PO SCH (10:49)
[2020-06-03] MEDS: ASPIRIN EC 81 MG TAB PO SCH (10:52)
[2020-06-03] MEDS: DIVALPROEX DR 500 MG TAB PO SCH ×2 (10:52→22:24)
--- NOTE | 2020-06-03 13:14 | Consultation ---
History of Present Illness - Reason for Consult Consult date: 06/03/20 Reason for consult: AMS - Chief Complaint Chief complaint: Altered Mental Status - History of Present Psychiatric Illness Chin Barr is a 69 y/o male patient who was admitted into the hospital for altered mental status. During my interview with the patient he is sitting up eating. He is calm and cooperative. He is a/ox 2. He makes good eye contact. He is a poor historian. He says he feels "alright." The patient states he has a history of "schizophrenia." He could not recall his medications. The patients says he "used to hear voices awhile back." He denies any hallucinations at present. He denies suicidal ideation or any previous attempts. He denies any fear or feelings of endangerment. He says he sees a psychiatrist but he could not tell me who he sees. He says he was admitted for psychiatric related conditions "back in the 80's." The patient denies any illicit drug use or alcohol. He states, "but I do smoke cigarets every now and then, but not everyday." The patient denies any problems with his sleep cycle or appetite. The patient states he lives with his niece. At the end of the interview, the patient states, "I have one question, that my sister told me to ask." He then says, "when am I going home?" PAST PSYCHIATRIC HISTORY: Diagnoses: Schizophrenia Suicide attempts or Self-harm behavior: Denies Prior psychiatric hospitalizations: "back in the 80s" Substance Abuse history: Denies Previous psychiatric medications tried: Could not recall Outpatient treatment: Yes PAST MEDICAL HISTORY: None reported Family Psychiatric History: None reported or documented SOCIAL HISTORY Marital Status: Living Arrangements: with niece Employment Status: Disabled Access to guns/weapons: Denies Education: 10th grade History of Abuse: Denies Legal History: none reported REVIEW OF SYSTEMS Constitutional: Negative for weight loss ENT: Negative for stridor Respiratory: Negative for cough or hemoptysis All other systems reviewed and are negative MENTAL STATUS EXAMINATION General Appearance: Dressed appropriately Behavior: Calm and cooperative Mood: "alright" Affect and affective range: Congruent with stated mood Thought Process: Goal directed Speech: Normal rate and volume Thought Content: Suicidal Ideation: Denies SI Homicidal Ideation: Denies HI Hallucinations: Denies Delusions: Denies Insight and Judgment: Limited Memory/Cognition: Limited Attention: Normal ASSESSMENT Altered Mental Status RECOMMENDATIONS Continue home medications Continue home meds Sitter: Defer to primary Medical: per primary Disposition: Do not recommend acute inpatient psychiatric treatment at this time Will sign off. Thank you for this consult. Please call with any questions or concerns. Medications and Allergies Allergies Allergy/AdvReac Type Severity Reaction Status Date / Time No Known Allergies Allergy Unverified 05/19/18 03:32 Home Medications Medication Instructions Recorded Confirmed Last Taken Type Paliperidone Palmitate [Invega 234 mg IM QMONTH 07/03/18 05/27/20 06/13/18 History Sustenna] traZODone [Desyrel] 2 tab PO QHS PRN 07/03/18 05/27/20 07/02/18 History Aspirin [Adult Aspirin] 81 mg PO DAILY 05/27/20 05/27/20 Unknown History Atorvastatin [Lipitor] 40 mg PO QHS 05/27/20 05/27/[address] [Luis Penaloza] 500 mg PO BID 05/27/20 05/27/20 Unknown History Gabapentin 300 mg PO HS 05/27/20 05/27/20 Unknown History Insulin Detemir [Levemir Flextouch] 22 unit SQ HS 05/27/20 05/27/20 Unknown History Meloxicam [Mobic] 7.5 mg PO QDAY 05/27/20 05/27/20 Unknown History OLANZapine [Zyprexa] 50 mg PO HS 05/27/20 05/27/20 Unknown History Synjardy Xr 25-1,000 mg Tablet 25 mg PO DAILY 05/27/20 05/27/20 Unknown History glyBURIDE [Diabeta] 10 mg PO BID 05/27/20 05/27/20 Unknown History hydrALAZINE [Apresoline TAB] 25 mg PO Q8HR #90 tablet 06/01/20 Unknown Rx Active Meds: Active Medications Acetaminophen (Tylenol) 650 mg PO Q4H PRN PRN Reason: Fever >101 Aspirin (Halfprin Ec) 81 mg PO DAILY [facility] Last Admin: 06/03/20 10:52 Dose: 81 mg Documented by: Atorvastatin Calcium (Lipitor) 40 mg PO QHS [facility] Dextrose (D50w (25gm) Syringe) 50 ml IV Q30MIN PRN; Protocol PRN Reason: Hypoglycemia Divalproex Sodium (Depakote Dr) 500 mg PO BID [facility] Last Admin: 06/03/20 10:52 Dose: 500 mg Documented by: Gabapentin (Gabapentin) 300 mg PO HS [facility] Hydralazine HCl (Apresoline) 25 mg PO Q8HR [facility] Last Admin: 06/03/20 05:31 Dose: Not Given Documented by: Cefepime HCl (Cefepime/Ns 2 Gm/100 Ml) 2 gm in 100 mls @ 200 mls/hr IV Q24H [facility] ; Protocol Last Admin: 06/03/20 00:24 Dose: 200 mls/hr Documented by: Sodium Chloride (Nacl 0.9% 1000 Ml) 1,000 mls @ 75 mls/hr IV DIRECT [facility] Last Admin: 06/03/20 04:26 Dose: 75 mls/hr Documented by: Insulin Glargine (Lantus) 22 units SUB-Q HS [facility] Insulin Human Lispro (Humalog) 0 unit SUB-Q QHS [facility]; Protocol Insulin Human Regular (Humulin R) 0 unit SUB-Q AC [facility]; Protocol Last Admin: 06/03/20 10:40 Dose: Not Given Documented by: Metformin HCl (Glucophage Xr) 1,000 mg PO QDDIAB [facility] Last Admin: 06/03/20 10:49 Dose: Not Given Documented by: Miscellaneous Medication (Paliperidone Palmitate [Invega Sustenna]) 234 mg IM QMONTH [facility] Miscellaneous Medication (Synjardy Xr 25-1,000 Mg Tablet) 25 mg PO DAILY [facility] Olanzapine (Zyprexa) 50 mg PO HS [facility] Ondansetron HCl (Zofran) 4 mg IV Q8H PRN PRN Reason: Nausea And Vomiting Trazodone HCl (Desyrel) 100 mg PO QHS PRN PRN Reason: Insomnia Mental Status Exam - Vital signs Last Vital Signs Temp 98.2 F 06/03/20 11:49 Pulse 65 06/03/20 11:49 Resp 18 06/03/20 11:49 BP 141/77 06/03/20 11:49 Pulse Ox 98 06/03/20 11:49 Results Result Diagrams: 06/02/20 19:59 06/02/20 19:59 Abnormal lab results 06/02/20 06/02/20 06/02/20 Range/Units 19:59 19:59 19:59 WBC 4.2 L (4.5-11.0) K/mm3 RDW 15.5 H (13.2-15.2) % Plt Count 131 L (140-440) K/mm3 Ellis % (Auto) 14.0 H (0.0-7.3) % BUN 23 H (9-20) mg/dL Glucose 464 H (75-100) mg/dL POC Glucose (70-105) Lactic Acid 2.30 H* (0.7-2.0) mmol/L TSH (0.270-4.200) mlU/mL Salicylates (2.8-20.0) mg/dL Acetaminophen (10.0-30.0) ug/mL 06/02/20 06/02/20 06/02/20 Range/Units 19:59 19:59 19:59 WBC (4.5-11.0) K/mm3 RDW (13.2-15.2) % Plt Count (140-440) K/mm3 Ellis % (Auto) (0.0-7.3) % BUN (9-20) mg/dL Glucose (75-100) mg/dL POC Glucose (70-105) Lactic Acid (0.7-2.0) mmol/L TSH 5.020 H (0.270-4.200) mlU/mL Salicylates < 0.3 L (2.8-20.0) mg/dL Acetaminophen 5.0 L (10.0-30.0) ug/mL 06/03/20 06/03/20 Range/Units 00:40 02:44 WBC (4.5-11.0) K/mm3 RDW (13.2-15.2) % Plt Count (140-440) K/mm3 Ellis % (Auto) (0.0-7.3) % BUN (9-20) mg/dL Glucose (75-100) mg/dL POC Glucose 171 H 185 H (70-105) Lactic Acid (0.7-2.0) mmol/L TSH (0.270-4.200) mlU/mL Salicylates (2.8-20.0) mg/dL Acetaminophen (10.0-30.0) ug/mL All other labs normal.
--- NOTE | 2020-06-03 13:25 | Event Note ---
Date: 06/03/20 Patient seen and examined Second IMS visit of the day Chart reviewed Results reviewed CT head results reviewed Patient is a poor historian Appears confused. Has a slow slurred speech will Neuro consult Patient is on Depakote likely for his psych problems He denies history of stroke or seizure disorder Awaiting psych evaluation
[2020-06-03] MEDS ORDERED: GABAPENTIN 300 MG CAP PO SCH (22:00)
[2020-06-03] MEDS: CEFEPIME/NS 2 GM/100 ML 2 GM/100 ML BAG IV SCH (22:22)
[2020-06-03] MEDS: INSULIN GLARGINE 100 UNITS/ML SUB-Q SCH (22:25)
[2020-06-03] MEDS: INSULIN LISPRO 100 UNIT/ML VIAL 3 mL SUB-Q SCH (22:25)
[2020-06-04] MEDS: hydrALAZINE 25 MG TAB PO SCH ×3 (06:08→23:50)
[2020-06-04] MEDS: SODIUM CHLORIDE 0.9% 1000 ML 1,000 ML IV SCH (06:12)
[2020-06-04] MEDS: metFORMIN XR 500MG TAB PO SCH ×2 (09:01→10:12)
[2020-06-04] MEDS: INSULIN REGULAR, HUMAN 100 UNIT/ML 3ML VIAL SUB-Q SCH ×3 (09:01→17:39)
[2020-06-04] MEDS: CEFEPIME/NS 2 GM/100 ML 2 GM/100 ML BAG IV SCH (10:10)
[2020-06-04] MEDS: ASPIRIN EC 81 MG TAB PO SCH (10:11)
[2020-06-04] MEDS: DIVALPROEX DR 500 MG TAB PO SCH ×2 (10:11→22:49)
--- NOTE | 2020-06-04 12:03 | Progress Note ---
Subjective Date of service: 06/04/20 Interval history: Mr. Barr is a 69-year-old -[place] male admitted for altered mental status Patient is quite lethargic today and I am barely able to wake him up He is not in any respiratory distress He was more awake and alert yesterday and was able to answer questions although he is a poor historian Lab results reviewed Psychiatry nurse practitioner note reviewed Assessment and plan Acute encephalopathy Unclear etiology He has history of schizophrenia and he is on olanzapine and valproic acid Unlikely patient has any infection UA and urine cultures results reviewed We will discontinue IV antibiotic We will request neurology consult Had a long discussion with the patient's niece who apparently takes care of him She states that she is out of the house during most of the day and patient stays home She does not feel patient will be safe at home We will request caser up and physical therapy consult as his acute rehab versus care home facility placement Will discontinue gabapentin for now the patient is lethargic History of schizophrenia Continue olanzapine and valproic acid Check valproic acid level Type 2 diabetes on insulin Continue basal insulin and insulin sliding scale coverage Accu-Cheks reviewed Hypertension Fair Hyperlipidemia Continue statin Objective - Constitutional Vitals: Vital Signs - 12hr 06/04/20 06/04/20 06/04/20 00:29 04:00 05:07 Temperature 97.3 F L 97.6 F Pulse Rate 63 60 58 L Respiratory 18 18 Rate Blood Pressure 195/85 147/64 O2 Sat by Pulse 100 97 Oximetry 06/04/20 06/04/20 06:08 07:06 Temperature Pulse Rate 58 L Respiratory 20 Rate Blood Pressure 147/64 O2 Sat by Pulse Oximetry General appearance: Present: no acute distress, other (Lethargic) - EENT Eyes: PERRL, EOM intact ENT: hearing intact - Neck Neck: supple, normal ROM - Respiratory Respiratory effort: normal Respiratory: bilateral: CTA - Cardiovascular Rhythm: regular Heart Sounds: Present: S1 & S2 Extremities: No edema - Gastrointestinal General gastrointestinal: Present: soft, non-tender Rectal Exam: deferred - Integumentary Integumentary: clear - Neurologic Neurologic: other (lethargic) - Labs CBC & Chem 7: 06/02/20 19:59 06/02/20 19:59 Labs: Abnormal lab results 06/03/20 06/03/20 06/03/20 Range/Units 12:00 13:56 16:00 POC Glucose 252 H 327 H (70-105) Hemoglobin A1c 8.9 H (4-6) % 06/03/20 06/03/20 06/04/20 Range/Units 17:56 22:29 08:13 POC Glucose 285 H 314 H 156 H (70-105) Hemoglobin A1c (4-6) % HEART Score - HEART Score Age: > 65 Risk factors: > 3 risk factors or hx of atherosclerotic disease Troponin: Troponin T < 0.010 ng/mL (0.00-0.029) 06/03/20 18:22 - Critical Actions Critical Actions: 0-3 pts:0.9-1.7%risk of adverse cardiac event.Candidate for discharge
[2020-06-04] MEDS: INSULIN LISPRO 100 UNIT/ML VIAL 3 mL SUB-Q SCH (22:02)
[2020-06-04] MEDS: INSULIN GLARGINE 100 UNITS/ML SUB-Q SCH (23:51)
[2020-06-05 04:52] LABS: Blood Urea Nitrogen 12 mg/dL (9-20); Calcium 8.8 mg/dL (8.4-10.2); Hemolysis Index 5
[2020-06-05 05:02] LABS: BUN/Creatinine Ratio 17
[2020-06-05] MEDS: hydrALAZINE 25 MG TAB PO SCH ×3 (06:06→22:58)
--- NOTE | 2020-06-05 09:46 | Progress Note ---
<STONE CERVANTES - Last Filed: 06/05/20 11:24> Assessment and Plan - Patient Problems (1) RUDY (acute kidney injury) Current Visit: Yes Status: Acute Plan to address problem: - Admit Cr 1.1 which has trended down to 0.7 - Likely secondary to vasomotor nephropathy (2) Acute metabolic encephalopathy Current Visit: Yes Status: Acute Plan to address problem: - Unclear etiology - History of schizophrenia and he is on olanzapine and valproic acid - UA (-), UC NGTD - Neurology consult requested (3) Schizophrenia Current Visit: Yes Status: Chronic Plan to address problem: - Continue Depakote, Invega, and Zyprexa - 06/05 valproic acid level 68 - MH consulted and appreciate recommendations - Does not recommend inpatient psych at this time - CM for placement as family member voiced safety concern in current living situation (4) Diabetes Current Visit: Yes Status: Chronic Plan to address problem: - SSI - Accucheck ACHS - CC diet - Lantus 22 units HS - Metformin 1000mg BID (5) Hypertension Current Visit: No Status: Chronic Qualifiers: Hypertension type: essential hypertension Qualified Code(s): I10 - Ismael mas (primary) hypertension Plan to address problem: - Restarted hydralazine - BP monitoring per protocol (6) Tobacco abuse Current Visit: Yes Status: Acute Plan to address problem: - Smoking cessation counseling (7) DVT prophylaxis Current Visit: Yes Status: Acute Plan to address problem: - SDCs to BLE while in bed - Lovenox sub q History Interval history: This is a 69 year old male with schizophreni, diabetes mellitus, [place] s/p PCI/c ardiac stents and current smoker who presents with altered mental status. Patient was discharged on 06/01 from this hospital after admission for altered mental status. On 06/02 patient was conversant and ambulatory in the morning however on presentation he was only responding to noxious stimuli. According to EMS, BG 538. He was admitted with acute metabolic encephalopathy. Of note on recent admission he presented with AMS and an acute CVA was ruled out. This morning her states he is feeling better and would like to go home. PT evaluation is pending. 06/03: MH consult: Do not recommend acute inpatient psychiatric treatment at this time, PT consulted for eval and CM for placement. 8/16: BC, UA (-), stopped abx Hospitalist Physical - Constitutional Vitals: Temp Pulse Resp BP Pulse Ox 98.1 F 57 L 18 164/62 98 06/05/20 03:00 06/05/20 06:06 06/05/20 03:00 06/05/20 06:06 06/05/20 03:00 General appearance: Present: no acute distress, other (Lethargic) HEART Score - HEART Score Age: > 65 Risk factors: > 3 risk factors or hx of atherosclerotic disease Troponin: Troponin T < 0.010 ng/mL (0.00-0.029) 06/03/20 18:22 - Critical Actions Critical Actions: 0-3 pts:0.9-1.7%risk of adverse cardiac event.Candidate for discharge Results - Labs CBC & Chem 7: 06/02/20 19:59 06/05/20 03:51 Labs: Laboratory Last Values WBC 4.2 K/mm3 (4.5-11.0) L 06/02/20 19:59 RBC 4.41 M/mm3 (3.65-5.03) 06/02/20 19:59 Hgb 13.6 gm/dl (11.8-15.2) 06/02/20 19:59 Hct 40.5 % (35.5-45.6) 06/02/20 19:59 MCV 92 fl (84-94) 06/02/20 19:59 MCH 31 pg (28-32) 06/02/20 19:59 MCHC 34 % (32-34) 06/02/20 19:59 RDW 15.5 % (13.2-15.2) H 06/02/20 19:59 Plt Count 131 K/mm3 (140-440) L 06/02/20 19:59 Lymph % (Auto) 28.2 % (13.4-35.0) 06/02/20 19:59 Armstrong % (Auto) 14.0 % (0.0-7.3) H 06/02/20 19:59 Eos % (Auto) 1.0 % (0.0-4.3) 06/02/20 19:59 Baso % (Auto) 0.5 % (0.0-1.8) 06/02/20 19:59 Lymph # 1.2 K/mm3 (1.2-5.4) 06/02/20 19:59 Armstrong # 0.6 K/mm3 (0.0-0.8) 06/02/20 19:59 Eos # 0.0 K/mm3 (0.0-0.4) 06/02/20 19:59 Baso # 0.0 K/mm3 (0.0-0.1) 06/02/20 19:59 Seg Neutrophils % 56.3 % (40.0-70.0) 06/02/20 19:59 Seg Neutrophils # 2.4 K/mm3 (1.8-7.7) 06/02/20 19:59 PT 13.7 Sec. (12.2-14.9) 06/02/20 19:59 INR 1.04 (0.87-1.13) 06/02/20 19:59 APTT 26.2 Sec. (24.2-36.6) 06/02/20 19:59 Sodium 141 mmol/L (137-145) 06/05/20 03:51 Potassium 3.8 mmol/L (3.6-5.0) 06/05/20 03:51 Chloride 105.8 mmol/L (98-107) 06/05/20 03:51 Carbon Dioxide 25 mmol/L (22-30) 06/05/20 03:51 Anion Gap 14 mmol/L 06/05/20 03:51 BUN 12 mg/dL (9-20) 06/05/20 03:51 Creatinine 0.7 mg/dL (0.8-1.3) L 06/05/20 03:51 Estimated GFR > 60 ml/min 06/05/20 03:51 BUN/Creatinine Ratio 17 % 06/05/20 03:51 Glucose 233 mg/dL (75-100) H 06/05/20 03:51 POC Glucose 254 (70-105) H 06/05/20 09:02 Hemoglobin A1c 8.9 % (4-6) H 06/03/20 13:56 Lactic Acid 2.30 mmol/L (0.7-2.0) H* 06/02/20 19:59 Calcium 8.8 mg/dL (8.4-10.2) 06/05/20 03:51 Total Bilirubin 0.20 mg/dL (0.1-1.2) 06/02/20 19:59 AST 21 units/L (5-40) 06/02/20 19:59 ALT 28 units/L (7-56) 06/02/20 19:59 Alkaline Phosphatase 56 units/L (35-129) 06/02/20 19:59 Troponin T < 0.010 ng/mL (0.00-0.029) 06/03/20 18:22 Total Protein 6.9 g/dL (6.3-8.2) 06/02/20 19:59 Albumin 4.0 g/dL (3.9-5) 06/02/20 19:59 Albumin/Globulin Ratio 1.4 % 06/02/20 19:59 TSH 5.020 mlU/mL (0.270-4.200) H 06/02/20 19:59 Thyroxine (T4) 6.0 ug/dL (4.0-12.0) 06/03/20 07:49 Urine Color Straw (Yellow) 06/03/20 00:33 Urine Turbidity Clear (Clear) 06/03/20 00:33 Urine pH 6.0 (5.0-7.0) 06/03/20 00:33 Ur Specific [place] 1.028 (1.003-1.030) 06/03/20 00:33 Urine Protein <15 mg/dl mg/dL (Negative) 06/03/20 00:33 Urine Glucose (UA) >=500 mg/dL (Negative) 06/03/20 00:33 Urine Ketones Tr mg/dL (Negative) 06/03/20 00:33 Urine Blood Neg (Negative) 06/03/20 00:33 Urine Nitrite Neg (Negative) 06/03/20 00:33 Urine Bilirubin Neg (Negative) 06/03/20 00:33 Urine Urobilinogen < 2.0 mg/dL (<2.0) 06/03/20 00:33 Ur Leukocyte Esterase Neg (Negative) 06/03/20 00:33 Urine WBC (Auto) 1.0 /HPF (0.0-6.0) 06/03/20 00:33 Urine RBC (Auto) 1.0 /HPF (0.0-6.0) 06/03/20 00:33 Urine Bacteria (Auto) 1+ /HPF (Negative) 06/03/20 00:33 Urine Mucus Few /HPF 06/03/20 00:33 Salicylates < 0.3 mg/dL (2.8-20.0) L 06/02/20 19:59 Urine Opiates Screen Presumptive negative 06/03/20 00:33 Urine Methadone Screen Presumptive negative 06/03/20 00:33 Acetaminophen 5.0 ug/mL (10.0-30.0) L 06/02/20 19:59 Ur Barbiturates Screen Presumptive negative 06/03/20 00:33 Valproic Acid 68.4 ug/mL (50-100) 06/04/20 14:11 Ur Phencyclidine Scrn Presumptive negative 06/03/20 00:33 Ur Amphetamines Screen Presumptive negative 06/03/20 00:33 U Benzodiazepines Scrn Presumptive negative 06/03/20 00:33 Urine Cocaine Screen Presumptive negative 06/03/20 00:33 U Marijuana (THC) Screen Presumptive negative 06/03/20 00:33 Drugs of Abuse Note Disclamer 06/03/20 00:33 Plasma/Serum Alcohol < 0.01 % (0-0.07) 06/02/20 19:59 Microbiology: Microbiology 06/03/20 00:33 Urine,Clean Catch Urine Culture - Final NO GROWTH AFTER 48 HOURS Gardner/IV: Voiding Method Condom Catheter IV Catheter Type [Right INT / Saline Lock Forearm] Active Medications - Current Medications Current Medications: Generic Name Dose Route Start Last Admin Trade Name Freq PRN Reason Stop Dose Admin Acetaminophen 650 mg 06/02/20 22:43 Tylenol PO Q4H PRN Fever >101 Aspirin 81 mg 06/03/20 10:00 06/04/20 10:11 Halfprin Ec PO 81 mg DAILY BENJAMÍN Administration Atorvastatin Calcium 40 mg 06/03/20 22:00 06/04/20 22:50 Lipitor PO 40 mg QHS BENJAMÍN Administration Dextrose 50 ml 06/02/20 22:39 D50w (25gm) Syringe IV Q30MIN PRN Hypoglycemia Protocol Divalproex Sodium 500 mg 06/03/20 10:00 06/04/20 22:[address] PO 500 mg BID BENJAMÍN Administration Hydralazine HCl 25 mg 06/03/20 06:00 06/05/20 06:06 Apresoline PO 25 mg Q8HR BENJAMÍN Administration Sodium Chloride 1,000 mls @ 75 mls/hr 06/02/20 23:00 06/04/20 06:12 Nacl 0.9% 1000 Ml IV 75 mls/hr DIRECT BENJAMÍN Administration Insulin Glargine 22 units 06/03/20 22:00 06/04/20 23:51 Lantus SUB-Q 22 units HS BENJAMÍN Administration Insulin Human Lispro 0 unit 06/03/20 22:00 06/04/20 22:02 Humalog SUB-Q 3 unit QHS BENJAMÍN Administration Protocol Insulin Human Regular 0 unit 06/03/20 07:30 06/04/20 17:39 Humulin R SUB-Q 3 unit AC BENJAMÍN Administration Protocol Metformin HCl 1,000 mg 06/03/20 08:00 06/04/20 10:12 Glucophage Xr PO 1,000 mg QDDIAB BENJAMÍN Administration Miscellaneous Medication 234 mg 06/02/20 23:00 Paliperidone Palmitate [Invega Sustenna] IM QMONTH BENJAMÍN Miscellaneous Medication 25 mg 06/03/20 10:00 Synjardy Xr 25-1,000 Mg Tablet PO DAILY BENJAMÍN Olanzapine 50 mg 06/03/20 22:00 06/04/20 22:01 Zyprexa PO 50 mg HS BENJAMÍN Administration Ondansetron HCl 4 mg 06/02/20 22:43 Zofran IV Q8H PRN Nausea And Vomiting Trazodone HCl 100 mg 06/02/20 23:00 Desyrel PO QHS PRN Insomnia <FRANCA HERRMANN - Last Filed: 06/05/20 17:34> History Interval history: Lantus increased Needs placement. Agree with assessment and plan Hospitalist Physical - Constitutional Vitals: Temp Pulse Resp BP Pulse Ox 98.1 F 68 18 164/62 98 06/05/20 03:00 06/05/20 15:52 06/05/20 03:00 06/05/20 06:06 06/05/20 03:00 HEART Score - HEART Score Troponin: Troponin T < 0.010 ng/mL (0.00-0.029) 06/03/20 18:22 Results - Labs CBC & Chem 7: 06/02/20 19:59 06/05/20 03:51 Labs: Laboratory Last Values WBC 4.2 K/mm3 (4.5-11.0) L 06/02/20 19:59 RBC 4.41 M/mm3 (3.65-5.03) 06/02/20 19:59 Hgb 13.6 gm/dl (11.8-15.2) 06/02/20 19:59 Hct 40.5 % (35.5-45.6) 06/02/20 19:59 MCV 92 fl (84-94) 06/02/20 19:59 MCH 31 pg (28-32) 06/02/20 19:59 MCHC 34 % (32-34) 06/02/20 19:59 RDW 15.5 % (13.2-15.2) H 06/02/20 19:59 Plt Count 131 K/mm3 (140-440) L 06/02/20 19:59 Lymph % (Auto) 28.2 % (13.4-35.0) 06/02/20 19:59 Armstrong % (Auto) 14.0 % (0.0-7.3) H 06/02/20 19:59 Eos % (Auto) 1.0 % (0.0-4.3) 06/02/20 19:59 Baso % (Auto) 0.5 % (0.0-1.8) 06/02/20 19:59 Lymph # 1.2 K/mm3 (1.2-5.4) 06/02/20 19:59 Armstrong # 0.6 K/mm3 (0.0-0.8) 06/02/20 19:59 Eos # 0.0 K/mm3 (0.0-0.4) 06/02/20 19:59 Baso # 0.0 K/mm3 (0.0-0.1) 06/02/20 19:59 Seg Neutrophils % 56.3 % (40.0-70.0) 06/02/20 19:59 Seg Neutrophils # 2.4 K/mm3 (1.8-7.7) 06/02/20 19:59 PT 13.7 Sec. (12.2-14.9) 06/02/20 19:59 INR 1.04 (0.87-1.13) 06/02/20 19:59 APTT 26.2 Sec. (24.2-36.6) 06/02/20 19:59 Sodium 141 mmol/L (137-145) 06/05/20 03:51 Potassium 3.8 mmol/L (3.6-5.0) 06/05/20 03:51 Chloride 105.8 mmol/L (98-107) 06/05/20 03:51 Carbon Dioxide 25 mmol/L (22-30) 06/05/20 03:51 Anion Gap 14 mmol/L 06/05/20 03:51 BUN 12 mg/dL (9-20) 06/05/20 03:51 Creatinine 0.7 mg/dL (0.8-1.3) L 06/05/20 03:51 Estimated GFR > 60 ml/min 06/05/20 03:51 BUN/Creatinine Ratio 17 % 06/05/20 03:51 Glucose 233 mg/dL (75-100) H 06/05/20 03:51 POC Glucose 239 (70-105) H 06/05/20 12:08 Hemoglobin A1c 8.9 % (4-6) H 06/03/20 13:56 Lactic Acid 2.30 mmol/L (0.7-2.0) H* 06/02/20 19:59 Calcium 8.8 mg/dL (8.4-10.2) 06/05/20 03:51 Total Bilirubin 0.20 mg/dL (0.1-1.2) 06/02/20 19:59 AST 21 units/L (5-40) 06/02/20 19:59 ALT 28 units/L (7-56) 06/02/20 19:59 Alkaline Phosphatase 56 units/L (35-129) 06/02/20 19:59 Troponin T < 0.010 ng/mL (0.00-0.029) 06/03/20 18:22 Total Protein 6.9 g/dL (6.3-8.2) 06/02/20 19:59 Albumin 4.0 g/dL (3.9-5) 06/02/20 19:59 Albumin/Globulin Ratio 1.4 % 06/02/20 19:59 TSH 5.020 mlU/mL (0.270-4.200) H 06/02/20 19:59 Thyroxine (T4) 6.0 ug/dL (4.0-12.0) 06/03/20 07:49 Urine Color Straw (Yellow) 06/03/20 00:33 Urine Turbidity Clear (Clear) 06/03/20 00:33 Urine pH 6.0 (5.0-7.0) 06/03/20 00:33 Ur Specific [place] 1.028 (1.003-1.030) 06/03/20 00:33 Urine Protein <15 mg/dl mg/dL (Negative) 06/03/20 00:33 Urine Glucose (UA) >=500 mg/dL (Negative) 06/03/20 00:33 Urine Ketones Tr mg/dL (Negative) 06/03/20 00:33 Urine Blood Neg (Negative) 06/03/20 00:33 Urine Nitrite Neg (Negative) 06/03/20 00:33 Urine Bilirubin Neg (Negative) 06/03/20 00:33 Urine Urobilinogen < 2.0 mg/dL (<2.0) 06/03/20 00:33 Ur Leukocyte Esterase Neg (Negative) 06/03/20 00:33 Urine WBC (Auto) 1.0 /HPF (0.0-6.0) 06/03/20 00:33 Urine RBC (Auto) 1.0 /HPF (0.0-6.0) 06/03/20 00:33 Urine Bacteria (Auto) 1+ /HPF (Negative) 06/03/20 00:33 Urine Mucus Few /HPF 06/03/20 00:33 Salicylates < 0.3 mg/dL (2.8-20.0) L 06/02/20 19:59 Urine Opiates Screen Presumptive negative 06/03/20 00:33 Urine Methadone Screen Presumptive negative 06/03/20 00:33 Acetaminophen 5.0 ug/mL (10.0-30.0) L 06/02/20 19:59 Ur Barbiturates Screen Presumptive negative 06/03/20 00:33 Valproic Acid 68.4 ug/mL (50-100) 06/04/20 14:11 Ur Phencyclidine Scrn Presumptive negative 06/03/20 00:33 Ur Amphetamines Screen Presumptive negative 06/03/20 00:33 U Benzodiazepines Scrn Presumptive negative 06/03/20 00:33 Urine Cocaine Screen Presumptive negative 06/03/20 00:33 U Marijuana (THC) Screen Presumptive negative 06/03/20 00:33 Drugs of Abuse Note Disclamer 06/03/20 00:33 Plasma/Serum Alcohol < 0.01 % (0-0.07) 06/02/20 19:59 Microbiology: Microbiology 06/03/20 00:33 Urine,Clean Catch Urine Culture - Final NO GROWTH AFTER 48 HOURS Gardner/IV: Voiding Method Condom Catheter IV Catheter Type [Right INT / Saline Lock Forearm] Active Medications - Current Medications Current Medications: Generic Name Dose Route Start Last Admin Trade Name Freq PRN Reason Stop Dose Admin Acetaminophen 650 mg 06/02/20 22:43 Tylenol PO Q4H PRN Fever >101 Aspirin 81 mg 06/03/20 10:00 06/05/20 10:49 Halfprin Ec PO 81 mg DAILY BENJAMÍN Administration Atorvastatin Calcium 40 mg 06/03/20 22:00 06/04/20 22:50 Lipitor PO 40 mg QHS BENJAMÍN Administration Dextrose 50 ml 06/02/20 22:39 D50w (25gm) Syringe IV Q30MIN PRN Hypoglycemia Protocol Divalproex Sodium 500 mg 06/03/20 10:00 06/05/20 10:[address] PO 500 mg BID BENJAMÍN Administration Enoxaparin Sodium 40 mg 06/05/20 22:00 Enoxaparin SUB-Q QDAY@2200 BENJAMÍN Hydralazine HCl 25 mg 06/03/20 06:00 06/05/20 15:52 Apresoline PO 25 mg Q8HR BENJAMÍN Administration Sodium Chloride 1,000 mls @ 75 mls/hr 06/02/20 23:00 06/05/20 15:04 Nacl 0.9% 1000 Ml IV 75 mls/hr DIRECT BENJAMÍN Administration Insulin Glargine 26 units 06/05/20 17:33 Lantus SUB-Q [facility] Insulin Human Lispro 0 unit 06/03/20 22:00 06/04/20 22:02 Humalog SUB-Q 3 unit QHS [facility] Administration Protocol Insulin Human Regular 0 unit 06/03/20 07:30 06/05/20 17:31 Humulin R SUB-Q 2 unit AC [facility] Administration Protocol Metformin HCl 1,000 mg 06/03/20 08:00 06/05/20 10:43 Glucophage Xr PO 1,000 mg QDDIAB BENJAMÍN Administration Miscellaneous Medication 234 mg 06/02/20 23:00 Paliperidone Palmitate [Invega Sustenna] IM QMONTH BENJAMÍN Miscellaneous Medication 25 mg 06/03/20 10:00 Synjardy Xr 25-1,000 Mg Tablet PO DAILY BENJAMÍN Olanzapine 50 mg 06/03/20 22:00 06/04/20 22:01 Zyprexa PO 50 mg HS BENJAMÍN Administration Ondansetron HCl 4 mg 06/02/20 22:43 Zofran IV Q8H PRN Nausea And Vomiting Trazodone HCl 100 mg 06/02/20 23:00 Desyrel PO QHS PRN Insomnia
[2020-06-05] MEDS: INSULIN REGULAR, HUMAN 100 UNIT/ML 3ML VIAL SUB-Q SCH ×3 (10:41→17:31)
[2020-06-05] MEDS: metFORMIN XR 500MG TAB PO SCH (10:43)
[2020-06-05] MEDS: DIVALPROEX DR 500 MG TAB PO SCH ×2 (10:49→22:55)
[2020-06-05] MEDS: ASPIRIN EC 81 MG TAB PO SCH (10:49)
--- NOTE | 2020-06-05 14:05 | Consultation ---
History of Present Illness Consult date: 06/05/20 Reason for Consult: Altered mental status Chief complaint: Altered mental status History of present illness: Patient is a 69 y/o man w/ a h/o schizophrenia, HTN, DM, CAD, HLD, h/o substance abuse. He was initially admitted on 05/27/20 w/ symptoms of altered mental status. Head CT, CTA head/neck, and MRI brain during that admission were unremarkable. His mental status had improved, and he was discharged on 06/01/20. Patient presented once again on 06/02/20, with symptoms of altered mental status. He initially was obtunded, and then woke up in the ER and was talking once again. He was found to have elevated creatinine and lactic acidosis. Past History Past Medical History: acute NE, diabetes, hypertension, other (Scizophrenia) Past Surgical History: Other (Open heart surgery) Social history: smoking Family history: no significant family history Medications and Allergies Allergies Allergy/AdvReac Type Severity Reaction Status Date / Time No Known Allergies Allergy Unverified 05/19/18 03:32 Home Medications Medication Instructions Recorded Confirmed Last Taken Type Paliperidone Palmitate [Invega 234 mg IM QMONTH 07/03/18 06/03/20 06/13/18 History Sustenna] traZODone [Desyrel] 2 tab PO QHS PRN 07/03/18 06/03/20 07/02/18 History Aspirin [Adult Aspirin] 81 mg PO DAILY 05/27/20 06/03/20 Unknown History Atorvastatin [Lipitor] 40 mg PO QHS 05/27/20 06/03/20 Unknown History Divalproex [Luis Penaloza] 500 mg PO BID 05/27/20 06/03/20 Unknown History Gabapentin 300 mg PO HS 05/27/20 06/03/20 Unknown History Insulin Detemir [Levemir Flextouch] 22 unit SQ HS 05/27/20 06/03/20 Unknown Hist ory Meloxicam [Mobic] 7.5 mg PO QDAY 05/27/20 06/03/20 Unknown History OLANZapine [Zyprexa] 50 mg PO HS 05/27/20 06/03/20 Unknown History Synjardy Xr 25-1,000 mg Tablet 25 mg PO DAILY 08/08/20 08/15/20 Unknown History glyBURIDE [Diabeta] 10 mg PO BID 05/27/20 06/03/20 Unknown History hydrALAZINE [Apresoline TAB] 25 mg PO Q8HR #90 tablet 06/01/20 06/03/20 Unknown Rx Active Meds: Active Medications Acetaminophen (Tylenol) 650 mg PO Q4H PRN PRN Reason: Fever >101 Aspirin (Halfprin Ec) 81 mg PO DAILY [facility] Last Admin: 06/05/20 10:49 Dose: 81 mg Documented by: Atorvastatin Calcium (Lipitor) 40 mg PO QHS [facility] Last Admin: 06/04/20 22:50 Dose: 40 mg Documented by: Dextrose (D50w (25gm) Syringe) 50 ml IV Q30MIN PRN; Protocol PRN Reason: Hypoglycemia Divalproex Sodium (Depakote Dr) 500 mg PO BID [facility] Last Admin: 06/05/20 10:49 Dose: 500 mg Documented by: Enoxaparin Sodium (Enoxaparin) 40 mg SUB-Q QDAY@2200 BENJAMÍN Hydralazine HCl (Apresoline) 25 mg PO Q8HR [facility] Last Admin: 06/05/20 06:06 Dose: 25 mg Documented by: Sodium Chloride (Nacl 0.9% 1000 Ml) 1,000 mls @ 75 mls/hr IV DIRECT [facility] Last Admin: 06/04/20 06:12 Dose: 75 mls/hr Documented by: Insulin Glargine (Lantus) 22 units SUB-Q [facility] Last Admin: 06/04/20 23:51 Dose: 22 units Documented by: Insulin Human [facility]pro [facility]) [facility]; Protocol Last Admin: 06/04/20 22:02 Dose: 3 unit Documented by: Insulin Human Regular (Humulin R) 0 unit SUB-Q [facility]; Protocol Last Admin: 06/05/20 10:41 Dose: 3 unit Documented by: Metformin HCl (Glucophage Xr) 1,000 mg PO QDDIAB [facility] Last Admin: 06/05/20 10:43 Dose: 1,000 mg Documented by: Miscellaneous Medication (Paliperidone Palmitate [Invega Sustenna]) 234 mg IM QMONTH [facility] Miscellaneous Medication (Synjardy Xr 25-1,000 Mg Tablet) 25 mg PO DAILY [facility] Olanzapine (Zyprexa) 50 mg PO HS [facility] Last Admin: 06/04/20 22:01 Dose: 50 mg Documented by: Ondansetron HCl (Zofran) 4 mg IV Q8H PRN PRN Reason: Nausea And Vomiting Trazodone HCl (Desyrel) 100 mg PO QHS PRN PRN Reason: Insomnia Review of Systems All systems: negative Neurological: change in mentation Physical Examination - Vital Signs Vital Signs: Vital Signs Temp Pulse Resp BP Pulse Ox 95.7 F L 72 16 147/70 98 06/02/20 19:59 06/02/20 19:59 06/02/20 19:59 06/02/20 19:59 06/02/20 19:59 - Physical Exam Narrative exam: Patient is alert, awake, oriented x4, follows complex commands. No dysarthria or aphasia noted. PERRL, EOMI, VFF, tongue midline, bilaterally intact to LT, no facial weakness noted. 5/5 strength in all extremities. Bilaterally intact light touch. Bilaterally intact to FTN and HTS. Results - Laboratory Findings CBC and BMP: 06/02/20 19:59 06/05/20 03:51 Abnormal Lab Findings: Abnormal Labs 06/02/20 06/02/20 06/02/20 19:59 19:59 19:59 WBC 4.2 L RDW 15.5 H Plt Count 131 L [place] % (Auto) 14.0 H BUN 23 H Creatinine Glucose 464 H POC Glucose Hemoglobin A1c Lactic Acid 2.30 H* TSH Salicylates Acetaminophen 06/02/20 06/02/20 06/02/20 19:59 19:59 19:59 WBC RDW Plt Count [place] % (Auto) BUN Creatinine Glucose POC Glucose Hemoglobin A1c Lactic Acid TSH 5.020 H Salicylates < 0.3 L Acetaminophen 5.0 L 06/03/20 06/03/20 06/03/20 00:40 02:44 12:00 WBC RDW Plt Count [place] % (Auto) BUN Creatinine Glucose POC Glucose 171 H 185 H 252 H Hemoglobin A1c Lactic Acid TSH Salicylates Acetaminophen 06/03/20 06/03/20 06/03/20 13:56 16:00 17:56 WBC RDW Plt Count [place] % (Auto) BUN Creatinine Glucose POC Glucose 327 H 285 H Hemoglobin A1c 8.9 H Lactic Acid TSH Salicylates Acetaminophen 08/06/04/20 06/04/20 22:29 08:13 12:47 WBC RDW Plt Count [place] % (Auto) BUN Creatinine Glucose POC Glucose 314 H 156 H 242 H Hemoglobin A1c Lactic Acid TSH Salicylates Acetaminophen 06/04/20 06/04/20 06/05/20 16:59 22:02 03:51 WBC RDW Plt Count [place] % (Auto) BUN Creatinine 0.7 L Glucose 233 H POC Glucose 250 H 294 H Hemoglobin A1c Lactic Acid TSH Salicylates Acetaminophen 06/05/20 06/05/20 09:02 12:08 WBC RDW Plt Count [place] % (Auto) BUN Creatinine Glucose POC Glucose 254 H 239 H Hemoglobin A1c Lactic Acid TSH Salicylates Acetaminophen Assessment and Plan Patient is a 69 y/o man w/ a h/o schizophrenia, HTN, DM, CAD, HLD, h/o substance abuse, who p/w altered mental status. According to the patient's clinical findings, it is likely that he had metabolic encephalopathy, which may have been due to lactic acidosis and elevated creatinine. Plan: 1. Metabolic encephalopathy" - CT head: No acute abnormalities. - Patient is now back to baseline of mental status. - MRI brain: done on recent admission, no acute abnormalities. - Considering that this is patient's second episode in one week of altered mental status, would recommend EEG, however EEG is not currently being performed at [facility], therefore recommend for it to be done as outpatient in neurology clinic. - Continue to correct metabolic abnormalities per primary team. - Recommend for patient to follow up with neurology as outpatient in 2-3 weeks. - Will sign off, as patient is now back to baseline of mental status. Please call with any questions. Thank you for allowing me to take part in the care of this patient. Severino Cruz MD Neurology This clinical encounter was provided via live telemedicine platform. Consultative service was provided for neurology to support local providers. The Acute Teleneurology team should be contacted with any neurologic worsening or clinical changes, new test results, or new patient history that is reported to or discovered by the local team following completion of the teleneurology consul tation, specifically that which has the potential to impact the consultative recommendations. Patient/Family was informed the Neurology Consult would happen via TeleHealth consult by way of interactive audio and video telecommunications and consented to receiving care in this manner. Due to the potential for life-threatening deterioration due to underlying neurologic illness, and limited resources available for patient care, telemedicine was used as means of patient care. Telemedicine consultation is limited in the extent of physical exam that can be virtually provided. Time spent evaluating patient includes time for face to face visit via telemedicine, review of medical records, imaging studies and discussion of findings with providers, the patient and/or family.
[2020-06-05] MEDS: SODIUM CHLORIDE 0.9% 1000 ML 1,000 ML IV SCH (15:04)
[2020-06-05] MEDS: ENOXAPARIN 40 MG/0.4 ML INJ SUB-Q SCH (22:55)
[2020-06-05] MEDS: INSULIN LISPRO 100 UNIT/ML VIAL 3 mL SUB-Q SCH (22:57)
[2020-06-05] MEDS: INSULIN GLARGINE 100 UNITS/ML SUB-Q SCH (22:57)
[2020-06-06] MEDS: SODIUM CHLORIDE 0.9% 1000 ML 1,000 ML IV SCH (04:04)
[2020-06-06] MEDS: hydrALAZINE 25 MG TAB PO SCH ×4 (05:45→22:18)
[2020-06-06 06:20] LABS: Hemoglobin 13.9 gm/dl (11.8-15.2); Mean Corpuscular HGB Conc 34 % (32-34); Mean Corpuscular Volume 92 fl (84-94); Platelet Count 148 K/mm3 (140-440); Red Blood Count 4.46 M/mm3 (3.65-5.03); Red Cell Distribution Width 15.1 % (13.2-15.2)
[2020-06-06] MEDS: INSULIN REGULAR, HUMAN 100 UNIT/ML 3ML VIAL SUB-Q SCH ×3 (08:37→19:26)
[2020-06-06] MEDS ORDERED: LISINOPRIL 5 MG TAB PO SCH (10:00)
[2020-06-06] MEDS ORDERED: LISINOPRIL 10 MG TAB PO SCH ×2 (10:00)
[2020-06-06] MEDS: metFORMIN XR 500MG TAB PO SCH (10:00)
[2020-06-06] MEDS: ASPIRIN EC 81 MG TAB PO SCH (10:30)
--- NOTE | 2020-06-06 10:47 | Progress Note ---
Assessment and Plan - Patient Problems (1) RUDY (acute kidney injury) Current Visit: Yes Status: Acute Plan to address problem: - Admit Cr 1.1 which has trended down to 0.7 - Likely secondary to vasomotor nephropathy (2) Acute metabolic encephalopathy Current Visit: Yes Status: Acute Plan to address problem: - Unclear etiology - History of schizophrenia and he is on olanzapine and valproic acid - UA (-), UC NGTD - Patient seems to be back to his baseline - Neurology recommend for patient to follow up with neurology as outpatient in 2-3 weeks for EEG monitoring and has signed off at this time (3) Schizophrenia Current Visit: Yes Status: Chronic Plan to address problem: - Continue Depakote, Invega, and Zyprexa - 06/05 valproic acid level 68 - MH consulted does not recommend inpatient psych at this time - CM for placement as family member voiced safety concern in current living situation - PT home health with PT or skilled placement (4) Diabetes Current Visit: Yes Status: Chronic Plan to address problem: - SSI - Accucheck ACHS - CC diet - Lantus 22 units HS - Metformin 1000mg BID (5) Hypertension Current Visit: No Status: Chronic Qualifiers: Hypertension type: essential hypertension Qualified Code(s): I10 - Essential (primary) hypertension Plan to address problem: - Restarted Lisinopril and Hydralazine - 06/06 increased lisinopril - BP monitoring per protocol (6) Tobacco abuse Current Visit: Yes Status: Acute Plan to address problem: - Smoking cessation counseling (7) DVT prophylaxis Current Visit: Yes Status: Acute Plan to address problem: - SDCs to BLE while in bed - Lovenox sub q History Interval history: This is a 69 year old male with schizophreni, diabetes mellitus, [place] s/p PCI/cardiac stents and current smoker who presents with altered mental status. Patient was discharged on 06/01 from this hospital after admission for altered mental status. On 06/02 patient was conversant and ambulatory in the morning however on presentation he was only responding to noxious stimuli. According to EMS, BG 538. He was admitted with acute metabolic encephalopathy. Of note on recent admission he presented with AMS and an acute CVA was ruled out. CM wo rking on discharge. Patient states that he would like to go home however his niece voiced concern about safety at home to the case finisher yesterday. niece is awaiting [facility] evaluations at this time. 06/03: MH consult: Do not recommend acute inpatient psychiatric treatment at this time, PT consulted for eval and CM for placement. 06/04: BC, UA (-), stopped abx 06/05: PT recommends HHS vs Skilled placement. Neurology recommends for patient to follow up with neurology as outpatient in 2-3 weeks for EEG monitoring and has signed off at this time. Hospitalist Physical - Constitutional Vitals: Temp Pulse Resp BP Pulse Ox 98.4 F 64 18 183/78 98 06/06/20 08:28 06/06/20 08:28 06/06/20 08:28 06/06/20 08:28 06/06/20 08:28 General appearance: Present: no acute distress, other (Lethargic) - EENT Eyes: Present: PERRL ENT: hearing intact - Neck Neck: Present: normal ROM - Respiratory Respiratory effort: normal Respiratory: bilateral: CTA - Cardiovascular Rhythm: regular Heart Sounds: Present: S1 & S2. Absent: systolic murmur, diastolic murmur - Extremities Extremities: no ischemia, pulses intact, pulses symmetrical, No edema, normal temperature, normal color Peripheral Pulses: within normal limits - Abdominal General gastrointestinal: soft, non-distended, normal bowel sounds - Integumentary Integumentary: Present: clear, warm, dry - Psychiatric Psychiatric: cooperative - Neurologic Neurologic: no focal deficits - Allied Health Allied health notes reviewed: nursing, PT, social work, case management HEART Score - HEART Score Age: > 65 Risk factors: > 3 risk factors or hx of atherosclerotic disease Troponin: Troponin T < 0.010 ng/mL (0.00-0.029) 06/03/20 18:22 - Critical Actions Critical Actions: 0-3 pts:0.9-1.7%risk of adverse cardiac event.Candidate for discharge Results - Labs CBC & Chem 7: 06/06/20 05:57 06/05/20 03:51 Labs: Laboratory Last Values WBC 5.1 K/mm3 (4.5-11.0) 06/06/20 05:57 RBC 4.46 M/mm3 (3.65-5.03) 06/06/20 05:57 Hgb 13.9 gm/dl (11.8-15.2) 06/06/20 05:57 Hct 41.0 % (35.5-45.6) 06/06/20 05:57 MCV 92 fl (84-94) 06/06/20 05:57 MCH 31 pg (28-32) 06/06/20 05:57 MCHC 34 % (32-34) 06/06/20 05:57 RDW 15.1 % (13.2-15.2) 06/06/20 05:57 Plt Count 148 K/mm3 (140-440) 06/06/20 05:57 Lymph % (Auto) 28.2 % (13.4-35.0) 06/02/20 19:59 [place] % (Auto) 14.0 % (0.0-7.3) H 06/02/20 19:59 Eos % (Auto) 1.0 % (0.0-4.3) 06/02/20 19:59 Baso % (Auto) 0.5 % (0.0-1.8) 06/02/20 19:59 Lymph # 1.2 K/mm3 (1.2-5.4) 06/02/20 19:59 [place] # 0.6 K/mm3 (0.0-0.8) 06/02/20 19:59 Eos # 0.0 K/mm3 (0.0-0.4) 06/02/20 19:59 Baso # 0.0 K/mm3 (0.0-0.1) 06/02/20 19:59 Seg Neutrophils % 56.3 % (40.0-70.0) 06/02/20 19:59 Seg Neutrophils # 2.4 K/mm3 (1.8-7.7) 06/02/20 19:59 PT 13.7 Sec. (12.2-14.9) 06/02/20 19:59 INR 1.04 (0.87-1.13) 06/02/20 19:59 APTT 26.2 Sec. (24.2-36.6) 06/02/20 19:59 Sodium 141 mmol/L (137-145) 06/05/20 03:51 Potassium 3.8 mmol/L (3.6-5.0) 06/05/20 03:51 Chloride 105.8 mmol/L (98-107) 06/05/20 03:51 Carbon Dioxide 25 mmol/L (22-30) 06/05/20 03:51 Anion Gap 14 mmol/L 06/05/20 03:51 BUN 12 mg/dL (9-20) 06/05/20 03:51 Creatinine 0.7 mg/dL (0.8-1.3) L 06/05/20 03:51 Estimated GFR > 60 ml/min 06/05/20 03:51 BUN/Creatinine Ratio 17 % 06/05/20 03:51 Glucose 233 mg/dL (75-100) H 06/05/20 03:51 POC Glucose 134 (70-105) H 06/06/20 06:05 Hemoglobin A1c 8.9 % (4-6) H 06/03/20 13:56 Lactic Acid 2.30 mmol/L (0.7-2.0) H* 06/02/20 19:59 Calcium 8.8 mg/dL (8.4-10.2) 06/05/20 03:51 Total Bilirubin 0.20 mg/dL (0.1-1.2) 06/02/20 19:59 AST 21 units/L (5-40) 06/02/20 19:59 ALT 28 units/L (7-56) 06/02/20 19:59 Alkaline Phosphatase 56 units/L (35-129) 06/02/20 19:59 Troponin T < 0.010 ng/mL (0.00-0.029) 06/03/20 18:22 Total Protein 6.9 g/dL (6.3-8.2) 06/02/20 19:59 Albumin 4.0 g/dL (3.9-5) 06/02/20 19:59 Albumin/Globulin Ratio 1.4 % 06/02/20 19:59 TSH 5.020 mlU/mL (0.270-4.200) H 06/02/20 19:59 Thyroxine (T4) 6.0 ug/dL (4.0-12.0) 06/03/20 07:49 Urine Color Straw (Yellow) 06/03/20 00:33 Urine Turbidity Clear (Clear) 06/03/20 00:33 Urine pH 6.0 (5.0-7.0) 06/03/20 00:33 Ur Specific [place] 1.028 (1.003-1.030) 06/03/20 00:33 Urine Protein <15 mg/dl mg/dL (Negative) 06/03/20 00:33 Urine Glucose (UA) >=500 mg/dL (Negative) 06/03/20 00:33 Urine Ketones Tr mg/dL (Negative) 06/03/20 00:33 Urine Blood Neg (Negative) 06/03/20 00:33 Urine Nitrite Neg (Negative) 06/03/20 00:33 Urine Bilirubin Neg (Negative) 06/03/20 00:33 Urine Urobilinogen < 2.0 mg/dL (<2.0) 06/03/20 00:33 Ur Leukocyte Esterase Neg (Negative) 06/03/20 00:33 Urine WBC (Auto) 1.0 /HPF (0.0-6.0) 06/03/20 00:33 Urine RBC (Auto) 1.0 /HPF (0.0-6.0) 06/03/20 00:33 Urine Bacteria (Auto) 1+ /HPF (Negative) 06/03/20 00:33 Urine Mucus Few /HPF 06/03/20 00:33 Salicylates < 0.3 mg/dL (2.8-20.0) L 06/02/20 19:59 Urine Opiates Screen Presumptive negative 06/03/20 00:33 Urine Methadone Screen Presumptive negative 06/03/20 00:33 Acetaminophen 5.0 ug/mL (10.0-30.0) L 06/02/20 19:59 Ur Barbiturates Screen Presumptive negative 06/03/20 00:33 Valproic Acid 68.4 ug/mL (50-100) 06/04/20 14:11 Ur Phencyclidine Scrn Presumptive negative 06/03/20 00:33 Ur Amphetamines Screen Presumptive negative 06/03/20 00:33 U Benzodiazepines Scrn Presumptive negative 06/03/20 00:33 Urine Cocaine Screen Presumptive negative 06/03/20 00:33 U Marijuana (THC) Screen Presumptive negative 06/03/20 00:33 Drugs of Abuse Note Disclamer 06/03/20 00:33 Plasma/Serum Alcohol < 0.01 % (0-0.07) 06/02/20 19:59 Microbiology: Microbiology 06/03/20 00:33 Urine,Clean Catch Urine Culture - Final NO GROWTH AFTER 48 HOURS [place]/IV: Voiding Method Condom Catheter IV Catheter Type [Right INT / Saline Lock Forearm] Active Medications - Current Medications Current Medications: Generic Name Dose Route Start Last Admin Trade Name Freq PRN Reason Stop Dose Admin Acetaminophen 650 mg 06/02/20 22:43 Tylenol PO Q4H PRN Fever >101 Aspirin 81 mg 06/03/20 10:00 06/05/20 10:49 Halfprin Ec PO 81 mg DAILY BENJAMÍN Administration Atorvastatin Calcium 40 mg 06/03/20 22:00 06/05/20 22:55 Lipitor PO 40 mg QHS BENJAMÍN Administration Dextrose 50 ml 06/02/20 22:39 D50w (25gm) Syringe IV Q30MIN PRN Hypoglycemia Protocol Divalproex Sodium 500 mg 06/03/20 10:00 06/05/20 22:[address] PO 500 mg BID BENJAMÍN Administration Enoxaparin Sodium 40 mg 06/05/20 22:00 06/05/20 22:55 Enoxaparin SUB-Q 40 mg QDAY@2200 BENJAMÍN Administration Hydralazine HCl 50 mg 06/06/20 10:00 Apresoline PO Q8HR [facility] Sodium Chloride 1,000 mls @ 75 mls/hr 06/02/20 23:00 06/06/20 04:04 Nacl 0.9% 1000 Ml IV 75 mls/hr DIRECT [facility] Administration Insulin Glargine 26 units 06/05/20 22:00 06/05/20 22:57 Lantus SUB-Q Not Given [facility] Insulin Human Lispro 0 unit 06/03/20 22:00 06/05/20 22:57 [facility]Q [facility] Protocol Insulin Human Regular 0 unit 06/03/20 07:30 06/06/20 08:37 Humulin R SUB-Q Not Given AC [facility] Protocol Lisinopril 5 mg 06/06/20 10:00 Zestril PO QDAY BENJAMÍN Metformin HCl 1,000 mg 06/03/20 08:00 06/05/20 10:43 Glucophage Xr PO 1,000 mg QDDIAB [facility] Administration Miscellaneous Medication 234 mg 06/02/20 23:00 Paliperidone Palmitate [Invega Sustenna] IM QMONTH [facility] Miscellaneous Medication 25 mg 06/03/20 10:00 Synjardy Xr 25-1,000 Mg Tablet PO DAILY BENJAMÍN Olanzapine 50 mg 06/03/20 22:00 06/05/20 22:56 Zyprexa PO 50 mg HS BENJAMÍN Administration Ondansetron HCl 4 mg 06/02/20 22:43 Zofran IV Q8H PRN Nausea And Vomiting Trazodone HCl 100 mg 06/02/20 23:00 Desyrel PO QHS PRN Insomnia
[2020-06-06] MEDS: DIVALPROEX DR 500 MG TAB PO SCH ×2 (14:00→22:31)
[2020-06-06] MEDS: INSULIN GLARGINE 100 UNITS/ML SUB-Q SCH (22:18)
[2020-06-06] MEDS: INSULIN LISPRO 100 UNIT/ML VIAL 3 mL SUB-Q SCH (22:18)
[2020-06-06] MEDS: ENOXAPARIN 40 MG/0.4 ML INJ SUB-Q SCH (22:19)
[2020-06-07] MEDS: hydrALAZINE 25 MG TAB PO SCH ×3 (05:45→23:10)
[2020-06-07] MEDS: INSULIN REGULAR, HUMAN 100 UNIT/ML 3ML VIAL SUB-Q SCH ×3 (09:06→17:55)
[2020-06-07] MEDS: LISINOPRIL 10 MG TAB PO SCH (09:07)
[2020-06-07] MEDS: ASPIRIN EC 81 MG TAB PO SCH (09:07)
[2020-06-07] MEDS: metFORMIN XR 500MG TAB PO SCH (09:07)
[2020-06-07] MEDS: DIVALPROEX DR 500 MG TAB PO SCH ×2 (09:07→23:09)
--- NOTE | 2020-06-07 11:45 | Progress Note ---
Assessment and Plan - Patient Problems (1) RUDY (acute kidney injury) Current Visit: Yes Status: Resolved Plan to address problem: - Admit Cr 1.1 which has trended down to 0.7 - Likely secondary to vasomotor nephropathy (2) Acute metabolic encephalopathy Current Visit: Yes Status: Resolved Plan to address problem: - Unclear etiology - History of schizophrenia and he is on olanzapine and valproic acid - UA (-), UC NGTD - Patient seems to be back to his baseline - Neurology recommend for patient to follow up with neurology as outpatient in 2-3 weeks for EEG monitoring and has signed off at this time (3) Schizophrenia Current Visit: Yes Status: Chronic Plan to address problem: - Continue Depakote, Invega, and Zyprexa - 06/05 valproic acid level 68 - MH consulted does not recommend inpatient psych at this time - CM for placement as family member voiced safety concern in current living situation - PT home health with PT or skilled placement (4) Diabetes Current Visit: Yes Status: Chronic Plan to address problem: - SSI - Accucheck ACHS - CC diet - Lantus 22 units HS - Metformin 1000mg BID (5) Hypertension Current Visit: No Status: Chronic Qualifiers: Hypertension type: essential hypertension Qualified Code(s): I10 - Essentia l (primary) hypertension Plan to address problem: - Restarted Lisinopril and Hydralazine - 06/06 increased lisinopril - BP monitoring per protocol (6) Tobacco abuse Current Visit: Yes Status: Chronic Plan to address problem: - Smoking cessation counseling (7) DVT prophylaxis Current Visit: Yes Status: Acute Plan to address problem: - SDCs to BLE while in bed - Lovenox sub q History Interval history: This is a 69 year old male with schizophreni, diabetes mellitus, [place] s/p PCI/cardiac stents and current smoker who presents with altered mental status. Patient was discharged on 06/01 from this hospital after admission for altered mental status. On 06/02 patient was conversant and ambulatory in the morning however on presentation he was only responding to noxious stimuli. According to EMS, BG 538. He was admitted with acute metabolic encephalopathy. Of note on recent admission he presented with AMS and an acute CVA was ruled out. CM working on discharge. This morning he states he needs coffee, informed of nieces request for [facility] placement and he states he will converse with her personally. PT recommends SNF placement, telehealth case manager is working on placement. 06/03: MH consult: Do not recommend acute inpatient psychiatric treatment at this time, PT consulted for eval and CM for placement. 06/04: BC, UA (-), stopped abx 06/05: PT recommends skilled PT services. Neurology recommends for patient to follow up with neurology as outpatient in 2-3 weeks for EEG monitoring and has signed off at this time. 06/06: Awaiting [facility] evaluations at this time. 06/07: PT recommends SNF placement, telehealth case manager is working on placement Hospitalist Physical - Constitutional Vitals: Temp Pulse Resp BP Pulse Ox 98.7 F 85 18 168/86 98 06/07/20 08:13 06/07/20 08:13 06/07/20 09:40 06/07/20 08:13 06/07/20 09:40 General appearance: Present: no acute distress, other (Lethargic) - EENT Eyes: Present: PERRL ENT: hearing intact - Neck Neck: Present: normal ROM - Respiratory Respiratory effort: normal Respiratory: bilateral: CTA - Cardiovascular Rhythm: regular Heart Sounds: Present: S1 & S2. Absent: systolic murmur, diastolic murmur - Extremities Extremities: no ischemia, pulses intact, pulses symmetrical, No edema, normal temperature, normal color, Full ROM Peripheral Pulses: within normal limits - Abdominal General gastrointestinal: soft, non-tender, non-distended, normal bowel sounds - Integumentary Integumentary: Present: clear, warm, dry - Psychiatric Psychiatric: cooperative - Neurologic Neurologic: no focal deficits, moves all extremities - Allied Health Allied health notes reviewed: nursing, social work, case management HEART Score - HEART Score Age: > 65 Risk factors: > 3 risk factors or hx of atherosclerotic disease Troponin: Troponin T < 0.010 ng/mL (0.00-0.029) 06/03/20 18:22 - Critical Actions Critical Actions: 0-3 pts:0.9-1.7%risk of adverse cardiac event.Candidate for discharge Results - Labs CBC & Chem 7: 06/06/20 05:57 06/05/20 03:51 Labs: Laboratory Last Values WBC 5.1 K/mm3 (4.5-11.0) 06/06/20 05:57 RBC 4.46 M/mm3 (3.65-5.03) 06/06/20 05:57 Hgb 13.9 gm/dl (11.8-15.2) 06/06/20 05:57 Hct 41.0 % (35.5-45.6) 06/06/20 05:57 MCV 92 fl (84-94) 06/06/20 05:57 MCH 31 pg (28-32) 06/06/20 05:57 MCHC 34 % (32-34) 06/06/20 05:57 RDW 15.1 % (13.2-15.2) 06/06/20 05:57 Plt Count 148 K/mm3 (140-440) 06/06/20 05:57 Lymph % (Auto) 28.2 % (13.4-35.0) 06/02/20 19:59 [place] % (Auto) 14.0 % (0.0-7.3) H 06/02/20 19:59 Eos % (Auto) 1.0 % (0.0-4.3) 06/02/20 19:59 Baso % (Auto) 0.5 % (0.0-1.8) 06/02/20 19:59 Lymph # 1.2 K/mm3 (1.2-5.4) 06/02/20 19:59 [place] # 0.6 K/mm3 (0.0-0.8) 06/02/20 19:59 Eos # 0.0 K/mm3 (0.0-0.4) 06/02/20 19:59 Baso # 0.0 K/mm3 (0.0-0.1) 06/02/20 19:59 Seg Neutrophils % 56.3 % (40.0-70.0) 06/02/20 19:59 Seg Neutrophils # 2.4 K/mm3 (1.8-7.7) 06/02/20 19:59 PT 13.7 Sec. (12.2-14.9) 06/02/20 19:59 INR 1.04 (0.87-1.13) 06/02/20 19:59 APTT 26.2 Sec. (24.2-36.6) 06/02/20 19:59 Sodium 141 mmol/L (137-145) 06/05/20 03:51 Potassium 3.8 mmol/L (3.6-5.0) 06/05/20 03:51 Chloride 105.8 mmol/L (98-107) 06/05/20 03:51 Carbon Dioxide 25 mmol/L (22-30) 06/05/20 03:51 Anion Gap 14 mmol/L 06/05/20 03:51 BUN 12 mg/dL (9-20) 06/05/20 03:51 Creatinine 0.7 mg/dL (0.8-1.3) L 06/05/20 03:51 Estimated GFR > 60 ml/min 06/05/20 03:51 BUN/Creatinine Ratio 17 % 06/05/20 03:51 Glucose 233 mg/dL (75-100) H 06/05/20 03:51 POC Glucose 193 (70-105) H 06/07/20 08:31 Hemoglobin A1c 8.9 % (4-6) H 06/03/20 13:56 Lactic Acid 2.30 mmol/L (0.7-2.0) H* 06/02/20 19:59 Calcium 8.8 mg/dL (8.4-10.2) 06/05/20 03:51 Total Bilirubin 0.20 mg/dL (0.1-1.2) 06/02/20 19:59 AST 21 units/L (5-40) 06/02/20 19:59 ALT 28 units/L (7-56) 06/02/20 19:59 Alkaline Phosphatase 56 units/L (35-129) 06/02/20 19:59 Troponin T < 0.010 ng/mL (0.00-0.029) 06/03/20 18:22 Total Protein 6.9 g/dL (6.3-8.2) 06/02/20 19:59 Albumin 4.0 g/dL (3.9-5) 06/02/20 19:59 Albumin/Globulin Ratio 1.4 % 06/02/20 19:59 TSH 5.020 mlU/mL (0.270-4.200) H 06/02/20 19:59 Thyroxine (T4) 6.0 ug/dL (4.0-12.0) 06/03/20 07:49 Urine Color Straw (Yellow) 06/03/20 00:33 Urine Turbidity Clear (Clear) 06/03/20 00:33 Urine pH 6.0 (5.0-7.0) 06/03/20 00:33 Ur Specific [place] 1.028 (1.003-1.030) 06/03/20 00:33 Urine Protein <15 mg/dl mg/dL (Negative) 06/03/20 00:33 Urine Glucose (UA) >=500 mg/dL (Negative) 06/03/20 00:33 Urine Ketones Tr mg/dL (Negative) 06/03/20 00:33 Urine Blood Neg (Negative) 06/03/20 00:33 Urine Nitrite Neg (Negative) 06/03/20 00:33 Urine Bilirubin Neg (Negative) 06/03/20 00:33 Urine Urobilinogen < 2.0 mg/dL (<2.0) 06/03/20 00:33 Ur Leukocyte Esterase Neg (Negative) 06/03/20 00:33 Urine WBC (Auto) 1.0 /HPF (0.0-6.0) 06/03/20 00:33 Urine RBC (Auto) 1.0 /HPF (0.0-6.0) 06/03/20 00:33 Urine Bacteria (Auto) 1+ /HPF (Negative) 06/03/20 00:33 Urine Mucus Few /HPF 06/03/20 00:33 Salicylates < 0.3 mg/dL (2.8-20.0) L 06/02/20 19:59 Urine Opiates Screen Presumptive negative 06/03/20 00:33 Urine Methadone Screen Presumptive negative 06/03/20 00:33 Acetaminophen 5.0 ug/mL (10.0-30.0) L 06/02/20 19:59 Ur Barbiturates Screen Presumptive negative 06/03/20 00:33 Valproic Acid 68.4 ug/mL (50-100) 06/04/20 14:11 Ur Phencyclidine Scrn Presumptive negative 06/03/20 00:33 Ur Amphetamines Screen Presumptive negative 06/03/20 00:33 U Benzodiazepines Scrn Presumptive negative 06/03/20 00:33 Urine Cocaine Screen Presumptive negative 06/03/20 00:33 U Marijuana (THC) Screen Presumptive negative 06/03/20 00:33 Drugs of Abuse Note Disclamer 06/03/20 00:33 Plasma/Serum Alcohol < 0.01 % (0-0.07) 06/02/20 19:59 [place]/IV: Voiding Method Condom Catheter IV Catheter Type [Left Wrist] INT / Saline Lock IV Catheter Type [Right INT / Saline Lock Forearm] Active Medications - Current Medications Current Medications: Generic Name Dose Route Start Last Admin Trade Name Freq PRN Reason Stop Dose Admin Acetaminophen 650 mg 06/02/20 22:43 Tylenol PO Q4H PRN Fever >101 Aspirin 81 mg 06/03/20 10:00 06/07/20 09:07 Halfprin Ec PO 81 mg DAILY BENJAMÍN Administration Atorvastatin Calcium 40 mg 06/03/20 22:00 06/06/20 22:18 Lipitor PO 40 mg QHS BENJAMÍN Administration Dextrose 50 ml 06/02/20 22:39 D50w (25gm) Syringe IV Q30MIN PRN Hypoglycemia Protocol Divalproex Sodium 500 mg 06/03/20 10:00 06/07/20 09:[address] PO 500 mg BID BENJAMÍN Administration Enoxaparin Sodium 40 mg 06/05/20 22:00 06/06/20 22:19 Enoxaparin SUB-Q 40 mg QDAY@2200 BENJAMÍN Administration Hydralazine HCl 50 mg 06/06/20 10:00 06/07/20 05:45 Apresoline PO 50 mg Q8HR BENJAMÍN Administration Sodium Chloride 1,000 mls @ 75 mls/hr 06/02/20 23:00 06/06/20 04:04 Nacl 0.9% 1000 Ml IV 75 mls/hr DIRECT BENJAMÍN Administration Insulin Glargine 26 units 06/05/20 22:00 06/06/20 22:18 Lantus SUB-Q Not Given HS [facility] Insulin Human Lispro 0 unit 06/03/20 22:00 06/06/20 22:18 Humalog SUB-Q Not Given QHS [facility] Protocol Insulin Human Regular 0 unit 06/03/20 07:30 06/07/20 09:06 Humulin R SUB-Q 1 unit AC BENJAMÍN Administration Protocol Lisinopril 10 mg 06/07/20 10:00 06/07/20 09:07 Zestril PO 10 mg QDAY BENJAMÍN Administration Metformin HCl 1,000 mg 06/03/20 08:00 06/07/20 09:07 Glucophage Xr PO 1,000 mg QDDIAB BENJAMÍN Administration Miscellaneous Medication 234 mg 06/02/20 23:00 Paliperidone Palmitate [Invega Sustenna] IM QMONTH [facility] Miscellaneous Medication 25 mg 06/03/20 10:00 Synjardy Xr 25-1,000 Mg Tablet PO DAILY [facility] Olanzapine 50 mg 06/03/20 22:00 06/06/20 22:31 Zyprexa PO Not Given HS [facility] Ondansetron HCl 4 mg 06/02/20 22:43 Zofran IV Q8H PRN Nausea And Vomiting Trazodone HCl 100 mg 06/02/20 23:00 Desyrel PO QHS PRN Insomnia
[2020-06-07] MEDS: SODIUM CHLORIDE 0.9% 1000 ML 1,000 ML IV SCH (17:55)
[2020-06-07] MEDS: INSULIN LISPRO 100 UNIT/ML VIAL 3 mL SUB-Q SCH (23:11)
[2020-06-07] MEDS: ENOXAPARIN 40 MG/0.4 ML INJ SUB-Q SCH (23:12)
[2020-06-07] MEDS: INSULIN GLARGINE 100 UNITS/ML SUB-Q SCH (23:12)
[2020-06-08 05:08] LABS: Hematocrit 38.2 % (35.5-45.6); Hemoglobin 13.2 gm/dl (11.8-15.2); Mean Corpuscular HGB Conc 35 % (32-34); Mean Corpuscular Volume 91 fl (84-94); Platelet Count 149 K/mm3 (140-440); Red Cell Distribution Width 15.1 % (13.2-15.2)
[2020-06-08 05:14] LABS: Blood Urea Nitrogen 13 mg/dL (9-20); Hemolysis Index 9
[2020-06-08 05:19] LABS: BUN/Creatinine Ratio 19
[2020-06-08] MEDS: hydrALAZINE 25 MG TAB PO SCH (06:31)
[2020-06-08] MEDS ORDERED: POTASSIUM CHLORIDE ER 20 MEQ TAB PO ONE (08:00)
[2020-06-08] MEDS: INSULIN REGULAR, HUMAN 100 UNIT/ML 3ML VIAL SUB-Q SCH ×3 (09:11→19:28)
[2020-06-08] MEDS: DIVALPROEX DR 500 MG TAB PO SCH ×2 (09:53→23:17)
[2020-06-08] MEDS: LISINOPRIL 10 MG TAB PO SCH (09:55)
[2020-06-08] MEDS: ASPIRIN EC 81 MG TAB PO SCH (09:58)
[2020-06-08] MEDS: metFORMIN XR 500MG TAB PO SCH (09:59)
--- NOTE | 2020-06-08 10:43 | Progress Note ---
Assessment and Plan - Patient Problems (1) RUDY (acute kidney injury) Current Visit: Yes Status: Resolved Plan to address problem: - Admit Cr 1.1 which has trended down to 0.7 - Likely secondary to vasomotor nephropathy (2) Acute metabolic encephalopathy Current Visit: Yes Status: Resolved Plan to address problem: - Unclear etiology - History of schizophrenia and he is on olanzapine and valproic acid - UA (-), UC NGTD - Patient seems to be back to his baseline - Neurology recommend for patient to follow up with neurology as outpatient in 2-3 weeks for EEG monitoring and has signed off at this time (3) Schizophrenia Current Visit: Yes Status: Chronic Plan to address problem: - Continue Depakote, Invega, and Zyprexa - 06/05 valproic acid level 68 - MH consulted does not recommend inpatient psych at this time - CM for placement as family member voiced safety concern in current living situation - PT home health with PT or skilled placement (4) Diabetes Current Visit: Yes Status: Chronic Plan to address problem: - SSI - Accucheck ACHS - CC diet - Lantus 22 units HS - Metformin 1000mg BID (5) Hypertension Current Visit: No Status: Chronic Qualifiers: Hypertension type: essential hypertension Qualified Code(s): I10 - Essentia l (primary) hypertension Plan to address problem: - Restarted Lisinopril and Hydralazine, doses adjusted for persistent HTN - BP monitoring per protocol (6) Tobacco abuse Current Visit: Yes Status: Chronic Plan to address problem: - Smoking cessation counseling (7) DVT prophylaxis Current Visit: Yes Status: Acute Plan to address problem: - SDCs to BLE while in bed - Lovenox sub q History Interval history: This is a 69 year old male with schizophrenia, diabetes mellitus, [place] s/p PCI/cardiac stents and current smoker who presents with altered mental status. Patient was discharged on 06/01 from this hospital after admission for altered mental status. On 06/02 patient was conversant and ambulatory in the morning however on presentation he was only responding to noxious stimuli. According to EMS, BG 538. He was admitted with acute metabolic encephalopathy. Of note on recent admission he presented with AMS and an acute CVA was ruled out. PT recommends SNF placement, bilingual patient support caseworker is working on placement. This morning his BG was 63 at 0751. He was not arousable by the RN and she went to get d50 per the hypoglycemia protocol. He awakened to sternal rub and was given juice to drink. 06/03: MH consult: Do not recommend acute inpatient psychiatric treatment at this time, PT consulted for eval and CM for placement. 06/04: BC, UA (-), stopped abx 06/05: PT recommends skilled PT services. Neurology recommends for patient to fol low up with neurology as outpatient in 2-3 weeks for EEG monitoring and has signed off at this time. 06/06: Awaiting H evaluations at this time. 06/07: PT recommends SNF placement, bilingual patient support caseworker is working on placement Hospitalist Physical - Constitutional Vitals: Temp Pulse Resp BP Pulse Ox 98.8 F 85 20 163/84 99 06/08/20 07:35 06/08/20 10:00 06/08/20 07:35 06/08/20 07:35 06/08/20 07:35 General appearance: Present: no acute distress, other (Lethargic) - EENT Eyes: Present: PERRL ENT: hearing intact - Neck Neck: Present: normal ROM - Respiratory Respiratory effort: normal Respiratory: bilateral: CTA - Cardiovascular Rhythm: regular Heart Sounds: Present: S1 & S2. Absent: systolic murmur, diastolic murmur - Extremities Extremities: no ischemia, pulses intact, pulses symmetrical, No edema, normal temperature, normal color, Full ROM Peripheral Pulses: within normal limits - Abdominal General gastrointestinal: soft, non-tender, non-distended, normal bowel sounds - Integumentary Integumentary: Present: clear, warm, dry - Psychiatric Psychiatric: appropriate mood/affect, cooperative - Neurologic Neurologic: CNII-XII intact, no focal deficits, moves all extremities - Allied Health Allied health notes reviewed: nursing, PT, OT, social work, case management HEART Score - HEART Score Age: > 65 Risk factors: > 3 risk factors or hx of atherosclerotic disease Troponin: Troponin T < 0.010 ng/mL (0.00-0.029) 06/03/20 18:22 - Critical Actions Critical Actions: 0-3 pts:0.9-1.7%risk of adverse cardiac event.Candidate for discharge Results - Labs CBC & Chem 7: 06/08/20 04:16 06/08/20 04:16 Labs: Laboratory Last Values WBC 5.0 K/mm3 (4.5-11.0) 06/08/20 04:16 RBC 4.20 M/mm3 (3.65-5.03) 06/08/20 04:16 Hgb 13.2 gm/dl (11.8-15.2) 06/08/20 04:16 Hct 38.2 % (35.5-45.6) 06/08/20 04:16 MCV 91 fl (84-94) 06/08/20 04:16 MCH 31 pg (28-32) 06/08/20 04:16 MCHC 35 % (32-34) H 06/08/20 04:16 RDW 15.1 % (13.2-15.2) 06/08/20 04:16 Plt Count 149 K/mm3 (140-440) 06/08/20 04:16 Lymph % (Auto) 28.2 % (13.4-35.0) 06/02/20 19:59 [place] % (Auto) 14.0 % (0.0-7.3) H 06/02/20 19:59 Eos % (Auto) 1.0 % (0.0-4.3) 06/02/20 19:59 Baso % (Auto) 0.5 % (0.0-1.8) 06/02/20 19:59 Lymph # 1.2 K/mm3 (1.2-5.4) 06/02/20 19:59 [place] # 0.6 K/mm3 (0.0-0.8) 06/02/20 19:59 Eos # 0.0 K/mm3 (0.0-0.4) 06/02/20 19:59 Baso # 0.0 K/mm3 (0.0-0.1) 06/02/20 19:59 Seg Neutrophils % 56.3 % (40.0-70.0) 06/02/20 19:59 Seg Neutrophils # 2.4 K/mm3 (1.8-7.7) 06/02/20 19:59 PT 13.7 Sec. (12.2-14.9) 06/02/20 19:59 INR 1.04 (0.87-1.13) 06/02/20 19:59 APTT 26.2 Sec. (24.2-36.6) 06/02/20 19:59 Sodium 147 mmol/L (137-145) H 06/08/20 04:16 Potassium 3.5 mmol/L (3.6-5.0) L 06/08/20 04:16 Chloride 109.9 mmol/L (98-107) H 06/08/20 04:16 Carbon Dioxide 26 mmol/L (22-30) 06/08/20 04:16 Anion Gap 15 mmol/L 06/08/20 04:16 BUN 13 mg/dL (9-20) 06/08/20 04:16 Creatinine 0.7 mg/dL (0.8-1.3) L 06/08/20 04:16 Estimated GFR > 60 ml/min 06/08/20 04:16 BUN/Creatinine Ratio 19 % 06/08/20 04:16 Glucose 98 mg/dL (75-100) 06/08/20 04:16 POC Glucose 63 (70-105) L 06/08/20 07:51 Hemoglobin A1c 8.9 % (4-6) H 06/03/20 13:56 Lactic Acid 2.30 mmol/L (0.7-2.0) H* 06/02/20 19:59 Calcium 9.0 mg/dL (8.4-10.2) 06/08/20 04:16 Total Bilirubin 0.20 mg/dL (0.1-1.2) 06/02/20 19:59 AST 21 units/L (5-40) 06/02/20 19:59 ALT 28 units/L (7-56) 06/02/20 19:59 Alkaline Phosphatase 56 units/L (35-129) 06/02/20 19:59 Troponin T < 0.010 ng/mL (0.00-0.029) 06/03/20 18:22 Total Protein 6.9 g/dL (6.3-8.2) 06/02/20 19:59 Albumin 4.0 g/dL (3.9-5) 06/02/20 19:59 Albumin/Globulin Ratio 1.4 % 06/02/20 19:59 TSH 5.020 mlU/mL (0.270-4.200) H 06/02/20 19:59 Thyroxine (T4) 6.0 ug/dL (4.0-12.0) 06/03/20 07:49 Urine Color Straw (Yellow) 06/03/20 00:33 Urine Turbidity Clear (Clear) 06/03/20 00:33 Urine pH 6.0 (5.0-7.0) 06/03/20 00:33 Ur Specific [place] 1.028 (1.003-1.030) 06/03/20 00:33 Urine Protein <15 mg/dl mg/dL (Negative) 06/03/20 00:33 Urine Glucose (UA) >=500 mg/dL (Negative) 06/03/20 00:33 Urine Ketones Tr mg/dL (Negative) 06/03/20 00:33 Urine Blood Neg (Negative) 06/03/20 00:33 Urine Nitrite Neg (Negative) 06/03/20 00:33 Urine Bilirubin Neg (Negative) 06/03/20 00:33 Urine Urobilinogen < 2.0 mg/dL (<2.0) 06/03/20 00:33 Ur Leukocyte Esterase Neg (Negative) 06/03/20 00:33 Urine WBC (Auto) 1.0 /HPF (0.0-6.0) 06/03/20 00:33 Urine RBC (Auto) 1.0 /HPF (0.0-6.0) 06/03/20 00:33 Urine Bacteria (Auto) 1+ /HPF (Negative) 06/03/20 00:33 Urine Mucus Few /HPF 06/03/20 00:33 Salicylates < 0.3 mg/dL (2.8-20.0) L 06/02/20 19:59 Urine Opiates Screen Presumptive negative 06/03/20 00:33 Urine Methadone Screen Presumptive negative 06/03/20 00:33 Acetaminophen 5.0 ug/mL (10.0-30.0) L 06/02/20 19:59 Ur Barbiturates Screen Presumptive negative 06/03/20 00:33 Valproic Acid 68.4 ug/mL (50-100) 06/04/20 14:11 Ur Phencyclidine Scrn Presumptive negative 06/03/20 00:33 Ur Amphetamines Screen Presumptive negative 06/03/20 00:33 U Benzodiazepines Scrn Presumptive negative 06/03/20 00:33 Urine Cocaine Screen Presumptive negative 06/03/20 00:33 U Marijuana (THC) Screen Presumptive negative 06/03/20 00:33 Drugs of Abuse Note Disclamer 08/15/20 00:33 Plasma/Serum Alcohol < 0.01 % (0-0.07) 06/02/20 19:59 Gardner/IV: Voiding Method Condom Catheter IV Catheter Type [Left Wrist] INT / Saline Lock IV Catheter Type [Right INT / Saline Lock Forearm] Active Medications - Current Medications Current Medications: Generic Name Dose Route Start Last Admin Trade Name Freq PRN Reason Stop Dose Admin Acetaminophen 650 mg 06/02/20 22:43 Tylenol PO Q4H PRN Fever >101 Aspirin 81 mg 06/03/20 10:00 06/08/20 09:58 Halfprin Ec PO 81 mg DAILY BENJAMÍN Administration Atorvastatin Calcium 40 mg 06/03/20 22:00 06/07/20 23:10 Lipitor PO 40 mg QHS BENJAMÍN Administration Dextrose 50 ml 06/02/20 22:39 D50w (25gm) Syringe IV Q30MIN PRN Hypoglycemia Protocol Divalproex Sodium 500 mg 06/03/20 10:00 06/08/20 09:[address] PO 500 mg BID BENJAMÍN Administration Enoxaparin Sodium 40 mg 06/05/20 22:00 06/07/20 23:12 Enoxaparin SUB-Q 40 mg QDAY@2200 BENJAMÍN Administration Hydralazine HCl 50 mg 06/06/20 10:00 06/08/20 06:31 Apresoline PO 50 mg Q8HR BENJAMÍN Administration Sodium Chloride 1,000 mls @ 75 mls/hr 06/02/20 23:00 06/07/20 17:55 Nacl 0.9% 1000 Ml IV 75 mls/hr DIRECT BENJAMÍN Administration Insulin Glargine 26 units 06/05/20 22:00 06/07/20 23:12 Lantus SUB-Q 26 units HS BENJAMÍN Administration Insulin Human Lispro 0 unit 06/03/20 22:00 06/07/20 23:11 Humalog SUB-Q 1 unit QHS BENJAMÍN Administration Protocol Insulin Human Regular 0 unit 06/03/20 07:30 06/08/20 09:11 Humulin R SUB-Q Not Given [facility] Protocol Lisinopril 10 mg 06/07/20 10:00 06/08/20 09:55 Zestril PO 10 mg QDAY BENJAMÍN Administration Metformin HCl 1,000 mg 06/03/20 08:00 06/08/20 09:59 Glucophage Xr PO Not Given QDDIAB [facility] Miscellaneous Medication 234 mg 06/02/20 23:00 Paliperidone Palmitate [Invega Sustenna] IM QMONTH [facility] Miscellaneous Medication 25 mg 06/03/20 10:00 Synjardy Xr 25-1,000 Mg Tablet PO DAILY BENJAMÍN Olanzapine 50 mg 06/03/20 22:00 06/07/20 23:09 Zyprexa PO 50 mg HS BENJAMÍN Administration Ondansetron HCl 4 mg 06/02/20 22:43 Zofran IV Q8H PRN Nausea And Vomiting Trazodone HCl 100 mg 06/02/20 23:00 Desyrel PO QHS PRN Insomnia
[2020-06-08] MEDS ORDERED: hydrALAZINE 25 MG TAB PO SCH (10:49)
[2020-06-08] MEDS: hydrALAZINE 100 MG TAB PO SCH ×3 (14:00→23:18)
[2020-06-08] MEDS: INSULIN LISPRO 100 UNIT/ML VIAL 3 mL SUB-Q SCH (23:15)
[2020-06-08] MEDS: INSULIN GLARGINE 100 UNITS/ML SUB-Q SCH (23:16)
[2020-06-08] MEDS: ENOXAPARIN 40 MG/0.4 ML INJ SUB-Q SCH (23:18)
[2020-06-09] MEDS: hydrALAZINE 100 MG TAB PO SCH ×3 (06:30→23:01)
[2020-06-09] MEDS: INSULIN REGULAR, HUMAN 100 UNIT/ML 3ML VIAL SUB-Q SCH ×3 (08:43→16:00)
[2020-06-09] MEDS: metFORMIN XR 500MG TAB PO SCH (08:44)
[2020-06-09] MEDS: LISINOPRIL 10 MG TAB PO SCH (09:51)
[2020-06-09] MEDS: ASPIRIN EC 81 MG TAB PO SCH (09:52)
[2020-06-09] MEDS: DIVALPROEX DR 500 MG TAB PO SCH ×2 (09:52→23:02)
[2020-06-09 11:57] LABS: Blood Urea Nitrogen 12 mg/dL (9-20); Calcium 9.2 mg/dL (8.4-10.2); Hemolysis Index 37
[2020-06-09 12:01] LABS: BUN/Creatinine Ratio 17
--- NOTE | 2020-06-09 13:25 | Progress Note ---
Assessment and Plan - Patient Problems (1) RUDY (acute kidney injury) Current Visit: Yes Status: Resolved Plan to address problem: - Admit Cr 1.1 which has trended down to 0.7 - Likely secondary to vasomotor nephropathy (2) Acute metabolic encephalopathy Current Visit: Yes Status: Resolved Plan to address problem: - Unclear etiology - History of schizophrenia and he is on olanzapine and valproic acid - UA (-), UC NGTD - Patient seems to be back to his baseline - Neurology recommend for patient to follow up with neurology as outpatient in 2-3 weeks for EEG monitoring and has signed off at this time (3) Schizophrenia Current Visit: Yes Status: Chronic Plan to address problem: - Continue Depakote, Invega, and Zyprexa - 06/05 valproic acid level 68 - MH consulted does not recommend inpatient psych at this time - CM for placement as family member voiced safety concern in current living situation - PT home health with PT or skilled placement (4) Diabetes Current Visit: Yes Status: Chronic Plan to address problem: - SSI - Accucheck ACHS - CC diet - Lantus decreased r/t hypoglycemia in the AM on 06/08 and 06/09 - Metformin 1000mg BID (5) Hypertension Current Visit: No Status: Chronic Qualifiers: Hypertension type: essential hypertension Qualified Code(s): I10 - Essential (primary) hypertension Plan to address problem: - Restarted Lisinopril and Hydralazine, doses adjusted for persistent HTN - BP monitoring per protocol (6) Tobacco abuse Current Visit: Yes Status: Chronic Plan to address problem: - Smoking cessation counseling (7) DVT prophylaxis Current Visit: Yes Status: Acute Plan to address problem: - SDCs to BLE while in bed - Lovenox sub q History Interval history: This is a 69 year old male with schizophrenia, diabetes mellitus, [place] s/p PCI/cardiac stents and current smoker who presents with altered mental status. Patient was discharged on 06/01 from this hospital after admission for altered mental status. On 06/02 patient was conversant and ambulatory in the morning however on presentation he was only responding to noxious stimuli. According to EMS, BG 538. He was admitted with acute metabolic encephalopathy. Of note on recent admission he presented with AMS and an acute CVA was ruled out. PT recommends SNF placement, nurse case manager is working on placement. This morning his BG was 60 and after PO juice his BG was 90 on repeat. Lantus dose decreased. 06/03: MH consult: Do not recommend acute inpatient psychiatric treatment at this time, PT consulted for eval and CM for placement. 06/04: BC, UA (-), stopped abx 06/05: PT recommends skilled PT services. Neurology recommends for patient to follow up with neurology as outpatient in 2-3 weeks for EEG monitoring and has signed off at this time. 06/06: Awaiting H evaluations at this time. 06/07: PT recommends SNF placement, nurse case manager is working on placement 06/08: hypoglycemia in the AM, protocol initated, hypokalemia, K repleted. CM working on placement. Hospitalist Physical - Constitutional Vitals: Temp Pulse Resp BP Pulse Ox 98.4 F 89 18 142/66 99 06/09/20 12:24 06/09/20 11:41 06/09/20 12:24 06/09/20 12:24 06/09/20 12:24 General appearance: Present: no acute distress, other (Lethargic) - EENT Eyes: Present: PERRL ENT: hearing intact - Neck Neck: Present: normal ROM - Respiratory Respiratory effort: normal Respiratory: bilateral: CTA - Cardiovascular Rhythm: regular Heart Sounds: Present: S1 & S2. Absent: systolic murmur, diastolic murmur - Extremities Extremities: no ischemia, pulses intact, pulses symmetrical, No edema, normal temperature, normal color, Full ROM Peripheral Pulses: within normal limits - Abdominal General gastrointestinal: soft, non-tender, non-distended, normal bowel sounds - Integumentary Integumentary: Present: clear, warm, dry - Psychiatric Psychiatric: cooperative - Neurologic Neurologic: CNII-XII intact, no focal deficits, moves all extremities - Allied Health Allied health notes reviewed: nursing, case management HEART Score - HEART Score Age: > 65 Risk factors: > 3 risk factors or hx of atherosclerotic disease Troponin: Troponin T < 0.010 ng/mL (0.00-0.029) 06/03/20 18:22 - Critical Actions Critical Actions: 0-3 pts:0.9-1.7%risk of adverse cardiac event.Candidate for discharge Results - Labs CBC & Chem 7: 06/08/20 04:16 06/09/20 10:49 Labs: Laboratory Last Values WBC 5.0 K/mm3 (4.5-11.0) 06/08/20 04:16 RBC 4.20 M/mm3 (3.65-5.03) 06/08/20 04:16 Hgb 13.2 gm/dl (11.8-15.2) 06/08/20 04:16 Hct 38.2 % (35.5-45.6) 06/08/20 04:16 MCV 91 fl (84-94) 06/08/20 04:16 MCH 31 pg (28-32) 06/08/20 04:16 MCHC 35 % (32-34) H 06/08/20 04:16 RDW 15.1 % (13.2-15.2) 06/08/20 04:16 Plt Count 149 K/mm3 (140-440) 06/08/20 04:16 Lymph % (Auto) 28.2 % (13.4-35.0) 06/02/20 19:59 [place] % (Auto) 14.0 % (0.0-7.3) H 06/02/20 19:59 Eos % (Auto) 1.0 % (0.0-4.3) 06/02/20 19:59 Baso % (Auto) 0.5 % (0.0-1.8) 06/02/20 19:59 Lymph # 1.2 K/mm3 (1.2-5.4) 06/02/20 19:59 [place] # 0.6 K/mm3 (0.0-0.8) 06/02/20 19:59 Eos # 0.0 K/mm3 (0.0-0.4) 06/02/20 19:59 Baso # 0.0 K/mm3 (0.0-0.1) 06/02/20 19:59 Seg Neutrophils % 56.3 % (40.0-70.0) 06/02/20 19:59 Seg Neutrophils # 2.4 K/mm3 (1.8-7.7) 06/02/20 19:59 PT 13.7 Sec. (12.2-14.9) 06/02/20 19:59 INR 1.04 (0.87-1.13) 06/02/20 19:59 APTT 26.2 Sec. (24.2-36.6) 06/02/20 19:59 Sodium 141 mmol/L (137-145) 06/09/20 10:49 Potassium 4.6 mmol/L (3.6-5.0) D 06/09/20 10:49 Chloride 107.4 mmol/L (98-107) H 06/09/20 10:49 Carbon Dioxide 22 mmol/L (22-30) 06/09/20 10:49 Anion Gap 16 mmol/L 06/09/20 10:49 BUN 12 mg/dL (9-20) 06/09/20 10:49 Creatinine 0.7 mg/dL (0.8-1.3) L 06/09/20 10:49 Estimated GFR > 60 ml/min 06/09/20 10:49 BUN/Creatinine Ratio 17 % 06/09/20 10:49 Glucose 190 mg/dL (75-100) H 06/09/20 10:49 POC Glucose 221 (70-105) H 06/09/20 11:39 Hemoglobin A1c 8.9 % (4-6) H 06/03/20 13:56 Lactic Acid 2.30 mmol/L (0.7-2.0) H* 06/02/20 19:59 Calcium 9.2 mg/dL (8.4-10.2) 06/09/20 10:49 Total Bilirubin 0.20 mg/dL (0.1-1.2) 06/02/20 19:59 AST 21 units/L (5-40) 06/02/20 19:59 ALT 28 units/L (7-56) 06/02/20 19:59 Alkaline Phosphatase 56 units/L (35-129) 06/02/20 19:59 Troponin T < 0.010 ng/mL (0.00-0.029) 06/03/20 18:22 Total Protein 6.9 g/dL (6.3-8.2) 06/02/20 19:59 Albumin 4.0 g/dL (3.9-5) 06/02/20 19:59 Albumin/Globulin Ratio 1.4 % 06/02/20 19:59 TSH 5.020 mlU/mL (0.270-4.200) H 06/02/20 19:59 Thyroxine (T4) 6.0 ug/dL (4.0-12.0) 06/03/20 07:49 Urine Color Straw (Yellow) 06/03/20 00:33 Urine Turbidity Clear (Clear) 06/03/20 00:33 Urine pH 6.0 (5.0-7.0) 06/03/20 00:33 Ur Specific [place] 1.028 (1.003-1.030) 06/03/20 00:33 Urine Protein <15 mg/dl mg/dL (Negative) 06/03/20 00:33 Urine Glucose (UA) >=500 mg/dL (Negative) 06/03/20 00:33 Urine Ketones Tr mg/dL (Negative) 06/03/20 00:33 Urine Blood Neg (Negative) 06/03/20 00:33 Urine Nitrite Neg (Negative) 06/03/20 00:33 Urine Bilirubin Neg (Negative) 06/03/20 00:33 Urine Urobilinogen < 2.0 mg/dL (<2.0) 06/03/20 00:33 Ur Leukocyte Esterase Neg (Negative) 06/03/20 00:33 Urine WBC (Auto) 1.0 /HPF (0.0-6.0) 06/03/20 00:33 Urine RBC (Auto) 1.0 /HPF (0.0-6.0) 06/03/20 00:33 Urine Bacteria (Auto) 1+ /HPF (Negative) 06/03/20 00:33 Urine Mucus Few /HPF 06/03/20 00:33 Salicylates < 0.3 mg/dL (2.8-20.0) L 06/02/20 19:59 Urine Opiates Screen Presumptive negative 06/03/20 00:33 Urine Methadone Screen Presumptive negative 06/03/20 00:33 Acetaminophen 5.0 ug/mL (10.0-30.0) L 06/02/20 19:59 Ur Barbiturates Screen Presumptive negative 06/03/20 00:33 Valproic Acid 68.4 ug/mL (50-100) 06/04/20 14:11 Ur Phencyclidine Scrn Presumptive negative 06/03/20 00:33 Ur Amphetamines Screen Presumptive negative 06/03/20 00:33 U Benzodiazepines Scrn Presumptive negative 06/03/20 00:33 Urine Cocaine Screen Presumptive negative 06/03/20 00:33 U Marijuana (THC) Screen Presumptive negative 06/03/20 00:33 Drugs of Abuse Note Disclamer 06/03/20 00:33 Plasma/Serum Alcohol < 0.01 % (0-0.07) 06/02/20 19:59 [place]/IV: Voiding Method Condom Catheter IV Catheter Type [Left Wrist] INT / Saline Lock IV Catheter Type [Right INT / Saline Lock Forearm] Active Medications - Current Medications Current Medications: Generic Name Dose Route Start Last Admin Trade Name Freq PRN Reason Stop Dose Admin Acetaminophen 650 mg 06/02/20 22:43 Tylenol PO Q4H PRN Fever >101 Aspirin 81 mg 06/03/20 10:00 06/09/20 09:52 Halfprin Ec PO 81 mg DAILY BENJAMÍN Administration Atorvastatin Calcium 40 mg 06/03/20 22:00 06/08/20 23:18 Lipitor PO 40 mg QHS BENJAMÍN Administration Dextrose 50 ml 06/02/20 22:39 D50w (25gm) Syringe IV Q30MIN PRN Hypoglycemia Protocol Divalproex Sodium 500 mg 06/03/20 10:00 06/09/20 09:[address] PO 500 mg BID BENJAMÍN Administration Enoxaparin Sodium 40 mg 06/05/20 22:00 06/08/20 23:18 Enoxaparin SUB-Q 40 mg QDAY@2200 BENJAMÍN Administration Hydralazine HCl 100 mg 06/08/20 14:00 06/09/20 06:30 Apresoline PO 100 mg Q8HR BENJAMÍN Administration Insulin Human Lispro 0 unit 06/03/20 22:00 06/08/20 23:15 Humalog SUB-Q 2 unit QHS [facility] Administration Protocol Insulin Human Regular 0 unit 06/03/20 07:30 06/09/20 12:27 Humulin R SUB-Q 2 unit AC BENJAMÍN Administration Protocol Lisinopril 10 mg 06/07/20 10:00 06/09/20 09:51 Zestril PO 10 mg QDAY BENJAMÍN Administration Metformin HCl 1,000 mg 06/03/20 08:00 06/09/20 08:44 Glucophage Xr PO Not Given QDDIAB [facility] Miscellaneous Medication 234 mg 06/02/20 23:00 Paliperidone Palmitate [Invega Sustenna] IM QMONTH [facility] Miscellaneous Medication 25 mg 06/03/20 10:00 Synjardy Xr 25-1,000 Mg Tablet PO DAILY [facility] Olanzapine 50 mg 06/03/20 22:00 06/08/20 23:18 Zyprexa PO 50 mg HS BENJAMÍN Administration Ondansetron HCl 4 mg 06/02/20 22:43 Zofran IV Q8H PRN Nausea And Vomiting Trazodone HCl 100 mg 06/02/20 23:00 Desyrel PO QHS PRN Insomnia
[2020-06-09] MEDS: INSULIN LISPRO 100 UNIT/ML VIAL 3 mL SUB-Q SCH (23:00)
[2020-06-09] MEDS: ENOXAPARIN 40 MG/0.4 ML INJ SUB-Q SCH (23:02)
[2020-06-09] MEDS: INSULIN GLARGINE 100 UNITS/ML SUB-Q SCH (23:03)
[2020-06-10] MEDS: hydrALAZINE 100 MG TAB PO SCH ×3 (06:07→22:39)
[2020-06-10] MEDS: ASPIRIN EC 81 MG TAB PO SCH (09:49)
[2020-06-10] MEDS: DIVALPROEX DR 500 MG TAB PO SCH ×2 (09:50→22:39)
[2020-06-10] MEDS: LISINOPRIL 10 MG TAB PO SCH (09:50)
[2020-06-10] MEDS: INSULIN REGULAR, HUMAN 100 UNIT/ML 3ML VIAL SUB-Q SCH ×3 (09:51→18:05)
[2020-06-10] MEDS: metFORMIN XR 500MG TAB PO SCH (09:51)
--- NOTE | 2020-06-10 15:11 | Progress Note ---
Assessment and Plan - Patient Problems 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 Current Visit: Yes Status: Acute Plan to address problem: Supportive care, benzodiazepine therapy as needed, verbal redirection, verbal prompting and redirecting (2) Metabolic encephalopathy Current Visit: Yes Status: Acute Plan to address problem: Resolved, supportive care. (3) Acute kidney injury Current Visit: Yes Status: Acute Plan to address problem: Resolved, repeat supportive care. (4) DVT prophylaxis Current Visit: Yes Status: Acute Plan to address problem: SCD to bilateral lower extremities while in bed History Interval history: 69 YO Male HD #7 with Vascular Dementia with behavioral disturbance, resolved RUDY, resolved Metabolic Encephalopathy, Schizophrenia, DM, HTN pending D/C to SNF when bed available. Pt medically optimized. No reported nursing events. Hospitalist Physical - Constitutional Vitals: Temp Pulse Resp BP Pulse Ox 97.8 F 83 18 138/79 97 06/10/20 07:35 06/10/20 09:50 06/10/20 10:00 06/10/20 09:50 06/10/20 07:35 General appearance: Present: no acute distress, other (Lethargic) - EENT Eyes: Present: PERRL, EOM intact - Neck Neck: Present: supple - Respiratory Respiratory effort: normal Respiratory: bilateral: CTA - Cardiovascular Rhythm: regular Heart Sounds: Present: S1 & S2 - Extremities Extremities: no ischemia Peripheral Pulses: within normal limits - Abdominal General gastrointestinal: soft, non-tender, non-distended - Integumentary Integumentary: Present: clear, dry - Psychiatric Psychiatric: cooperative - Neurologic Neurologic: CNII-XII intact HEART Score - HEART Score Age: > 65 Risk factors: > 3 risk factors or hx of atherosclerotic disease Troponin: Troponin T < 0.010 ng/mL (0.00-0.029) 06/03/20 18:22 - Critical Actions Critical Actions: 0-3 pts:0.9-1.7%risk of adverse cardiac event.Candidate for discharge Results - Labs CBC & Chem 7: 06/08/20 04:16 06/09/20 10:49 Labs: Laboratory Last Values WBC 5.0 K/mm3 (4.5-11.0) 06/08/20 04:16 RBC 4.20 M/mm3 (3.65-5.03) 06/08/20 04:16 Hgb 13.2 gm/dl (11.8-15.2) 06/08/20 04:16 Hct 38.2 % (35.5-45.6) 06/08/20 04:16 MCV 91 fl (84-94) 06/08/20 04:16 MCH 31 pg (28-32) 06/08/20 04:16 MCHC 35 % (32-34) H 06/08/20 04:16 RDW 15.1 % (13.2-15.2) 06/08/20 04:16 Plt Count 149 K/mm3 (140-440) 06/08/20 04:16 Lymph % (Auto) 28.2 % (13.4-35.0) 06/02/20 19:59 [place] % (Auto) 14.0 % (0.0-7.3) H 06/02/20 19:59 Eos % (Auto) 1.0 % (0.0-4.3) 06/02/20 19:59 Baso % (Auto) 0.5 % (0.0-1.8) 06/02/20 19:59 Lymph # 1.2 K/mm3 (1.2-5.4) 06/02/20 19:59 [place] # 0.6 K/mm3 (0.0-0.8) 06/02/20 19:59 Eos # 0.0 K/mm3 (0.0-0.4) 06/02/20 19:59 Baso # 0.0 K/mm3 (0.0-0.1) 06/02/20 19:59 Seg Neutrophils % 56.3 % (40.0-70.0) 06/02/20 19:59 Seg Neutrophils # 2.4 K/mm3 (1.8-7.7) 06/02/20 19:59 PT 13.7 Sec. (12.2-14.9) 06/02/20 19:59 INR 1.04 (0.87-1.13) 06/02/20 19:59 APTT 26.2 Sec. (24.2-36.6) 06/02/20 19:59 Sodium 141 mmol/L (137-145) 06/09/20 10:49 Potassium 4.6 mmol/L (3.6-5.0) D 06/09/20 10:49 Chloride 107.4 mmol/L (98-107) H 06/09/20 10:49 Carbon Dioxide 22 mmol/L (22-30) 06/09/20 10:49 Anion Gap 16 mmol/L 06/09/20 10:49 BUN 12 mg/dL (9-20) 06/09/20 10:49 Creatinine 0.7 mg/dL (0.8-1.3) L 06/09/20 10:49 Estimated GFR > 60 ml/min 06/09/20 10:49 BUN/Creatinine Ratio 17 % 06/09/20 10:49 Glucose 190 mg/dL (75-100) H 06/09/20 10:49 POC Glucose 220 (70-105) H 06/10/20 12:20 Hemoglobin A1c 8.9 % (4-6) H 06/03/20 13:56 Lactic Acid 2.30 mmol/L (0.7-2.0) H* 06/02/20 19:59 Calcium 9.2 mg/dL (8.4-10.2) 06/09/20 10:49 Total Bilirubin 0.20 mg/dL (0.1-1.2) 06/02/20 19:59 AST 21 units/L (5-40) 06/02/20 19:59 ALT 28 units/L (7-56) 06/02/20 19:59 Alkaline Phosphatase 56 units/L (35-129) 06/02/20 19:59 Troponin T < 0.010 ng/mL (0.00-0.029) 06/03/20 18:22 Total Protein 6.9 g/dL (6.3-8.2) 06/02/20 19:59 Albumin 4.0 g/dL (3.9-5) 06/02/20 19:59 Albumin/Globulin Ratio 1.4 % 06/02/20 19:59 TSH 5.020 mlU/mL (0.270-4.200) H 06/02/20 19:59 Thyroxine (T4) 6.0 ug/dL (4.0-12.0) 06/03/20 07:49 Urine Color Straw (Yellow) 06/03/20 00:33 Urine Turbidity Clear (Clear) 06/03/20 00:33 Urine pH 6.0 (5.0-7.0) 06/03/20 00:33 Ur Specific [place] 1.028 (1.003-1.030) 06/03/20 00:33 Urine Protein <15 mg/dl mg/dL (Negative) 06/03/20 00:33 Urine Glucose (UA) >=500 mg/dL (Negative) 06/03/20 00:33 Urine Ketones Tr mg/dL (Negative) 06/03/20 00:33 Urine Blood Neg (Negative) 06/03/20 00:33 Urine Nitrite Neg (Negative) 06/03/20 00:33 Urine Bilirubin Neg (Negative) 06/03/20 00:33 Urine Urobilinogen < 2.0 mg/dL (<2.0) 06/03/20 00:33 Ur Leukocyte Esterase Neg (Negative) 06/03/20 00:33 Urine WBC (Auto) 1.0 /HPF (0.0-6.0) 06/03/20 00:33 Urine RBC (Auto) 1.0 /HPF (0.0-6.0) 06/03/20 00:33 Urine Bacteria (Auto) 1+ /HPF (Negative) 06/03/20 00:33 Urine Mucus Few /HPF 06/03/20 00:33 Salicylates < 0.3 mg/dL (2.8-20.0) L 06/02/20 19:59 Urine Opiates Screen Presumptive negative 06/03/20 00:33 Urine Methadone Screen Presumptive negative 06/03/20 00:33 Acetaminophen 5.0 ug/mL (10.0-30.0) L 06/02/20 19:59 Ur Barbiturates Screen Presumptive negative 06/03/20 00:33 Valproic Acid 68.4 ug/mL (50-100) 06/04/20 14:11 Ur Phencyclidine Scrn Presumptive negative 06/03/20 00:33 Ur Amphetamines Screen Presumptive negative 06/03/20 00:33 U Benzodiazepines Scrn Presumptive negative 06/03/20 00:33 Urine Cocaine Screen Presumptive negative 06/03/20 00:33 U Marijuana (THC) Screen Presumptive negative 06/03/20 00:33 Drugs of Abuse Note Disclamer 06/03/20 00:33 Plasma/Serum Alcohol < 0.01 % (0-0.07) 06/02/20 19:59 Gardner/IV: Voiding Method Condom Catheter IV Catheter Type [Left Wrist] INT / Saline Lock IV Catheter Type [Right INT / Saline Lock Forearm] Active Medications - Current Medications Current Medications: Generic Name Dose Route Start Last Admin Trade Name Freq PRN Reason Stop Dose Admin Acetaminophen 650 mg 06/02/20 22:43 Tylenol PO Q4H PRN Fever >101 Aspirin 81 mg 06/03/20 10:00 06/10/20 09:49 Halfprin Ec PO 81 mg DAILY [facility] Administration Atorvastatin Calcium 40 mg 06/03/20 22:00 06/09/20 23:02 Lipitor PO 40 mg QHS [facility] Administration Dextrose 50 ml 06/02/20 22:39 D50w (25gm) Syringe IV Q30MIN PRN Hypoglycemia Protocol Divalproex Sodium 500 mg 06/03/20 10:00 06/10/20 09:[address] PO 500 mg BID [facility] Administration Enoxaparin Sodium 40 mg 06/05/20 22:00 06/09/20 23:02 Enoxaparin SUB-Q 40 mg QDAY@2200 [facility] Administration Hydralazine HCl 100 mg 06/08/20 14:00 06/10/20 14:08 Apresoline PO Not Given Q8HR [facility] Insulin Glargine 13 units 06/09/20 22:00 06/09/20 23:03 Lantus SUB-Q 13 units [facility] Administration Insulin Human Lispro 0 unit 06/03/20 22:00 06/09/20 23:00 Humalog SUB-Q 3 unit QHS [facility] Administration Protocol Insulin Human Regular 0 unit 06/03/20 07:30 06/10/20 13:00 Humulin R SUB-Q 2 unit AC [facility] Administration Protocol Lisinopril 10 mg 06/07/20 10:00 06/10/20 09:50 Zestril PO 10 mg QDAY [facility] Administration Metformin HCl 1,000 mg 06/03/20 08:00 06/10/20 09:51 Glucophage Xr PO 1,000 mg QDDIAB [facility] Administration Miscellaneous Medication 234 mg 06/02/20 23:00 Paliperidone Palmitate [Invega Sustenna] IM QMONTH [facility] Miscellaneous Medication 25 mg 06/03/20 10:00 Synjardy Xr 25-1,000 Mg Tablet PO DAILY [facility] Olanzapine 50 mg 06/03/20 22:00 06/09/20 23:02 Zyprexa PO 50 mg HS [facility] Administration Ondansetron HCl 4 mg 06/02/20 22:43 Zofran IV Q8H PRN Nausea And Vomiting Trazodone HCl 100 mg 06/02/20 23:00 Desyrel PO QHS PRN Insomnia
[2020-06-10] MEDS: ENOXAPARIN 40 MG/0.4 ML INJ SUB-Q SCH (22:38)
[2020-06-10] MEDS: INSULIN LISPRO 100 UNIT/ML VIAL 3 mL SUB-Q SCH (22:41)
[2020-06-10] MEDS: INSULIN GLARGINE 100 UNITS/ML SUB-Q SCH (22:41)
[2020-06-11] MEDS: hydrALAZINE 100 MG TAB PO SCH ×3 (05:38→22:31)
[2020-06-11] MEDS: LISINOPRIL 10 MG TAB PO SCH (09:10)
[2020-06-11] MEDS: DIVALPROEX DR 500 MG TAB PO SCH ×2 (09:10→22:31)
[2020-06-11] MEDS: INSULIN REGULAR, HUMAN 100 UNIT/ML 3ML VIAL SUB-Q SCH ×3 (09:11→18:28)
[2020-06-11] MEDS: ASPIRIN EC 81 MG TAB PO SCH (09:11)
[2020-06-11] MEDS: metFORMIN XR 500MG TAB PO SCH (09:11)
--- NOTE | 2020-06-11 20:54 | Progress Note ---
Assessment and Plan - Patient Problems 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 Current Visit: Yes Status: Acute Plan to address problem: Supportive care, benzodiazepine therapy as needed, verbal redirection, verbal prompting and redirecting (2) Metabolic encephalopathy Current Visit: Yes Status: Acute Plan to address problem: Resolved, supportive care. (3) Acute kidney injury Current Visit: Yes Status: Acute Plan to address problem: Resolved, repeat supportive care. (4) DVT prophylaxis Current Visit: Yes Status: Acute Plan to address problem: SCD to bilateral lower extremities while in bed History Interval history: 69 YO Male HD #8 with Vascular Dementia with behavioral disturbance, resolved RUDY, resolved Metabolic Encephalopathy, Schizophrenia, DM, HTN pending D/C to SNF when bed available. Pt medically optimized. No reported nursing events. Hospitalist Physical - Constitutional Vitals: Temp Pulse Resp BP Pulse Ox 98.8 F 87 18 113/61 98 06/11/20 19:27 06/11/20 20:33 06/11/20 19:27 06/11/20 19:27 06/11/20 19:27 General appearance: Present: no acute distress, other (Lethargic) - EENT Eyes: Present: PERRL ENT: hearing intact - Neck Neck: Present: supple - Respiratory Respiratory effort: normal Respiratory: bilateral: CTA - Cardiovascular Rhythm: regular Heart Sounds: Present: S1 & S2 - Extremities Extremities: no ischemia Peripheral Pulses: within normal limits - Abdominal General gastrointestinal: soft, non-tender, non-distended - Integumentary Integumentary: Present: clear, dry - Neurologic Neurologic: CNII-XII intact HEART Score - HEART Score Age: > 65 Risk factors: > 3 risk factors or hx of atherosclerotic disease Troponin: Troponin T < 0.010 ng/mL (0.00-0.029) 06/03/20 18:22 - Critical Actions Critical Actions: 0-3 pts:0.9-1.7%risk of adverse cardiac event.Candidate for discharge Results - Labs CBC & Chem 7: 06/08/20 04:16 06/09/20 10:49 Labs: Laboratory Last Values WBC 5.0 K/mm3 (4.5-11.0) 06/08/20 04:16 RBC 4.20 M/mm3 (3.65-5.03) 06/08/20 04:16 Hgb 13.2 gm/dl (11.8-15.2) 06/08/20 04:16 Hct 38.2 % (35.5-45.6) 06/08/20 04:16 MCV 91 fl (84-94) 06/08/20 04:16 MCH 31 pg (28-32) 06/08/20 04:16 MCHC 35 % (32-34) H 06/08/20 04:16 RDW 15.1 % (13.2-15.2) 06/08/20 04:16 Plt Count 149 K/mm3 (140-440) 06/08/20 04:16 Lymph % (Auto) 28.2 % (13.4-35.0) 06/02/20 19:59 [place] % (Auto) 14.0 % (0.0-7.3) H 06/02/20 19:59 Eos % (Auto) 1.0 % (0.0-4.3) 06/02/20 19:59 Baso % (Auto) 0.5 % (0.0-1.8) 06/02/20 19:59 Lymph # 1.2 K/mm3 (1.2-5.4) 06/02/20 19:59 [place] # 0.6 K/mm3 (0.0-0.8) 06/02/20 19:59 Eos # 0.0 K/mm3 (0.0-0.4) 06/02/20 19:59 Baso # 0.0 K/mm3 (0.0-0.1) 06/02/20 19:59 Seg Neutrophils % 56.3 % (40.0-70.0) 06/02/20 19:59 Seg Neutrophils # 2.4 K/mm3 (1.8-7.7) 06/02/20 19:59 PT 13.7 Sec. (12.2-14.9) 06/02/20 19:59 INR 1.04 (0.87-1.13) 06/02/20 19:59 APTT 26.2 Sec. (24.2-36.6) 06/02/20 19:59 Sodium 141 mmol/L (137-145) 06/09/20 10:49 Potassium 4.6 mmol/L (3.6-5.0) D 06/09/20 10:49 Chloride 107.4 mmol/L (98-107) H 06/09/20 10:49 Carbon Dioxide 22 mmol/L (22-30) 06/09/20 10:49 Anion Gap 16 mmol/L 06/09/20 10:49 BUN 12 mg/dL (9-20) 06/09/20 10:49 Creatinine 0.7 mg/dL (0.8-1.3) L 06/09/20 10:49 Estimated GFR > 60 ml/min 06/09/20 10:49 BUN/Creatinine Ratio 17 % 06/09/20 10:49 Glucose 190 mg/dL (75-100) H 06/09/20 10:49 POC Glucose 215 (70-105) H 06/11/20 16:14 Hemoglobin A1c 8.9 % (4-6) H 06/03/20 13:56 Lactic Acid 2.30 mmol/L (0.7-2.0) H* 06/02/20 19:59 Calcium 9.2 mg/dL (8.4-10.2) 06/09/20 10:49 Total Bilirubin 0.20 mg/dL (0.1-1.2) 06/02/20 19:59 AST 21 units/L (5-40) 06/02/20 19:59 ALT 28 units/L (7-56) 06/02/20 19:59 Alkaline Phosphatase 56 units/L (35-129) 06/02/20 19:59 Troponin T < 0.010 ng/mL (0.00-0.029) 06/03/20 18:22 Total Protein 6.9 g/dL (6.3-8.2) 06/02/20 19:59 Albumin 4.0 g/dL (3.9-5) 06/02/20 19:59 Albumin/Globulin Ratio 1.4 % 06/02/20 19:59 TSH 5.020 mlU/mL (0.270-4.200) H 06/02/20 19:59 Thyroxine (T4) 6.0 ug/dL (4.0-12.0) 06/03/20 07:49 Urine Color Straw (Yellow) 06/03/20 00:33 Urine Turbidity Clear (Clear) 06/03/20 00:33 Urine pH 6.0 (5.0-7.0) 06/03/20 00:33 Ur Specific [place] 1.028 (1.003-1.030) 06/03/20 00:33 Urine Protein <15 mg/dl mg/dL (Negative) 06/03/20 00:33 Urine Glucose (UA) >=500 mg/dL (Negative) 06/03/20 00:33 Urine Ketones Tr mg/dL (Negative) 06/03/20 00:33 Urine Blood Neg (Negative) 06/03/20 00:33 Urine Nitrite Neg (Negative) 06/03/20 00:33 Urine Bilirubin Neg (Negative) 06/03/20 00:33 Urine Urobilinogen < 2.0 mg/dL (<2.0) 06/03/20 00:33 Ur Leukocyte Esterase Neg (Negative) 06/03/20 00:33 Urine WBC (Auto) 1.0 /HPF (0.0-6.0) 06/03/20 00:33 Urine RBC (Auto) 1.0 /HPF (0.0-6.0) 06/03/20 00:33 Urine Bacteria (Auto) 1+ /HPF (Negative) 06/03/20 00:33 Urine Mucus Few /HPF 06/03/20 00:33 Salicylates < 0.3 mg/dL (2.8-20.0) L 06/02/20 19:59 Urine Opiates Screen Presumptive negative 06/03/20 00:33 Urine Methadone Screen Presumptive negative 06/03/20 00:33 Acetaminophen 5.0 ug/mL (10.0-30.0) L 06/02/20 19:59 Ur Barbiturates Screen Presumptive negative 06/03/20 00:33 Valproic Acid 68.4 ug/mL (50-100) 06/04/20 14:11 Ur Phencyclidine Scrn Presumptive negative 06/03/20 00:33 Ur Amphetamines Screen Presumptive negative 06/03/20 00:33 U Benzodiazepines Scrn Presumptive negative 06/03/20 00:33 Urine Cocaine Screen Presumptive negative 06/03/20 00:33 U Marijuana (THC) Screen Presumptive negative 06/03/20 00:33 Drugs of Abuse Note Disclamer 06/03/20 00:33 Plasma/Serum Alcohol < 0.01 % (0-0.07) 06/02/20 19:59 Gardner/IV: Voiding Method Condom Catheter IV Catheter Type [Left Wrist] INT / Saline Lock IV Catheter Type [Right INT / Saline Lock Forearm] Active Medications - Current Medications Current Medications: Generic Name Dose Route Start Last Admin Trade Name Freq PRN Reason Stop Dose Admin Acetaminophen 650 mg 06/02/20 22:43 Tylenol PO Q4H PRN Fever >101 Aspirin 81 mg 06/03/20 10:00 06/11/20 09:11 Halfprin Ec PO 81 mg DAILY [facility] Administration Atorvastatin Calcium 40 mg 06/03/20 22:00 06/10/20 22:39 Lipitor PO 40 mg QHS [facility] Administration Dextrose 50 ml 06/02/20 22:39 D50w (25gm) Syringe IV Q30MIN PRN Hypoglycemia Protocol Divalproex Sodium 500 mg 06/03/20 10:00 06/11/20 09:[address] PO 500 mg BID [facility] Administration Enoxaparin Sodium 40 mg 06/05/20 22:00 06/10/20 22:38 Enoxaparin SUB-Q 40 mg QDAY@2200 [facility] Administration Hydralazine HCl 100 mg 06/08/20 14:00 06/11/20 16:05 Apresoline PO Not Given Q8HR [facility] Insulin Glargine 13 units 06/09/20 22:00 06/10/20 22:41 Lantus SUB-Q 13 units HS [facility] Administration Insulin Human Lispro 0 unit 06/03/20 22:00 06/10/20 22:41 Humalog SUB-Q Not Given QHS [facility] Protocol Insulin Human Regular 0 unit 06/03/20 07:30 06/11/20 18:28 Humulin R SUB-Q 2 unit AC [facility] Administration Protocol Lisinopril 10 mg 06/07/20 10:00 06/11/20 09:10 Zestril PO 10 mg QDAY [facility] Administration Metformin HCl 1,000 mg 06/03/20 08:00 06/11/20 09:11 Glucophage Xr PO 1,000 mg QDDIAB [facility] Administration Miscellaneous Medication 234 mg 06/02/20 23:00 Paliperidone Palmitate [Invega Sustenna] IM QMONTH [facility] Miscellaneous Medication 25 mg 06/03/20 10:00 Synjardy Xr 25-1,000 Mg Tablet PO DAILY [facility] Olanzapine 50 mg 06/03/20 22:00 06/10/20 22:39 Zyprexa PO 50 mg HS [facility] Administration Ondansetron HCl 4 mg 06/02/20 22:43 Zofran IV Q8H PRN Nausea And Vomiting Trazodone HCl 100 mg 06/02/20 23:00 Desyrel PO QHS PRN Insomnia
[2020-06-11] MEDS: ENOXAPARIN 40 MG/0.4 ML INJ SUB-Q SCH (22:31)
[2020-06-11] MEDS: INSULIN GLARGINE 100 UNITS/ML SUB-Q SCH (22:32)
[2020-06-11] MEDS: INSULIN LISPRO 100 UNIT/ML VIAL 3 mL SUB-Q SCH (22:35)
[2020-06-12] MEDS: hydrALAZINE 100 MG TAB PO SCH ×3 (05:11→22:06)
[2020-06-12] MEDS: DIVALPROEX DR 500 MG TAB PO SCH ×2 (09:14→22:06)
[2020-06-12] MEDS: LISINOPRIL 10 MG TAB PO SCH (09:14)
[2020-06-12] MEDS: ASPIRIN EC 81 MG TAB PO SCH (09:14)
[2020-06-12] MEDS: INSULIN REGULAR, HUMAN 100 UNIT/ML 3ML VIAL SUB-Q SCH ×3 (09:15→16:43)
[2020-06-12] MEDS: metFORMIN XR 500MG TAB PO SCH (09:15)
--- NOTE | 2020-06-12 10:11 | Progress Note ---
Assessment and Plan - Patient Problems 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 Current Visit: Yes Status: Acute Plan to address problem: -Supportive care - Benzodiazepine therapy as needed - Verbal redirection, verbal prompting and redirecting - Falls precautions (2) RUDY (acute kidney injury) Current Visit: Yes Status: Resolved Plan to address problem: - Admit Cr 1.1 which has trended down to 0.7 - Likely secondary to vasomotor nephropathy (3) Acute metabolic encephalopathy Current Visit: Yes Status: Resolved Plan to address problem: - Unclear etiology - History of schizophrenia and he is on olanzapine and valproic acid - UA (-), UC NGTD - Patient seems to be back to his baseline - Neurology recommend for patient to follow up with neurology as outpatient in 2-3 weeks for EEG monitoring and has signed off at this time (4) Schizophrenia Current Visit: Yes Status: Chronic Plan to address problem: - Continue Depakote, Invega, and Zyprexa - 06/05 valproic acid level 68 - MH consulted does not recommend inpatient psych at this time - CM for placement as family member voiced safety concern in current living situation - PT home health with PT or skilled placement (5) Diabetes Current Visit: Yes Status: Chronic Plan to address problem: - SSI - Accucheck ACHS - CC diet - Lantus decreased r/t hypoglycemia in the AM on 06/08 and 06/09 but now increased for hyperglycemia - Metformin 1000mg BID (6) Hypertension Current Visit: No Status: Chronic Qualifiers: Hypertension type: essential hypertension Qualified Code(s): I10 - Essential (primary) hypertension Plan to address problem: - Restarted Lisinopril and Hydralazine, doses adjusted for persistent HTN - BP monitoring per protocol (7) Tobacco abuse Current Visit: Yes Status: Chronic Plan to address problem: - Smoking cessation counseling (8) Discharge planning issues Current Visit: Yes Status: Acute Plan to address problem: - CM working on placement - PT recommends SNF placement (9) DVT prophylaxis Current Visit: Yes Status: Acute Plan to address problem: - SDCs to BLE while in bed - Lovenox sub q History Interval history: This is a 69 year old male with schizophrenia, diabetes mellitus, IA s/p PCI/cardiac stents and current smoker who presents with altered mental status. Patient was discharged on 06/01 from this hospital after admission for altered mental status. On 06/02 patient was conversant and ambulatory in the morning however on presentation he was only responding to noxious stimuli. According to EMS, BG 538. He was admitted with acute metabolic encephalopathy. Of note on recent admission he presented with AMS and an acute CVA was ruled out. PT recommends SNF placement, medical case manager is working on placement. No acute event reported overnight, patient is sleeping but arousable to voice and appropriate. 06/03: MH consult: Do not recommend acute inpatient psychiatric treatment at this time, PT consulted for eval and CM for placement. 06/04: BC, UA (-), stopped abx 06/05: PT recommends skilled PT services. Neurology recommends for patient to follow up with neurology as outpatient in 2-3 weeks for EEG monitoring and has signed off at this time. 06/06: Awaiting [facility] evaluations at this time. 06/07: PT recommends SNF placement, medical case manager is working on placement 06/08: hypoglycemia in the AM, protocol initated, hypokalemia, K repleted. CM working on placement. 06/09: Lantus dose decreased for recurrent hypoglycemia Hospitalist Physical - Constitutional Vitals: Temp Pulse Resp BP Pulse Ox 98.0 F 87 17 127/69 98 06/12/20 08:05 06/12/20 09:14 06/12/20 08:05 06/12/20 09:14 06/12/20 08:05 General appearance: Present: no acute distress, other (Lethargic) - EENT Eyes: Present: PERRL ENT: hearing intact - Neck Neck: Present: supple - Respiratory Respiratory effort: normal Respiratory: bilateral: CTA - Cardiovascular Rhythm: regular Heart Sounds: Present: S1 & S2. Absent: systolic murmur, diastolic murmur - Extremities Extremities: no ischemia, pulses intact, pulses symmetrical, No edema, normal temperature, normal color, Full ROM Peripheral Pulses: within normal limits - Abdominal General gastrointestinal: soft, non-tender, non-distended, normal bowel sounds - Integumentary Integumentary: Present: clear, warm, dry - Psychiatric Psychiatric: cooperative - Neurologic Neurologic: CNII-XII intact, no focal deficits, moves all extremities - Allied Health Allied health notes reviewed: nursing, social work, case management HEART Score - HEART Score Age: > 65 Risk factors: > 3 risk factors or hx of atherosclerotic disease Troponin: Troponin T < 0.010 ng/mL (0.00-0.029) 06/03/20 18:22 - Critical Actions Critical Actions: 0-3 pts:0.9-1.7%risk of adverse cardiac event.Candidate for discharge Results - Labs CBC & Chem 7: 06/08/20 04:16 06/09/20 10:49 Labs: Laboratory Last Values WBC 5.0 K/mm3 (4.5-11.0) 06/08/20 04:16 RBC 4.20 M/mm3 (3.65-5.03) 06/08/20 04:16 Hgb 13.2 gm/dl (11.8-15.2) 06/08/20 04:16 Hct 38.2 % (35.5-45.6) 06/08/20 04:16 MCV 91 fl (84-94) 06/08/20 04:16 MCH 31 pg (28-32) 06/08/20 04:16 MCHC 35 % (32-34) H 06/08/20 04:16 RDW 15.1 % (13.2-15.2) 06/08/20 04:16 Plt Count 149 K/mm3 (140-440) 06/08/20 04:16 Lymph % (Auto) 28.2 % (13.4-35.0) 06/02/20 19:59 Falls % (Auto) 14.0 % (0.0-7.3) H 06/02/20 19:59 Eos % (Auto) 1.0 % (0.0-4.3) 06/02/20 19:59 Baso % (Auto) 0.5 % (0.0-1.8) 06/02/20 19:59 Lymph # 1.2 K/mm3 (1.2-5.4) 06/02/20 19:59 Falls # 0.6 K/mm3 (0.0-0.8) 06/02/20 19:59 Eos # 0.0 K/mm3 (0.0-0.4) 06/02/20 19:59 Baso # 0.0 K/mm3 (0.0-0.1) 06/02/20 19:59 Seg Neutrophils % 56.3 % (40.0-70.0) 06/02/20 19:59 Seg Neutrophils # 2.4 K/mm3 (1.8-7.7) 06/02/20 19:59 PT 13.7 Sec. (12.2-14.9) 06/02/20 19:59 INR 1.04 (0.87-1.13) 06/02/20 19:59 APTT 26.2 Sec. (24.2-36.6) 06/02/20 19:59 Sodium 141 mmol/L (137-145) 06/09/20 10:49 Potassium 4.6 mmol/L (3.6-5.0) D 06/09/20 10:49 Chloride 107.4 mmol/L (98-107) H 06/09/20 10:49 Carbon Dioxide 22 mmol/L (22-30) 06/09/20 10:49 Anion Gap 16 mmol/L 06/09/20 10:49 BUN 12 mg/dL (9-20) 06/09/20 10:49 Creatinine 0.7 mg/dL (0.8-1.3) L 06/09/20 10:49 Estimated GFR > 60 ml/min 06/09/20 10:49 BUN/Creatinine Ratio 17 % 06/09/20 10:49 Glucose 190 mg/dL (75-100) H 06/09/20 10:49 POC Glucose 173 (70-105) H 06/12/20 08:22 Hemoglobin A1c 8.9 % (4-6) H 06/03/20 13:56 Lactic Acid 2.30 mmol/L (0.7-2.0) H* 06/02/20 19:59 Calcium 9.2 mg/dL (8.4-10.2) 06/09/20 10:49 Total Bilirubin 0.20 mg/dL (0.1-1.2) 06/02/20 19:59 AST 21 units/L (5-40) 06/02/20 19:59 ALT 28 units/L (7-56) 06/02/20 19:59 Alkaline Phosphatase 56 units/L (35-129) 06/02/20 19:59 Troponin T < 0.010 ng/mL (0.00-0.029) 06/03/20 18:22 Total Protein 6.9 g/dL (6.3-8.2) 06/02/20 19:59 Albumin 4.0 g/dL (3.9-5) 06/02/20 19:59 Albumin/Globulin Ratio 1.4 % 06/02/20 19:59 TSH 5.020 mlU/mL (0.270-4.200) H 06/02/20 19:59 Thyroxine (T4) 6.0 ug/dL (4.0-12.0) 06/03/20 07:49 Urine Color Straw (Yellow) 06/03/20 00:33 Urine Turbidity Clear (Clear) 06/03/20 00:33 Urine pH 6.0 (5.0-7.0) 06/03/20 00:33 Ur Specific [place] 1.028 (1.003-1.030) 06/03/20 00:33 Urine Protein <15 mg/dl mg/dL (Negative) 06/03/20 00:33 Urine Glucose (UA) >=500 mg/dL (Negative) 06/03/20 00:33 Urine Ketones Tr mg/dL (Negative) 06/03/20 00:33 Urine Blood Neg (Negative) 06/03/20 00:33 Urine Nitrite Neg (Negative) 06/03/20 00:33 Urine Bilirubin Neg (Negative) 06/03/20 00:33 Urine Urobilinogen < 2.0 mg/dL (<2.0) 06/03/20 00:33 Ur Leukocyte Esterase Neg (Negative) 06/03/20 00:33 Urine WBC (Auto) 1.0 /HPF (0.0-6.0) 06/03/20 00:33 Urine RBC (Auto) 1.0 /HPF (0.0-6.0) 06/03/20 00:33 Urine Bacteria (Auto) 1+ /HPF (Negative) 06/03/20 00:33 Urine Mucus Few /HPF 06/03/20 00:33 Salicylates < 0.3 mg/dL (2.8-20.0) L 06/02/20 19:59 Urine Opiates Screen Presumptive negative 06/03/20 00:33 Urine Methadone Screen Presumptive negative 06/03/20 00:33 Acetaminophen 5.0 ug/mL (10.0-30.0) L 06/02/20 19:59 Ur Barbiturates Screen Presumptive negative 06/03/20 00:33 Valproic Acid 68.4 ug/mL (50-100) 06/04/20 14:11 Ur Phencyclidine Scrn Presumptive negative 06/03/20 00:33 Ur Amphetamines Screen Presumptive negative 06/03/20 00:33 U Benzodiazepines Scrn Presumptive negative 06/03/20 00:33 Urine Cocaine Screen Presumptive negative 06/03/20 00:33 U Marijuana (THC) Screen Presumptive negative 06/03/20 00:33 Drugs of Abuse Note Disclamer 06/03/20 00:33 Plasma/Serum Alcohol < 0.01 % (0-0.07) 06/02/20 19:59 Gardner/IV: Voiding Method Condom Catheter IV Catheter Type [Left Wrist] INT / Saline Lock IV Catheter Type [Right INT / Saline Lock Forearm] Active Medications - Current Medications Current Medications: Generic Name Dose Route Start Last Admin Trade Name Freq PRN Reason Stop Dose Admin Acetaminophen 650 mg 06/02/20 22:43 Tylenol PO Q4H PRN Fever >101 Aspirin 81 mg 06/03/20 10:00 06/12/20 09:14 Halfprin Ec PO 81 mg DAILY BENJAMÍN Administration Atorvastatin Calcium 40 mg 06/03/20 22:00 06/11/20 22:31 Lipitor PO 40 mg QHS BENJAMÍN Administration Dextrose 50 ml 06/02/20 22:39 D50w (25gm) Syringe IV Q30MIN PRN Hypoglycemia Protocol Divalproex Sodium 500 mg 06/03/20 10:00 06/12/20 09:[address] PO 500 mg BID BENJAMÍN Administration Enoxaparin Sodium 40 mg 06/05/20 22:00 06/11/20 22:31 Enoxaparin SUB-Q 40 mg QDAY@2200 BENJAMÍN Administration Hydralazine HCl 100 mg 06/08/20 14:00 06/12/20 05:11 Apresoline PO 100 mg Q8HR BENJAMÍN Administration Insulin Glargine 13 units 06/09/20 22:00 06/11/20 22:32 Lantus SUB-Q 13 units HS BENJAMÍN Administration Insulin Human Lispro 0 unit 06/03/20 22:00 06/11/20 22:35 Humalog SUB-Q Not Given QHS [facility] Protocol Insulin Human Regular 0 unit 06/03/20 07:30 06/12/20 09:15 Humulin R SUB-Q 1 unit AC BENJAMÍN Administration Protocol Lisinopril 10 mg 06/07/20 10:00 08/24/20 09:14 Zestril PO 10 mg QDAY BENJAMÍN Administration Metformin HCl 1,000 mg 06/03/20 08:00 06/12/20 09:15 Glucophage Xr PO 1,000 mg QDDIAB BENJAMÍN Administration Miscellaneous Medication 234 mg 06/02/20 23:00 Paliperidone Palmitate [Invega Sustenna] IM QMONTH [facility] Miscellaneous Medication 25 mg 06/03/20 10:00 Synjardy Xr 25-1,000 Mg Tablet PO DAILY BENJAMÍN Olanzapine 50 mg 06/03/20 22:00 06/11/20 22:31 Zyprexa PO 50 mg HS BENJAMÍN Administration Ondansetron HCl 4 mg 06/02/20 22:43 Zofran IV Q8H PRN Nausea And Vomiting Trazodone HCl 100 mg 06/02/20 23:00 Desyrel PO QHS PRN Insomnia
[2020-06-12] MEDS ORDERED: INSULIN GLARGINE 100 UNITS/ML SUB-Q SCH (14:43)
[2020-06-12] MEDS: ENOXAPARIN 40 MG/0.4 ML INJ SUB-Q SCH (22:07)
[2020-06-12] MEDS: INSULIN LISPRO 100 UNIT/ML VIAL 3 mL SUB-Q SCH (22:18)
[2020-06-13] MEDS: hydrALAZINE 100 MG TAB PO SCH ×5 (05:31→21:50)
[2020-06-13 07:08] LABS: Alanine Aminotransferase 12 units/L (7-56); Albumin 3.2 g/dL (3.9-5); BUN/Creatinine Ratio 32; Blood Urea Nitrogen 29 mg/dL (9-20); Calcium 9.1 mg/dL (8.4-10.2); Hemolysis Index 7
[2020-06-13] MEDS: INSULIN REGULAR, HUMAN 100 UNIT/ML 3ML VIAL SUB-Q SCH ×3 (08:38→18:01)
[2020-06-13] MEDS: metFORMIN XR 500MG TAB PO SCH (09:46)
[2020-06-13] MEDS: DIVALPROEX DR 500 MG TAB PO SCH ×2 (09:46→21:49)
[2020-06-13] MEDS: ASPIRIN EC 81 MG TAB PO SCH (09:46)
[2020-06-13] MEDS: LISINOPRIL 10 MG TAB PO SCH (09:47)
--- NOTE | 2020-06-13 14:42 | Progress Note ---
<BILLYSTONE FernandaAlen - Last Filed: 06/13/20 14:39> Assessment and Plan - Patient Problems 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 Current Visit: Yes Status: Acute Plan to address problem: - Supportive care - Benzodiazepine therapy as needed - Verbal redirection, verbal prompting and redirecting - Falls precautions (2) RUDY (acute kidney injury) Current Visit: Yes Status: Resolved Plan to address problem: - Admit Cr 1.1 which has trended down to 0.7 - Likely secondary to vasomotor nephropathy (3) Acute metabolic encephalopathy Current Visit: Yes Status: Resolved Plan to address problem: - Unclear etiology - History of schizophrenia and he is on olanzapine and valproic acid - UA (-), UC NGTD - Patient seems to be back to his baseline - Neurology recommend for patient to follow up with neurology as outpatient in 2-3 weeks for EEG monitoring and has signed off at this time (4) Schizophrenia Current Visit: Yes Status: Chronic Plan to address problem: - Continue Depakote, Invega, and Zyprexa - 06/05 valproic acid level 68 - MH consulted does not recommend inpatient psych at this time - CM for placement as family member voiced safety concern in current living situation - PT home health with PT or skilled placement (5) Diabetes Current Visit: Yes Status: Chronic Plan to address problem: - SSI - Accucheck ACHS - CC diet - Lantus increased to 21 units HS - Metformin 1000mg BID (6) Hypertension Current Visit: No Status: Chronic Qualifiers: Hypertension type: essential hypertension Qualified Code(s): I10 - Essential (primary) hypertension Plan to address problem: - Restarted Lisinopril and Hydralazine, doses adjusted for persistent HTN - BP monitoring per protocol (7) Tobacco abuse Current Visit: Yes Status: Chronic Plan to address problem: - Smoking cessation counseling (8) Discharge planning issues Current Visit: Yes Status: Acute Plan to address problem: - CM working on placement - PT recommends SNF placement (9) DVT prophylaxis Current Visit: Yes Status: Acute Plan to address problem: - SDCs to BLE while in bed - Lovenox sub q History Interval history: This is a 69 year old male with schizophrenia, diabetes mellitus, NE s/p PCI/cardiac stents and current smoker who presents with altered mental status. P eliseo was discharged on 8/13 from this hospital after admission for altered mental status. On 06/02 patient was conversant and ambulatory in the morning however on presentation he was only responding to noxious stimuli. According to EMS, BG 538. He was admitted with acute metabolic encephalopathy. Of note on recent admission he presented with AMS and an acute CVA was ruled out. PT recommends SNF placement, [facility] is working on placement. No acute event reported overnight, patient is sleeping but arousable to voice and appropriate. Lantus dose increased to 21 units nightly for hypoglycemia. 06/03: MH consult: Do not recommend acute inpatient psychiatric treatment at this time, PT consulted for eval and CM for placement. 06/04: BC, UA (-), stopped abx 06/05: PT recommends skilled PT services. Neurology recommends for patient to follow up with neurology as outpatient in 2-3 weeks for EEG monitoring and has signed off at this time. 06/06: Awaiting [facility] evaluations at this time. 06/07: PT recommends SNF placement, [facility] is working on placement 06/08: hypoglycemia in the AM, protocol initated, hypokalemia, K repleted. CM working on placement. 06/09: Lantus dose decreased for recurrent hypoglycemia 06/10: CM working on placement, Lantus increased to 21 units at bedtime Hospitalist Physical - Constitutional Vitals: Temp Pulse Resp BP Pulse Ox 98.7 F 83 20 100/63 100 06/13/20 11:39 06/13/20 11:39 06/13/20 11:39 06/13/20 11:39 06/13/20 11:39 General appearance: Present: no acute distress, other (Lethargic) - EENT Eyes: Present: PERRL ENT: hearing intact - Neck Neck: Present: supple, normal ROM - Respiratory Respiratory effort: normal Respiratory: bilateral: CTA - Cardiovascular Rhythm: regular Heart Sounds: Present: S1 & S2. Absent: systolic murmur, diastolic murmur - Extremities Extremities: no ischemia, pulses intact, pulses symmetrical, No edema, normal temperature, Full ROM Peripheral Pulses: within normal limits - Abdominal General gastrointestinal: soft, non-tender, non-distended, normal bowel sounds - Integumentary Integumentary: Present: clear, warm, dry - Psychiatric Psychiatric: appropriate mood/affect, cooperative - Neurologic Neurologic: CNII-XII intact, no focal deficits, moves all extremities - Allied Health Allied health notes reviewed: nursing, social work, case management HEART Score - HEART Score Age: > 65 Risk factors: > 3 risk factors or hx of atherosclerotic disease Troponin: Troponin T < 0.010 ng/mL (0.00-0.029) 06/03/20 18:22 - Critical Actions Critical Actions: 0-3 pts:0.9-1.7%risk of adverse cardiac event.Candidate for discharge Results - Labs CBC & Chem 7: 06/08/20 04:16 06/13/20 05:26 Labs: Laboratory Last Values WBC 5.0 K/mm3 (4.5-11.0) 06/08/20 04:16 RBC 4.20 M/mm3 (3.65-5.03) 06/08/20 04:16 Hgb 13.2 gm/dl (11.8-15.2) 06/08/20 04:16 Hct 38.2 % (35.5-45.6) 06/08/20 04:16 MCV 91 fl (84-94) 06/08/20 04:16 MCH 31 pg (28-32) 06/08/20 04:16 MCHC 35 % (32-34) H 06/08/20 04:16 RDW 15.1 % (13.2-15.2) 06/08/20 04:16 Plt Count 149 K/mm3 (140-440) 06/08/20 04:16 Lymph % (Auto) 28.2 % (13.4-35.0) 06/02/20 19:59 Cloud % (Auto) 14.0 % (0.0-7.3) H 06/02/20 19:59 Eos % (Auto) 1.0 % (0.0-4.3) 06/02/20 19:59 Baso % (Auto) 0.5 % (0.0-1.8) 06/02/20 19:59 Lymph # 1.2 K/mm3 (1.2-5.4) 06/02/20 19:59 Cloud # 0.6 K/mm3 (0.0-0.8) 06/02/20 19:59 Eos # 0.0 K/mm3 (0.0-0.4) 06/02/20 19:59 Baso # 0.0 K/mm3 (0.0-0.1) 06/02/20 19:59 Seg Neutrophils % 56.3 % (40.0-70.0) 06/02/20 19:59 Seg Neutrophils # 2.4 K/mm3 (1.8-7.7) 06/02/20 19:59 PT 13.7 Sec. (12.2-14.9) 06/02/20 19:59 INR 1.04 (0.87-1.13) 06/02/20 19:59 APTT 26.2 Sec. (24.2-36.6) 06/02/20 19:59 Sodium 143 mmol/L (137-145) 06/13/20 05:26 Potassium 4.3 mmol/L (3.6-5.0) 06/13/20 05:26 Chloride 106.8 mmol/L (98-107) 06/13/20 05:26 Carbon Dioxide 25 mmol/L (22-30) 06/13/20 05:26 Anion Gap 16 mmol/L 06/13/20 05:26 BUN 29 mg/dL (9-20) H 06/13/20 05:26 Creatinine 0.9 mg/dL (0.8-1.3) 06/13/20 05:26 Estimated GFR > 60 ml/min 06/13/20 05:26 BUN/Creatinine Ratio 32 % 06/13/20 05:26 Glucose 279 mg/dL (75-100) H 06/13/20 05:26 POC Glucose 269 (70-105) H 06/13/20 11:56 Hemoglobin A1c 8.9 % (4-6) H 06/03/20 13:56 Lactic Acid 2.30 mmol/L (0.7-2.0) H* 06/02/20 19:59 Calcium 9.1 mg/dL (8.4-10.2) 06/13/20 05:26 Total Bilirubin 0.20 mg/dL (0.1-1.2) 06/13/20 05:26 AST 14 units/L (5-40) 06/13/20 05:26 ALT 12 units/L (7-56) 06/13/20 05:26 Alkaline Phosphatase 64 units/L (35-129) 06/13/20 05:26 Troponin T < 0.010 ng/mL (0.00-0.029) 06/03/20 18:22 Total Protein 6.2 g/dL (6.3-8.2) L 06/13/20 05:26 Albumin 3.2 g/dL (3.9-5) L 06/13/20 05:26 Albumin/Globulin Ratio 1.1 % 06/13/20 05:26 TSH 5.020 mlU/mL (0.270-4.200) H 06/02/20 19:59 Thyroxine (T4) 6.0 ug/dL (4.0-12.0) 06/03/20 07:49 Urine Color Straw (Yellow) 06/03/20 00:33 Urine Turbidity Clear (Clear) 06/03/20 00:33 Urine pH 6.0 (5.0-7.0) 06/03/20 00:33 Ur Specific [place] 1.028 (1.003-1.030) 06/03/20 00:33 Urine Protein <15 mg/dl mg/dL (Negative) 06/03/20 00:33 Urine Glucose (UA) >=500 mg/dL (Negative) 06/03/20 00:33 Urine Ketones Tr mg/dL (Negative) 06/03/20 00:33 Urine Blood Neg (Negative) 06/03/20 00:33 Urine Nitrite Neg (Negative) 06/03/20 00:33 Urine Bilirubin Neg (Negative) 06/03/20 00:33 Urine Urobilinogen < 2.0 mg/dL (<2.0) 06/03/20 00:33 Ur Leukocyte Esterase Neg (Negative) 06/03/20 00:33 Urine WBC (Auto) 1.0 /HPF (0.0-6.0) 06/03/20 00:33 Urine RBC (Auto) 1.0 /HPF (0.0-6.0) 06/03/20 00:33 Urine Bacteria (Auto) 1+ /HPF (Negative) 06/03/20 00:33 Urine Mucus Few /HPF 06/03/20 00:33 Salicylates < 0.3 mg/dL (2.8-20.0) L 06/02/20 19:59 Urine Opiates Screen Presumptive negative 06/03/20 00:33 Urine Methadone Screen Presumptive negative 06/03/20 00:33 Acetaminophen 5.0 ug/mL (10.0-30.0) L 06/02/20 19:59 Ur Barbiturates Screen Presumptive negative 06/03/20 00:33 Valproic Acid 68.4 ug/mL (50-100) 06/04/20 14:11 Ur Phencyclidine Scrn Presumptive negative 06/03/20 00:33 Ur Amphetamines Screen Presumptive negative 06/03/20 00:33 U Benzodiazepines Scrn Presumptive negative 06/03/20 00:33 Urine Cocaine Screen Presumptive negative 06/03/20 00:33 U Marijuana (THC) Screen Presumptive negative 06/03/20 00:33 Drugs of Abuse Note Disclamer 06/03/20 00:33 Plasma/Serum Alcohol < 0.01 % (0-0.07) 06/02/20 19:59 Gardner/IV: Voiding Method Condom Catheter IV Catheter Type [Left Wrist] INT / Saline Lock IV Catheter Type [Right INT / Saline Lock Forearm] Active Medications - Current Medications Current Medications: Generic Name Dose Route Start Last Admin Trade Name Freq PRN Reason Stop Dose Admin Acetaminophen 650 mg 06/02/20 22:43 Tylenol PO Q4H PRN Fever >101 Aspirin 81 mg 06/03/20 10:00 06/13/20 09:46 Halfprin Ec PO 81 mg DAILY BENJAMÍN Administration Atorvastatin Calcium 40 mg 06/03/20 22:00 06/12/20 22:06 Lipitor PO 40 mg QHS [facility] Administration Dextrose 50 ml 06/02/20 22:39 D50w (25gm) Syringe IV Q30MIN PRN Hypoglycemia Protocol Divalproex Sodium 500 mg 06/03/20 10:00 06/13/20 09:[address] PO 500 mg BID BENJAMÍN Administration Enoxaparin Sodium 40 mg 06/05/20 22:00 06/12/20 22:07 Enoxaparin SUB-Q 40 mg QDAY@2200 [facility] Administration Hydralazine HCl 100 mg 06/08/20 14:00 06/13/20 13:48 Apresoline PO Not Given Q8HR [facility] Insulin Glargine 21 units 06/13/20 14:39 Lantus SUB-Q HS [facility] Insulin Human Lispro 0 unit 06/03/20 22:00 06/12/20 22:18 Humalog SUB-Q 2 unit QHS [facility] Administration Protocol Insulin Human Regular 0 unit 06/03/20 07:30 06/13/20 12:00 Humulin R SUB-Q 3 unit AC BENJAMÍN Administration Protocol Lisinopril 10 mg 06/07/20 10:00 06/13/20 09:47 Zestril PO 10 mg QDAY BENJAMÍN Administration Metformin HCl 1,000 mg 06/03/20 08:00 06/13/20 09:46 Glucophage Xr PO 1,000 mg QDDIAB BENJAMÍN Administration Miscellaneous Medication 234 mg 06/02/20 23:00 Paliperidone Palmitate [Invega Sustenna] IM QMONTH BENJAMÍN Miscellaneous Medication 25 mg 06/03/20 10:00 Synjardy Xr 25-1,000 Mg Tablet PO DAILY BENJAMÍN Olanzapine 50 mg 06/03/20 22:00 06/12/20 22:07 Zyprexa PO 50 mg HS BENJAMÍN Administration Ondansetron HCl 4 mg 06/02/20 22:43 Zofran IV Q8H PRN Nausea And Vomiting Trazodone HCl 100 mg 06/02/20 23:00 Desyrel PO QHS PRN Insomnia Nutrition/Malnutrition Assess - Dietary Evaluation Nutrition/Malnutrition Findings: Nutrition Notes Start: 06/12/20 11:31 Freq: Status: Active Protocol: Document 06/12/20 11:31 COREY (Rec: 06/12/20 11:33 COREY [email or web address] [email or web address]) Nutrition Notes Need for Assessment generated from: LOS Initial or Follow up Brief Note Height 6 ft Weight 76.6 kg [place] Body Weight (kg) 80.90 BMI 22.8 Weight Status Appropriate Subjective/Other Information Pt screened for LOS. He has consumed 96% of meals since admission. Percent of energy/protein needs met: 100% energy and pro Burn Absent Trauma Absent Current % PO Good (75-100%) Minimum of two criteria No Is patient on ventilator? No Is Patient Ambulatory and/or Out of Bed No REE-([facility]-confined to bed) 2114.404 Calculation Used for Recommendations [facility] Additional Notes Pro needs 1-1.2g/k-92g/ day Fluid needs 1ml/kcal Nutrition Intervention Revisit per MD consult or patient Sign Off request: <FRANCA HERRMANN - Last Filed: 06/13/20 15:13> Assessment and Plan Assessment and plan: I agree with [place] [employer] note. Hospitalist Physical - Constitutional Vitals: Temp Pulse Resp BP Pulse Ox 98.7 F 83 20 100/63 100 06/13/20 11:39 06/13/20 11:39 06/13/20 11:39 06/13/20 11:39 06/13/20 11:39 HEART Score - HEART Score Troponin: Troponin T < 0.010 ng/mL (0.00-0.029) 06/03/20 18:22 Results - Labs CBC & Chem 7: 06/08/20 04:16 06/13/20 05:26 Labs: Laboratory Last Values WBC 5.0 K/mm3 (4.5-11.0) 06/08/20 04:16 RBC 4.20 M/mm3 (3.65-5.03) 06/08/20 04:16 Hgb 13.2 gm/dl (11.8-15.2) 06/08/20 04:16 Hct 38.2 % (35.5-45.6) 06/08/20 04:16 MCV 91 fl (84-94) 06/08/20 04:16 MCH 31 pg (28-32) 06/08/20 04:16 MCHC 35 % (32-34) H 06/08/20 04:16 RDW 15.1 % (13.2-15.2) 06/08/20 04:16 Plt Count 149 K/mm3 (140-440) 06/08/20 04:16 Lymph % (Auto) 28.2 % (13.4-35.0) 06/02/20 19:59 Cloud % (Auto) 14.0 % (0.0-7.3) H 06/02/20 19:59 Eos % (Auto) 1.0 % (0.0-4.3) 06/02/20 19:59 Baso % (Auto) 0.5 % (0.0-1.8) 06/02/20 19:59 Lymph # 1.2 K/mm3 (1.2-5.4) 06/02/20 19:59 Cloud # 0.6 K/mm3 (0.0-0.8) 06/02/20 19:59 Eos # 0.0 K/mm3 (0.0-0.4) 06/02/20 19:59 Baso # 0.0 K/mm3 (0.0-0.1) 06/02/20 19:59 Seg Neutrophils % 56.3 % (40.0-70.0) 06/02/20 19:59 Seg Neutrophils # 2.4 K/mm3 (1.8-7.7) 06/02/20 19:59 PT 13.7 Sec. (12.2-14.9) 06/02/20 19:59 INR 1.04 (0.87-1.13) 06/02/20 19:59 APTT 26.2 Sec. (24.2-36.6) 06/02/20 19:59 Sodium 143 mmol/L (137-145) 06/13/20 05:26 Potassium 4.3 mmol/L (3.6-5.0) 06/13/20 05:26 Chloride 106.8 mmol/L (98-107) 06/13/20 05:26 Carbon Dioxide 25 mmol/L (22-30) 06/13/20 05:26 Anion Gap 16 mmol/L 06/13/20 05:26 BUN 29 mg/dL (9-20) H 06/13/20 05:26 Creatinine 0.9 mg/dL (0.8-1.3) 06/13/20 05:26 Estimated GFR > 60 ml/min 06/13/20 05:26 BUN/Creatinine Ratio 32 % 06/13/20 05:26 Glucose 279 mg/dL (75-100) H 06/13/20 05:26 POC Glucose 269 (70-105) H 06/13/20 11:56 Hemoglobin A1c 8.9 % (4-6) H 06/03/20 13:56 Lactic Acid 2.30 mmol/L (0.7-2.0) H* 06/02/20 19:59 Calcium 9.1 mg/dL (8.4-10.2) 06/13/20 05:26 Total Bilirubin 0.20 mg/dL (0.1-1.2) 06/13/20 05:26 AST 14 units/L (5-40) 06/13/20 05:26 ALT 12 units/L (7-56) 06/13/20 05:26 Alkaline Phosphatase 64 units/L (35-129) 06/13/20 05:26 Troponin T < 0.010 ng/mL (0.00-0.029) 06/03/20 18:22 Total Protein 6.2 g/dL (6.3-8.2) L 06/13/20 05:26 Albumin 3.2 g/dL (3.9-5) L 06/13/20 05:26 Albumin/Globulin Ratio 1.1 % 06/13/20 05:26 TSH 5.020 mlU/mL (0.270-4.200) H 06/02/20 19:59 Thyroxine (T4) 6.0 ug/dL (4.0-12.0) 06/03/20 07:49 Urine Color Straw (Yellow) 06/03/20 00:33 Urine Turbidity Clear (Clear) 06/03/20 00:33 Urine pH 6.0 (5.0-7.0) 06/03/20 00:33 Ur Specific [place] 1.028 (1.003-1.030) 06/03/20 00:33 Urine Protein <15 mg/dl mg/dL (Negative) 06/03/20 00:33 Urine Glucose (UA) >=500 mg/dL (Negative) 06/03/20 00:33 Urine Ketones Tr mg/dL (Negative) 06/03/20 00:33 Urine Blood Neg (Negative) 06/03/20 00:33 Urine Nitrite Neg (Negative) 06/03/20 00:33 Urine Bilirubin Neg (Negative) 06/03/20 00:33 Urine Urobilinogen < 2.0 mg/dL (<2.0) 06/03/20 00:33 Ur Leukocyte Esterase Neg (Negative) 06/03/20 00:33 Urine WBC (Auto) 1.0 /HPF (0.0-6.0) 06/03/20 00:33 Urine RBC (Auto) 1.0 /HPF (0.0-6.0) 06/03/20 00:33 Urine Bacteria (Auto) 1+ /HPF (Negative) 06/03/20 00:33 Urine Mucus Few /HPF 06/03/20 00:33 Salicylates < 0.3 mg/dL (2.8-20.0) L 06/02/20 19:59 Urine Opiates Screen Presumptive negative 08/15/20 00:33 Urine Methadone Screen Presumptive negative 06/03/20 00:33 Acetaminophen 5.0 ug/mL (10.0-30.0) L 06/02/20 19:59 Ur Barbiturates Screen Presumptive negative 06/03/20 00:33 Valproic Acid 68.4 ug/mL (50-100) 06/04/20 14:11 Ur Phencyclidine Scrn Presumptive negative 06/03/20 00:33 Ur Amphetamines Screen Presumptive negative 06/03/20 00:33 U Benzodiazepines Scrn Presumptive negative 06/03/20 00:33 Urine Cocaine Screen Presumptive negative 06/03/20 00:33 U Marijuana (THC) Screen Presumptive negative 06/03/20 00:33 Drugs of Abuse Note Disclamer 06/03/20 00:33 Plasma/Serum Alcohol < 0.01 % (0-0.07) 06/02/20 19:59 Gardner/IV: Voiding Method Condom Catheter IV Catheter Type [Left Wrist] INT / Saline Lock IV Catheter Type [Right INT / Saline Lock Forearm] Active Medications - Current Medications Current Medications: Generic Name Dose Route Start Last Admin Trade Name Freq PRN Reason Stop Dose Admin Acetaminophen 650 mg 06/02/20 22:43 Tylenol PO Q4H PRN Fever >101 Aspirin 81 mg 06/03/20 10:00 06/13/20 09:46 Halfprin Ec PO 81 mg DAILY [facility] Administration Atorvastatin Calcium 40 mg 06/03/20 22:00 06/12/20 22:06 Lipitor PO 40 mg QHS [facility] Administration Dextrose 50 ml 06/02/20 22:39 D50w (25gm) Syringe IV Q30MIN PRN Hypoglycemia Protocol Divalproex Sodium 500 mg 06/03/20 10:00 06/13/20 09:[address] PO 500 mg BID [facility] Administration Enoxaparin Sodium 40 mg 06/05/20 22:00 06/12/20 22:07 Enoxaparin SUB-Q 40 mg QDAY@2200 [facility] Administration Hydralazine HCl 50 mg 06/13/20 14:43 Apresoline PO Q8HR [facility] Insulin Glargine 21 units 06/13/20 14:39 Lantus SUB-Q HS [facility] Insulin Human Lispro 0 unit 06/03/20 22:00 06/12/20 22:18 Humalog SUB-Q 2 unit QHS [facility]N Administration Protocol Insulin Human Regular 0 unit 06/03/20 07:30 06/13/20 12:00 Humulin R SUB-Q 3 unit AC BENJAMÍN Administration Protocol Lisinopril 10 mg 06/07/20 10:00 06/13/20 09:47 Zestril PO 10 mg QDAY [facility]ENJAMÍN Administration Metformin HCl 1,000 mg 06/03/20 08:00 06/13/20 09:46 Glucophage Xr PO 1,000 mg QDDIAB [facility]AMÍN Administration Miscellaneous Medication 234 mg 06/02/20 23:00 Paliperidone Palmitate [Invega Sustenna] IM QMONTH BENJAMÍN Miscellaneous Medication 25 mg 06/03/20 10:00 Synjardy Xr 25-1,000 Mg Tablet PO DAILY BENJAMÍN Olanzapine 50 mg 06/03/20 22:00 06/12/20 22:07 Zyprexa PO 50 mg HS [facility]ENJAMÍN Administration Ondansetron HCl 4 mg 06/02/20 22:43 Zofran IV Q8H PRN Nausea And Vomiting Trazodone HCl 100 mg 06/02/20 23:00 Desyrel PO QHS PRN Insomnia Nutrition/Malnutrition Assess - Dietary Evaluation Nutrition/Malnutrition Findings: Nutrition Notes Start: 06/12/20 11:31 Freq: Status: Active Protocol: Document 06/12/20 11:31 COREY (Rec: 06/12/20 11:33 COREY [id number] [email or web address]) Nutrition Notes Need for Assessment generated from: LOS Initial or Follow up Brief Note Height 6 ft Weight 76.6 kg [place] Body Weight (kg) 80.90 BMI 22.8 Weight Status Appropriate Subjective/Other Information Pt screened for LOS. He has consumed 96% of meals since admission. Percent of energy/protein needs met: 100% energy and pro Burn Absent Trauma Absent Current % PO Good (75-100%) Minimum of two criteria No Is patient on ventilator? No Is Patient Ambulatory and/or Out of Bed No REE-([facility]-confined to bed) 6850.404 Calculation Used for Recommendations [facility] Additional Notes Pro needs 1-1.2g/k-92g/ day Fluid needs 1ml/kcal Nutrition Intervention Revisit per MD consult or patient Sign Off request:
[2020-06-13] MEDS: ENOXAPARIN 40 MG/0.4 ML INJ SUB-Q SCH (21:47)
[2020-06-13] MEDS: INSULIN LISPRO 100 UNIT/ML VIAL 3 mL SUB-Q SCH (21:50)
[2020-06-13] MEDS ORDERED: INSULIN GLARGINE 100 UNITS/ML SUB-Q SCH (22:00)
[2020-06-14] MEDS: hydrALAZINE 100 MG TAB PO SCH ×2 (05:41→16:29)
[2020-06-14] MEDS: metFORMIN XR 500MG TAB PO SCH (09:25)
[2020-06-14] MEDS: ASPIRIN EC 81 MG TAB PO SCH (09:25)
[2020-06-14] MEDS: DIVALPROEX DR 500 MG TAB PO SCH (09:26)
[2020-06-14] MEDS: LISINOPRIL 10 MG TAB PO SCH (09:51)
[2020-06-14] MEDS: INSULIN REGULAR, HUMAN 100 UNIT/ML 3ML VIAL SUB-Q SCH ×3 (10:25→16:27)
--- NOTE | 2020-06-14 13:38 | Discharge Summary ---
<STONE CERVANTESAlen - Last Filed: 06/14/20 14:17> Providers - Providers Date of Admission: 06/05/20 15:51 Date of discharge: 06/14/20 Attending physician: FRANCA HERRMANN 06/02/20 21:37 Consult to Mental Health [CONS] Stat Reason For Exam: acute psychosis 06/03/20 11:12 Consult to Physician [CONS] Routine Comment: Consulting Provider: WILLIAMS MELCHOR Physician Instructions: Reason For Exam: altered mentation 06/04/20 11:49 Consult to Case Management [CONS] Routine Services Needed at Discharge: Lithopress Operator Notified:: PURCHASING CONTRACTING CLERK Additional Physician Instructions: ?? Needs placement 06/04/20 11:51 Physical Therapy Evaluation and Treat [CONS] Routine Comment: Reason For Exam: Evaluate for rehab versus prison facility 06/05/20 18:05 Physical Therapy Evaluation and Treat [CONS] Urgent Comment: Reason For Exam: Reevaluation Primary care physician: CRISIS INTERVENTION COUNSELOR Hospitalization Condition: Stable Pertinent studies: 06/02 CXR showed no acute findings 06/04: CTH showed continued mild microvascular angiopathy and cerebral atrophy without CT evidence of acute intracranial hemorrhage or significant interval change from 05/27/2020. Hospital course: This is a 69 year old male with schizophrenia, diabetes mellitus, [place] s/p PCI/cardiac stents and current smoker who presents with altered mental status. Patient was discharged on 06/01 from this hospital after admission for altered mental status. On 06/02 patient was conversant and ambulatory in the morning however on presentation he was only responding to noxious stimuli. According to EMS, BG 538. He was admitted with acute metabolic encephalopathy. Of note on recent admission he presented with AMS and an acute CVA was ruled out. PT recommends SNF placement, [facility] is working on placement. For acute encephalopathy and mental health history on 06/03 MH consult was obtained which recommended do not recommend acute inpatient psychiatric treatment at this time, PT consulted for eval and CM for placement. On 06/04 his blood culture and urine analysis was negative therefore his antibiotics were stopped. On 06/05, PT recommended skilled PT services. Neurology was consulted for altered mental status however they recommended for patient to follow up with neurology as outpatient in 2-3 weeks for EEG monitoring and has signed off at this time. Reevaluation by PT on 06/07 recommended SNF placement and [facility] ordered to work on placement. On 06/08 he had hypoglycemia in the AM and hypoglycemia protocol was initiated. He also had hypokalemia and his potassium was repleted. On 06/09 his Lantus dose was decreased for recurrent hypoglycemia. And finally on 06/10 is Lantus dose was increased to 21 units for hyperglycemia. Care is being transferred to [facility]. He to follow-up with his primary care physician within 1 to 2 weeks of discharge and will need to follow-up outpatient with a neurologist for an EEG in 1-2 weeks of discharge. 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 Current Visit: Yes Status: chronic Plan to address problem: - Supportive care - Verbal redirection, verbal prompting and redirecting - Falls precautions (2) RUDY (acute kidney injury) Current Visit: Yes Status: Resolved Plan to address problem: - Admit Cr 1.1 which has trended down to 0.7 - Likely secondary to vasomotor nephropathy (3) Acute metabolic encephalopathy Current Visit: Yes Status: Resolved Plan to address problem: - Unclear etiology - History of schizophrenia and he is on olanzapine and valproic acid - UA (-), UC NGTD - Neurology recommend for patient to follow up with neurology as outpatient in 2-3 weeks for EEG monitoring and has signed off at this time (4) Schizophrenia Current Visit: Yes Status: Chronic Plan to address problem: - Continue Depakote, Invega, and Zyprexa - 06/05 valproic acid level 68 - MH consulted does not recommend inpatient psych at this time - PT recommends SNF (5) Diabetes Current Visit: Yes Status: Chronic Plan to address problem: - CC diet - Lantus subq 21 units HS - Metformin 1000mg BID PO (6) Hypertension Current Visit: No Status: Chronic Qualifiers: Hypertension type: essential hypertension Qualified Code(s): I10 - Essential (primary) hypertension Plan to address problem: - Continue Lisinopril and Hydralazine (7) Tobacco abuse Current Visit: Yes Status: Chronic Plan to address problem: - Smoking cessation counseling Disposition: DC/[place]-03 SNF W [facility] CERT Core Measure Documentation - Palliative Care Palliative Care/ Comfort Measures: Not Applicable - Core Measures Any of the following diagnoses?: none Exam - Constitutional Vitals: Temp Pulse Resp BP Pulse Ox 98.9 F 81 18 122/58 98 06/14/20 07:41 06/14/20 09:51 06/14/20 07:41 06/14/20 09:51 06/14/20 07:41 General appearance: Present: no acute distress - EENT Eyes: Present: PERRL, EOM intact ENT: hearing intact - Neck Neck: Present: supple, normal ROM - Respiratory Respiratory effort: normal Respiratory: bilateral: CTA - Cardiovascular Rhythm: regular Heart Sounds: Present: S1 & S2. Absent: systolic murmur, diastolic murmur - Extremities Extremities: no ischemia, pulses intact, pulses symmetrical, No edema, normal temperature, normal color, Full ROM Peripheral Pulses: within normal limits - Abdominal General gastrointestinal: Present: soft, non-tender, non-distended, normal bowel sounds - Integumentary Integumentary: Present: clear, warm, dry - Musculoskeletal Musculoskeletal: strength equal bilaterally - Psychiatric Psychiatric: appropriate mood/affect, cooperative - Neurologic Neurologic: CNII-XII intact, no focal deficits, moves all extremities - Allied Health Allied health notes reviewed: nursing, PT, ST, social work, case management Plan Activity: advance as tolerated Diet: diabetic Special Instructions: record daily BP diary, record blood sugar diary, smoking cessation Additional Instructions: Report to the nearest emergency department or call your primary care physicians if you have worsening symptoms. Please follow-up with your primary care physician within 1 to 2 weeks of discharge and neurology as recommended for you to follow up with neurology as outpatient in 2-3 weeks for EEG monitoring and has signed off at this time. Dr. Shea's phone number has been provided to you however you can go to any neurologist of your choosing. Follow up with: TELLY DOOLEY MD [Primary Care Provider] - 7 Days AMANDA SHEA MD [Staff Physician] - 7 Days Prescriptions: traZODone [Desyrel] 100 mg PO QHS PRN #30 tablet PRN Reason: Insomnia Paliperidone Palmitate [Invega Sustenna] 234 mg IM QMONTH #1 syr hydrALAZINE [Apresoline TAB] 50 mg PO Q8HR #[address] [Depakote Dr] 500 mg PO BID #60 tablet metFORMIN XR [Glucophage XR] 1,000 mg PO QDDIAB #60 tablet Insulin Regular, Human [HumuLIN R] 3 unit SUB-Q AC #1 vial Insulin Glargine [Lantus VIAL] 21 units SUB-Q HS #1 vial Synjardy Xr 25-1,000 mg Tablet 25 mg PO DAILY #30 lisinopriL [Zestril TAB] 10 mg PO QDAY #30 tablet OLANzapine [Zyprexa] 50 mg PO HS #30 tablet <FRANCA HERRMANN - Last Filed: 06/14/20 16:40> Providers - Providers Date of Admission: 06/05/20 15:51 Attending physician: FRANCA HERRMANN 06/02/20 21:37 Consult to Mental Health [CONS] Stat Reason For Exam: acute psychosis 06/03/20 11:12 Consult to Physician [CONS] Routine Comment: Consulting Provider: WILLIAMS MELCHOR Physician Instructions: Reason For Exam: altered mentation 06/04/20 11:49 Consult to Case Management [CONS] Routine Services Needed at Discharge: Lithopress Operator Notified:: PURCHASING CONTRACTING CLERK Additional Physician Instructions: ?? Needs placement 06/04/20 11:51 Physical Therapy Evaluation and Treat [CONS] Routine Comment: Reason For Exam: Evaluate for rehab versus prison facility 06/05/20 18:05 Physical Therapy Evaluation and Treat [CONS] Urgent Comment: Reason For Exam: Reevaluation Primary care physician: CRISIS INTERVENTION COUNSELOR Exam - Constitutional Vitals: Temp Pulse Resp BP Pulse Ox 98.6 F 85 18 111/71 98 06/14/20 16:25 06/14/20 16:25 06/14/20 16:25 06/14/20 16:25 06/14/20 16:25
[2020-06-14 16:26] VITALS: BP 111/71
== END 2020-06-14 17:51 | DRG 70 ==
LOC: ED 18:53 → 3A 21:39 → 4A 23:37 → OBSVTOIN 06-05 15:51
PROVIDERS: ADMIT Internal Medicine; ATTEND Internal Medicine
DX: G93.41 Metabolic encephalopathy (principal); N17.0 Acute kidney failure with tubular necrosis; F23 Brief psychotic disorder; E87.0 Hyperosmolality and hypernatremia; E87.2 Acidosis; R73.9 Hyperglycemia, unspecified; F20.9 Schizophrenia, unspecified; F25.9 Schizoaffective disorder, unspecified; D69.6 Thrombocytopenia, unspecified; E11.65 Type 2 diabetes mellitus with hyperglycemia; F17.200 Nicotine dependence, unspecified, uncomplicated; I10 Essential (primary) hypertension; E03.9 Hypothyroidism, unspecified; I25.2 Old myocardial infarction; Z95.818 Presence of other cardiac implants and grafts; Z79.899 Other long term (current) drug therapy; Z79.82 Long term (current) use of aspirin; Z79.84 Long term (current) use of oral hypoglycemic drugs; Z79.4 Long term (current) use of insulin
CPT/HCPCS: 36415; 70450; 71045; 80048; 80053; 80164; 80307; 80320; 81001; 82140; 82962; 83036; 84436; 84443; 84484; 85025; 85027; 85610; 85730; 87086; 93005; 99406; G0378; A9270-GY; G0480; J0692; J1650; J1815; J7030; J7040; U0003-CS